=== PATIENT | male | born 1940 | race Caucasian/White ===

== ENCOUNTER → 2022-04-15 08:36 | Outpatient (BNVA) | payer MEDICARE, BC, SELFPAY | PROVIDERS: PCP Family Medicine; Visit Provider Nurse Practitioner Family | DX: G20 Parkinson's disease (principal); G47.52 REM sleep behavior disorder; I95.1 Orthostatic hypotension | CPT/HCPCS: 99202 ==

== ENCOUNTER → 2022-07-15 10:25 | Outpatient (BNVA) | payer MEDICARE, BC, SELFPAY | PROVIDERS: PCP Family Medicine; Visit Provider Nurse Practitioner Family | DX: G20 Parkinson's disease (principal); I95.1 Orthostatic hypotension; R48.8 Other symbolic dysfunctions; R41.3 Other amnesia | CPT/HCPCS: 99212 ==

== ENCOUNTER 2022-11-18 10:20 | Outpatient (AMB) | payer MEDICARE, BC, SELFPAY ==
[2022-11-18 10:24] VITALS: BP 94/60; PULSE 77; O2SAT 96; BMI 26.9
--- NOTE | 2022-11-18 10:24 | MHC.OFFVIS ---
Intake Vital Signs 11/18/22 10:24 Height 6 ft 2 in Weight 209 lb 6 oz BMI 26.9 BP 94/60 Blood Pressure Location Lt brachial Position Sitting Pulse 77 Pulse Source Pulse Oximeter Pulse Oximetry (%) 96 Oxygen Delivery Method Room Air Intake Visit Reasons: 4m follow up Parkinson's - Confirmed Intake Note: Pt presents as a 4 month f/u for Parkinsons. Pt states Things could be better. Pt's states dropping blood pressure, sudden weakness, basically passing out. last time was last Thursday. Pt stated he wasn't doing well so they got him in a chair and his eyes were wide open and blank stare. he also was stiff and after about 30 seconds came out of it and was very tired. sometimes just a bad day all around where he is weak and just clearly the blood pressure is dropping. The fainting passing out thing happened a few weeks ago, stopped the pramipexole and started the new med that helps but still feeling weak. standing up leads to feeling a period of weakness. Central Control Room Operator Required: No Accompanied by: Spouse Allergies No Known Allergies Allergy (Verified 11/18/22 10:33) Medication List - Last Reconciled 11/18/22 by KIKE Montano carbidopa-levodopa 25-100 mg 1 tab PO TID 90 days ciclopirox 8% mL topical BEDTIME clonazepam 0.5 mg PO BEDTIME droxidopa 100 mg PO TID fludrocortisone 0.1 mg PO DAILY 90 days midodrine 5 mg PO BID 90 days rasagiline 1 mg PO DAILY 90 days rivaroxaban (Xarelto) 20 mg PO QPM HPI HPI Comments History of Present Illness Details 82-yr-old male presents for f/u visit, accompanied by his . Pt has had an increase episodes of weakness, lightheadedness, and either near-syncope or brief syncope. Last week when in [place], it was rather hot, he was sitting on a pool edge, when he became weak, lightheaded, and blanked out a/w RLE spasms and his mouth seemed to pull in x's 30 sec (as he came out of this, he had one weird cough) and this was f/b fatigue. There was no urinary inc or tongue biting during the episode. Pt has reached out to the office, and Dr Davalos advised them to stop the pramipexole and start Droxydopa 100mg tid in addition to his mididrone and fludrocortisone. Since starting Droxydopa 100mg tid- BP is a bit higher (84/56-137/86, although still orthostatic) but does not notice any decrease in his OH s/s. He has not noticed any worsening of his PD s/s since stopping Pramipexole. Pt's current PD medication regimen: CD-LD 25-100mg 1 tab tid, Rasagiline 1mg qd. ADL's: Ind. Usually showers when is home. Swallowing: No issues Drooling: At night- at times Orthostatic lightheadedness: as above Constipation: None Freezing: None Stiffness: None Tremor: Not noticing much tremor Falls: He has had near falls- they think possibly r/t almost passing out. He had a fall in [place]- tripped over a few steps. Hallucinations: None Memory: Still some STM lapses and more difficulty w/ calculations. He does play bridge with friends- and often wins Sleep: Still waking up 3 times per night Exercise: Not much exercise. [facility], [facility] Medical History Anaplasmosis Atrial fibrillation COVID-19 Prostate cancer Surgical History Hx of appendectomy Status post Mohs surgery Family History Father Alzheimer disease Social History (Updated 11/18/22 @ 10:35 by Flor Aguilar CMA) Alcohol intake: current Alcohol intake frequency: holidays/special occasions only Patient Tobacco Use Status: Former Tobacco user Quit Date: 10/14/1971 Physical Exam Vital Signs: Last Vital Signs Pulse 77 11/18/22 10:24 BP 94/60 11/18/22 10:24 Pulse Ox 96 11/18/22 10:24 Oxygen Delivery Method Room Air 11/18/22 10:24 BMI result Body Mass Index 26.9 Const General: cooperative and no acute distress Resp Effort & Inspection: normal respiratory effort and able to speak in complete sentences Neuro Other: Expression: Decreased expression and blink Voice: Soft Tremor: None Tone: Mild RUE tone Dyskinesia: None today FFM: Bradykinesia- more so on right Foot taps: Mild bradykinesia Gait: Slow to stand, decreased arm swing- no choreatic hand movements, short steps, steady. Psych: pleasant affect Cognition: A&O x's 3. Less bradyphrenia Assessment & Plan Assessment & Plan (1) Parkinson's disease: Code(s): G20 - Parkinson's disease (2) Orthostatic hypotension: Code(s): I95.1 - Orthostatic hypotension (3) Memory difficulties: Code(s): R41.3 - Other amnesia (4) REM sleep behavior disorder: Code(s): G47.52 - REM sleep behavior disorder Plan Stopped Pramipexole- to reduce risk of OH. Continue Carbidopa-levodopa 25-100mg 1 tab tid (am, noon, pm) Continue Rasagiline 1mg qam. Continue Clonazepam 0.5mg qhs- we can manage this if needed. Continue Midodrine 5mg bid (am and noon) Continue Fludrocortisone 0.1mg qam. Increase Droxydopa from 100mg tid to 200mg tid- hold for BP 160/100/ Continue increased fluids- add electrolyte supplement such as liquid IV, gatorade/powerade. Monitor OH s/s and for worsening slowness. Neuro-psych eval as ordered. Future considerations: Holding Rasagiline, Adjusting CD-LD or trying Rytary. f/u in 4 months or sooner prn. Medications: Changed From droxidopa give consistently with OR without food, upon rising, at midday, late PM/at least 3hrs before bedtime 100 mg PO TID 90 caps 0RF To droxidopa give consistently with OR without food, upon rising, at midday, late PM/at least 3hrs before bedtime 200 mg (2 x 100 mg) PO TID 30 days 180 caps 0RF Coding Level of Care Code Est Pt Level 4 (73090) Diagnoses Parkinson's disease G20 Orthostatic hypotension I95.1 Memory difficulties R41.3 REM sleep behavior disorder G47.52
== END 2022-11-18 11:26 | disposition home or self-care (01) ==
PROVIDERS: Visit Provider Nurse Practitioner Family
DX: G20 Parkinson's disease (principal); I95.1 Orthostatic hypotension; R41.3 Other amnesia; G47.52 REM sleep behavior disorder
CPT/HCPCS: 99214

== ENCOUNTER → 2022-11-18 10:20 | Outpatient (BNVA) | payer MEDICARE, BC, SELFPAY | PROVIDERS: Visit Provider Nurse Practitioner Family | DX: G20 Parkinson's disease (principal); I95.1 Orthostatic hypotension; R41.3 Other amnesia; G47.52 REM sleep behavior disorder; Z79.899 Other long term (current) drug therapy | CPT/HCPCS: 99212 ==

== ENCOUNTER 2023-03-24 10:55 | Outpatient (AMB) | payer MEDICARE, BC, SELFPAY ==
[2023-03-24 10:57] VITALS: BP 114/72; PULSE 62; O2SAT 97; BMI 26.4
--- NOTE | 2023-03-24 10:57 | MHC.OFFVIS ---
Intake Vital Signs 03/24/23 10:57 Height 6 ft 2 in Weight 206 lb BMI 26.4 BP 114/72 Blood Pressure Location Rt brachial Position Sitting Pulse 62 Pulse Source Pulse Oximeter Pulse Oximetry (%) 97 Oxygen Delivery Method Room Air Intake Visit Reasons: 4m f/u Parkinson's - LVM Intake Note: Patient presents for 4 month follow up parkinson's. my balance is getting worst and blacking out and falling Allergies No Known Allergies Allergy (Verified 03/24/23 11:03) Medication List - Last Reconciled 03/29/23 by KIKE Montano carbidopa-levodopa 25-100 mg 1 tab PO TID 90 days ciclopirox 8% mL topical BEDTIME clonazepam 0.5 mg PO BEDTIME droxidopa 300 mg PO TID 30 days fludrocortisone 0.1 mg PO DAILY 90 days midodrine 5 mg PO TID 30 days rasagiline 1 mg PO DAILY 90 days rivaroxaban (Xarelto) 20 mg PO QPM HPI HPI Comments History of Present Illness Details 82-yr-old male presents for f/u visit. Pt's primary concerns are: Pt is having more frequent episodes of orthostatic lightheadedness, almost to the point of blacking out. Occurs more so in the evening. This can occur immediately upon standing, but more often occurs after taking several steps or even longer. In the home, he is able to mitigate by having access to chairs/seats. His BP has been running a bit higher than before, the SBP is now usually in the 110s. He is drinking more fluids- now drinking a full glass of water w/ his meds. His Droxidopa was increased to 300mg tid since the last visit. Pt's current PD medication regimen: CD-LD 25-100mg 1 tab tid, Rasagiline 1mg qd. Droxidopa 300mg tid (8am, 12pm, 4:30pm), fludrocortisone 0.1mg qam, midodrine 5mg bid (8am and 12pm) ADL's: Ind. Usually showers when is home. Swallowing: No issues Drooling: At night- at times Orthostatic lightheadedness: as above Constipation: None Freezing: None Stiffness: None Tremor: Not noticing much tremor Falls: One fall, thought there was a chair and tried to sit. Hallucinations: None Memory: Still some STM lapses and more difficulty w/ calculations. Still playing card games- and doing well. Sleep: Still waking up at night. Exercise: Not much exercise. Plans to try swimming in the small pool at the [facility]. [facility] Medical History (Reviewed 11/18/22 @ 10:35 by Flor Aguilar [facility]) Anaplasmosis Atrial fibrillation COVID-19 Prostate cancer Surgical History Status post Mohs surgery Hx of appendectomy Family History Father Alzheimer disease Social History Alcohol intake: current Alcohol intake frequency: holidays/special occasions only Patient Tobacco Use Status: Former Tobacco user Quit Date: 10/14/1971 Review of Systems Const All systems reviewed & are unremarkable except as noted in HPI and below Physical Exam Vital Signs: Last Vital Signs Pulse 62 03/24/23 10:57 BP 114/72 03/24/23 10:57 Pulse Ox 97 03/24/23 10:57 Oxygen Delivery Method Room Air 03/24/23 10:57 BMI result Body Mass Index 26.4 Const General: cooperative and no acute distress Resp Effort & Inspection: normal respiratory effort and able to speak in complete sentences Neuro Other: General: A&O x's 3 Expression: Decreased expression and blink Voice: Soft Tremor: None Tone: Mild RUE tone Dyskinesia: None today FFM: Bradykinesia- more so on right Foot taps: Mild bradykinesia Gait: Slow to stand, decreased arm swing- no chorea in hands, short steps, steady. 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 Continue Clonazepam 0.5mg qhs- we can manage this if needed. Increase Midodrine from 5mg bid (am and noon) to 5mg bid (am and noon) and 2.5-5mg (4:30pm) Continue Fludrocortisone 0.1mg qam. Continue Droxydopa 300mg tid- hold for BP 160/100 Continue increased fluids w/ electrolyte supplement such as liquid IV, gatorade/powerade. Neuro-psych eval as ordered. Previous PD trials- Pramipexole- stopped to reduce OH risk. Future considerations: Holding Rasagiline, Adjusting CD-LD or trying Rytary. ? f/u in 4 months or sooner prn. Medications: Changed From midodrine do not give last dose of day after 6PM or within 4 hrs of bedtime 5 mg PO BID 60 tabs 3RF 30 days To midodrine do not give last dose of day after 6PM or within 4 hrs of bedtime 5 mg PO TID 90 tabs 3RF 30 days Coding Level of Care Code Est Pt Level 4 (89194) Diagnoses Parkinson's disease without dyskinesia G20.A1 Orthostatic hypotension I95.1 REM sleep behavior disorder G47.52 Acalculia R48.8
== END 2023-03-24 12:07 | disposition home or self-care (01) ==
PROVIDERS: PCP Family Medicine; Visit Provider Nurse Practitioner Family
DX: G20.A1 Parkinson's disease without dyskinesia, without mention of fluctuations (principal); I95.1 Orthostatic hypotension; G47.52 REM sleep behavior disorder; R48.8 Other symbolic dysfunctions
CPT/HCPCS: 99214

== ENCOUNTER → 2023-03-24 10:55 | Outpatient (BNVA) | payer MEDICARE, BC, SELFPAY | PROVIDERS: PCP Family Medicine; Visit Provider Nurse Practitioner Family | DX: G20.A1 Parkinson's disease without dyskinesia, without mention of fluctuations (principal); I95.1 Orthostatic hypotension; G47.52 REM sleep behavior disorder; R48.8 Other symbolic dysfunctions | CPT/HCPCS: 99212 ==

== ENCOUNTER 2023-07-22 10:49 | Outpatient (AMB) | payer MEDICARE, BC, SELFPAY ==
--- NOTE | 2023-07-22 10:52 | A.OFFVIS_ITS ---
Intake Vital Signs 07/22/23 10:53 Height 6 ft 2 in Weight 199 lb 8 oz BMI 25.6 BP 88/58 L Blood Pressure Location Rt brachial Position Sitting Respiration 16 Pulse 81 Pulse Source Pulse Oximeter Pulse Oximetry (%) 97 Oxygen Delivery Method Room Air Intake Visit Reasons: follow up-conf Intake Note: Pt presents for a 4 month follow up for Parkinson's. Pt reports an increase in falls over the last few weeks, increased weakness, and walking has become a challenge. His appetite is decreasing and he is sleeping more during the day. Manager Pest Required: No Allergies No Known Allergies Allergy (Verified 07/22/23 10:52) Medication List - Last Reconciled 07/22/23 by Delmis Davalos MD carbidopa-levodopa 25-100 mg 1 tab PO TID 90 days clonazepam 0.5 mg PO BEDTIME droxidopa 300 mg PO TID 30 days fludrocortisone 0.1 mg PO DAILY 90 days midodrine 5 mg PO TID 30 days rasagiline 1 mg PO DAILY 90 days rivaroxaban (Xarelto) 20 mg PO QPM HPI HPI Comments History of Present Illness Details 83-yr-old male presents for f/u visit. Pt's primary concerns are: Pt is having more falls - had 3 major falls in the past few weeks .The last fall was in the kitchen - he stood up after sitting for a while .The fall prior to that was in the hallway outside the bathroom . The falls are usually preceded by feeling of not having control and it is usually standing up after prolonged period of time and usually in the later part of the day. e Frequent episodes of orthostatic lightheadedness, almost to the point of bl acking out. Occurs more so in the evening. This can occur immediately upon standing, but more often occurs after taking several steps or even longer. In the home, he is able to mitigate by having access to chairs/seats. His BP has been running a bit higher than before, the SBP is now usually in the 110s. He is drinking more fluids- now drinking a full glass of water w/ his meds. His Droxidopa was increased to 300mg tid since the last visit. Pt's current PD medication regimen: CD-LD 25-100mg 1 tab tid, Rasagiline 1mg qd. Droxidopa 300mg tid (8am, 12pm, 4:30pm), fludrocortisone 0.1mg qam, midodrine 5mg bid (8am and 12pm) ADL's: Ind. Usually showers when is home. Swallowing: No issues Drooling: At night- at times Orthostatic lightheadedness: as above Constipation: None Freezing: None Stiffness: None Tremor: Not noticing much tremor Falls: One fall, thought there was a chair and tried to sit. Hallucinations: None Memory: Still some Short term lapses and more difficulty w/ calculations. Still playing card games- and doing well. Sleep: Still waking up at night. Exercise: Not much exercise. Plans to try swimming in the small pool at the [employer]. [facility] Medical History 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 Atrial fibrillation Prostate cancer Surgical History Status post Mohs surgery Hx of appendectomy Family History Father Alzheimer disease Social History Alcohol intake: current Alcohol intake frequency: holidays/special occasions only Patient Tobacco Use Status: Former Tobacco user Quit Date: 10/14/1971 Physical Exam Vital Signs: Last Vital Signs Pulse 81 07/22/23 10:53 Resp 16 07/22/23 10:53 BP 88/58 L 07/22/23 10:53 Pulse Ox 97 07/22/23 10:53 Oxygen Delivery Method Room Air 07/22/23 10:53 BMI result Body Mass Index 25.6 Const General: cooperative and no acute distress Resp Effort & Inspection: normal respiratory effort and able to speak in complete sentences Neuro Other: General: A&O x's 3 Expression: Decreased expression and blink Voice: Soft Tremor: None Tone: Mild RUE tone Dyskinesia: None today FFM: Bradykinesia- more so on right Foot taps: Mild bradykinesia Gait: Slow to stand, decreased arm swing- no chorea in hands, short steps, steady. 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 Continue Clonazepam 0.5mg qhs- we can manage this if needed. Midodrine from 5mg bid (am and noon) to 5mg tid (am and noon) and 2.5-5mg (4:30pm) Increase Fludrocortisone 0.1mg am - noon evening Continue Droxydopa 300mg tid- hold for BP 160/100 Continue increased fluids w/ electrolyte supplement such as liquid IV, gatorade/powerade. Neuro-psych eval as ordered. Compression stockings, increase salt , take time when he changes position from sitting to standing position will refer to [facility] at [facility] ? f/u in 4 months or sooner prn. Orders: Referrals Neurology Referral G20.A1 - Parkinson's disease without dyskinesia, without mention of fluctuations, I95.1 - Orthostatic hypotension Medications: New [compression stockings] As directed 1 ea 0RF orthostatic hypotension Changed From fludrocortisone 0.1 mg PO DAILY 90 days 90 tabs 1RF To fludrocortisone 0.1 mg PO TID 270 tabs 1RF 90 days Coding Level of Care Code Est Pt Level 5 (69261) Diagnoses Parkinson's disease without dyskinesia G20.A1 Orthostatic hypotension I95.1 REM sleep behavior disorder G47.52 Acalculia R48.8 Time Spent (min) 45 Comment 25 min with patient, 10 min reviewing records 10 min documenting
[2023-07-22 10:53] VITALS: BP 88/58; PULSE 81; RESP 16; O2SAT 97; BMI 25.6
== END 2023-07-22 11:42 | disposition home or self-care (01) ==
PROVIDERS: PCP Family Medicine; Visit Provider Psychiatry & Neurology Neurology
DX: G20.A1 Parkinson's disease without dyskinesia, without mention of fluctuations (principal); I95.1 Orthostatic hypotension; G47.52 REM sleep behavior disorder; R48.8 Other symbolic dysfunctions
CPT/HCPCS: 99215

== ENCOUNTER → 2023-07-22 10:49 | Outpatient (BNVA) | payer MEDICARE, BC, SELFPAY | PROVIDERS: PCP Family Medicine; Visit Provider Psychiatry & Neurology Neurology | DX: G20.A1 Parkinson's disease without dyskinesia, without mention of fluctuations (principal); I95.1 Orthostatic hypotension; R29.6 Repeated falls; G47.52 REM sleep behavior disorder; R48.8 Other symbolic dysfunctions | CPT/HCPCS: 99212 ==

== ENCOUNTER 2023-10-28 17:25 | Inpatient (IN) | payer MEDICARE, SELFPAY ==
[2023-10-28] VITALS (7 sets, daily range): BP systolic 170–207; BP diastolic 98–147; PULSE 63–79; RESP 12–18; TEMP 36.8–37; O2SAT 96–98; BMI 23.5; BMI 25.2
--- NOTE | ~2023-10-28 | MR_ITS ---
MRI OF THE BRAIN WITHOUT IV CONTRAST INDICATION: Speech difficulty. Rule out stroke. COMPARISON: CTA head and neck October 28, 2023. TECHNIQUE: Multiplanar multisequence MR imaging of the brain was obtained without IV contrast. FINDINGS: There is no hydrocephalus, extra-axial surface collection, or herniation. There is global cerebral volume loss and there is moderate chronic microangiopathy. The major flow voids at the skull base are preserved. There is no acute infarct on diffusion-weighted imaging. There is no intracranial hemorrhage on the gradient recalled echo acquisition. The midline structures are normal. The cerebellar tonsils are normally positioned. The cerebellum and brainstem are normal. The craniocervical junction is normal. There is an indeterminate 2 cm marrow replacing lesion within hyperostosis frontalis interna in the right frontal calvarium on image 21 series 7 that can be further assessed with bone scan. The visualized soft tissues are unremarkable. There is hyperostosis frontalis interna. MR/MR head/brain wo con IMPRESSION: * No acute intracranial findings. No acute infarcts. * There is global volume loss and there is moderate chronic microangiopathy. * There is an indeterminate 2 cm marrow replacing lesion within hyperostosis frontalis interna in the right frontal calvarium on image 21 series 7 that can be further assessed with bone scan.
--- NOTE | ~2023-10-28 | CT_ITS ---
EXAMINATION: CT angio head neck stroke CLINICAL INFORMATION: Stroke protocol. COMPARISON: No relevant prior imaging. TECHNIQUE: Materials Management Clerk images were obtained. A CT angiogram of the head and neck was performed in the arterial phase after the intravenous administration of 70 mL Omnipaque 350. Pre and delayed postcontrast images of the head were also obtained. 3D images were processed on an independent workstation under concurrent supervision. Arterial stenoses are measured in accordance with NASCET criteria or similar method if applicable. This CT examination was performed using dose optimization techniques as appropriate, including one or more of the following: Automated exposure control, iterative reconstruction, and adjustment of technique factors (mA and/or kVp) according to patient size (this includes techniques or standardized protocols for targeted exams where dose is matched to indication/reason for exam). Fleischner Society criteria for the followup of incidental pulmonary nodules was implemented if appropriate. Total exam dose-length product 1598 mGy-cm FINDINGS: Head: Delayed postcontrast images reveal no abnormal intracranial mass or enhancement. There is no intracranial mass effect or midline shift. Lateral and third ventricles are normal. No hydrocephalus. Villar-white matter differentiation is preserved and there is no evidence of acute territorial infarct. The calvarium and skull base are intact. Mastoid air cells and middle ear cavities are well aerated. No active paranasal sinus disease. CT angiogram neck: The aortic arch apex is normal. Origins of the major aortic branches are widely patent. Common carotid arteries and carotid bifurcations are. No stenosis of the extracranial internal carotid arteries. The cervical segment of the dominant right vertebral artery is widely patent. Cervical segments of the vertebral arteries are widely patent. CT angiogram head: Intracranial internal carotid arteries are patent. The intradural vertebral artery segments and basilar artery are patent. Anterior, middle, and posterior cerebral artery complexes are normal. No intracranial large vessel occlusion. Other: Soft tissues of the neck including the thyroid gland are normal. Lung apices are clear. No acute osseous finding. There is multilevel degenerative spondylosis of the cervical spine with at least mild canal stenosis at the levels of C4-C5, C5-C6, and C6-C7. No worrisome lytic or blastic osseous lesion. CT/CT angio head neck stroke IMPRESSION: Unremarkable examination in that there is no evidence of acute territorial infarct. No abnormal intracranial mass or enhancement. There is no stenosis of the cervical carotid or vertebral arteries. No intracranial large vessel occlusion. There is multilevel degenerative spondylosis of the cervical spine with at least mild canal stenosis at levels of C4-C5, C5-C6, and C6-C7. If there are clinical symptoms of compressive myelopathy then a dedicated cervical spine MRI can be obtained for better anatomic characterization of the cord and canal. This critical result was discussed with Dr. Garcia at 6:07 PM on 10/28/2023 and it was ascertained that the content and urgency of the report was understood at the time of direct communication.
--- NOTE | ~2023-10-28 | CT_ITS ---
EXAMINATION: CT HEAD WITHOUT CONTRAST (STROKE PROTOCOL) CLINICAL INFORMATION: Stroke protocol. COMPARISON: None. TECHNIQUE: Contiguous axial imaging was performed from the skull base to vertex without intravenous administration of contrast. Coronal and sagittal reformatted images are performed at the CT scanner. [This CT examination was performed using dose optimization techniques as appropriate, variously including the following: *Automated exposure control *Adjustment of mA and/or kV according to patient size (this includes techniques or standardized protocols for targeted exams where dose is matched to indication/reason for exam; i.e. extremities or head) *Use of iterative reconstruction technique] DLP: 766 mGy-cm. FINDINGS: There is no evidence of acute intracranial hemorrhage or territorial infarction. No abnormal mass-effect or midline shift is seen. Villar to white matter differentiation is well preserved. No extra-axial fluid collections are identified. There is generalized global volume loss. There is moderate prominence of the ventricles and the sulci . There is mild hypodensity of the periventricular white matter due to chronic small vessel ischemic disease. There are vascular calcifications of the internal carotid arteries bilaterally. There is no osseous abnormality. The mastoid air cells and visualized portions of the paranasal sinuses are well-aerated. CT/CT head for stroke IMPRESSION: No acute intracranial pathology. This critical result was discussed with Miguelina Prater NP at 1749 hours on 10/28/2023. It was ascertained that the content and urgency of the report was understood at the time of direct communication.
--- NOTE | 2023-10-28 17:29 | ED_ITS ---
HPI - General Adult General Chief complaint: Stroke Stated complaint: garbled speech, weakness, sudden onset Time Seen by Provider: 10/28/23 17:33 Related Data Home Medications ?Medication ?Instructions ?Recorded ?Confirmed clonazepam 0.5 mg tablet 0.5 mg PO BEDTIME 04/11/22 10/28/23 rivaroxaban 20 mg tablet (Xarelto) 20 mg PO QPM 04/11/22 10/28/23 Previous Rx's ?Medication ?Instructions ?Recorded compression stockings #1 ea 07/22/23 fludrocortisone 0.1 mg tablet 0.1 mg PO TID 90 days #270 tabs 08/10/23 midodrine 10 mg tablet 10 mg PO TID 90 days #270 tabs 08/10/23 rasagiline 1 mg tablet 1 mg PO DAILY 90 days #90 tabs 08/17/23 droxidopa 300 mg capsule 300 mg PO TID 30 days #90 caps 09/14/23 carbidopa 25 mg-levodopa 100 mg 1 tab PO TID 90 days #270 tabs 10/20/23 tablet Allergies Allergy/AdvReac Type Severity Reaction Status Date / Time No Known Allergies Allergy Verified 10/28/23 17:32 [facility] Past Medical History Medical History 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 Atrial fibrillation Prostate cancer Surgical History Status post Mohs surgery Hx of appendectomy Family History Family History Father Alzheimer disease Social History Social History Household Members: Spouse Housing: House Do you presently have visiting nurse or other home services: No Alcohol intake: current Alcohol intake frequency: holidays/special occasions only Alcohol type: beer Patient Tobacco Use Status: Former Tobacco user Advance Directives Date on File: 10/29/23 Physical Exam ED Vital Signs: Vital Signs - 24 hr 10/28/23 17:28 Temperature 98.6 F Pulse Rate 69 Respiratory Rate 18 Blood Pressure 200/147 H Pulse Oximetry 98 Oxygen Delivery Method Room Air BMI result Body Mass Index 25.2 NIH Stroke Scale Internal: Initial- Upon Arrival Level of Consciousness: Alert Level of Consciousness Questions: Answers both questions correctly Level of Consciousness Commands: Performs both tasks correctly Best Gaze: Normal Visual: No visual loss Facial Palsy: Normal Motor Arm (Right): No drift Motor Arm (Left): No drift Motor Leg (Right): No drift Motor Leg (Left): No drift Limb Ataxia: Absent Sensory: Normal Best Language: No aphasia Dysarthia: Mild to moderate dysarthria Extinction and Inattention: No abnormality Score: 1 Course Course Course Narrative: This is a rapid medical exam performed by Vaibhav Prater NP: Additional HPI, ROS, PE not included below will be deferred to primary provider. Patient is an 83-year-old male with Parkinson's, orthostatic hypotension presenting to the ED with complaint of difficulty speaking for the past hour per . She also reports that he seems more tired than normal today. BP 200/147 in triage, LUE weakness noted in triage. Patient and both feel speech has improved since arrival to the ED. Plan: stroke alert Medications Administered Generic Name Dose Route Start Last Admin Trade Name Freq PRN Reason Stop Dose Admin Carbidopa/Levodopa 1 tab 10/29/23 09:00 10/29/23 20:44 Carbidopa/Levodopa 25/100 Tablet PO 1 tab TID DREW Administration Fludrocortisone Acetate 0.1 mg 10/29/23 09:00 10/29/23 20:44 Fludrocortisone Acetate 0.1 Mg Tablet PO 0.1 mg TID DREW Administration Dextrose 1,000 mls @ 100 mls/hr 10/29/23 15:30 10/29/23 16:22 D5w IVCONT 10/29/23 22:00 100 mls/hr .Q10H DREW Administration Midodrine 10 mg 10/29/23 09:00 10/29/23 20:44 Midodrine Hcl 10 Mg Tablet PO 10 mg TID DREW Administration Rivaroxaban 20 mg 10/29/23 17:00 10/29/23 16:17 Rivaroxaban 20 Mg Tablet PO 20 mg DAILY@1700 DREW Administration Sodium Chloride 3 ml 10/29/23 00:00 10/29/23 16:23 0.9 % Sodium Chloride Flush 3 Ml Syringe IVFLUSH Not Given QSHIFT DREW Discontinued Medications Generic Name Dose Route Start Last Admin Trade Name Freq PRN Reason Stop Dose Admin Amlodipine Besylate 10 mg 10/28/23 19:07 10/28/23 19:19 Amlodipine Besylate 10 Mg Tablet PO 10/28/23 19:08 10 mg ONCE ONE Administration Protocol Atorvastatin Calcium 80 mg 10/28/23 20:10 10/28/23 20:21 Atorvastatin Calcium 80 Mg Tablet PO 10/28/23 20:11 80 mg ONCE ONE Administration Dextrose/Sodium Chloride 1,000 mls @ 100 mls/hr 10/29/23 06:15 10/29/23 16:52 D51/2ns IVCONT 10/29/23 22:14 Infused .Q10H DRWE Infusion Labetalol HCl 100 mg 10/28/23 20:16 10/28/23 20:22 Labetalol Hcl 100 Mg Tablet PO 10/28/23 20:17 100 mg ONCE ONE Administration Protocol Potassium Chloride 60 meq 10/28/23 18:58 10/28/23 19:16 Potassium Chloride Packet 20 Meq Packet PO 10/28/23 18:59 60 meq ONCE ONE Administration Potassium Chloride 40 meq 10/29/23 15:29 10/29/23 16:17 Potassium Chloride Packet 20 Meq Packet PO 10/29/23 15:30 40 meq ONCE ONE Administration Rivaroxaban 20 mg 10/28/23 19:53 10/28/23 20:21 Rivaroxaban 20 Mg Tablet PO 10/28/23 19:54 20 mg ONCE ONE Administration Medical Decision Making Lab Data 10/29/23 04:54 10/29/23 14:12 Labs: Lab Results 10/28/23 10/28/23 10/28/23 Range/Units 17:48 17:49 18:10 WBC 4.9 (4.8-10.8) X10*3/uL RBC 3.63 L (4.60-5.80) X10*6/uL Hgb 12.6 L (14.0-18.0) g/dl Hct 36.1 L (42.0-52.0) % MCV 99.4 H (80.0-98.0) fL MCH 34.7 H (27.0-33.0) pg MCHC 34.9 (31.0-36.0) g/dl RDW 12.6 (11.0-16.0) % Plt Count 148 L (160-400) X10*3/uL MPV 11.2 (9.4-12.4) fL Immature Gran % (Auto) 0.2 (0.0-0.4) % Neut % (Auto) 68.6 (45-73) % Lymph % (Auto) 18.4 L (20-40) % [place] % (Auto) 10.8 (2-11) % Eos % (Auto) 1.6 (0-4) % Baso % (Auto) 0.4 (0-2) % Lymph # (Auto) 0.9 L (1.2-4.9) X10*3/uL [place] # (Auto) 0.5 (0.1-1.2) X10*3/uL Eos # (Auto) 0.1 (0.0-0.4) X10*3/uL Baso # (Auto) 0.0 (0.0-0.2) X10*3/uL Abs Immat Gran (auto) 0.01 (0.00-0.03) X10*3/uL Absolute Neuts (auto) 3.4 (2.0-8.3) x10*3/uL Absolute Nucleated RBC 0.000 (0.0-0.012) X10*3/uL Nucleated RBC % (auto) 0.0 (0.0-0.2) /100WBC PT 13.8 H (11.1-13.3) SEC Whole Blood PT 14.1 H (11.1-13.5) sec INR 1.1 (0.9-1.1) Whole Blood INR 1.2 H (0.9-1.1) APTT 33.5 (26.0-36.8) SEC Sodium 144 (135-145) mmol/L Potassium 2.7 L* (3.3-5.1) mmol/L Chloride 103 (96-108) mmol/L Carbon Dioxide 31 H (22-29) mmol/L Anion Gap 13 (12-20) BUN 18 H (9-16) mg/dL Creatinine 1.19 (0.5-1.4) mg/dL Estim Creat Clear Calc 56.6 Estimated GFR 59 POC Glucose 122 H (60-115) mg/dL Random Glucose 115 (60-115) mg/dL Calcium 9.2 (8.4-10.2) mg/dL Magnesium 2.1 (1.6-2.6) mg/dL Troponin I High Sens 5.9 (<3.5-35.0) ng/L Triglycerides 111 (<150) mg/dL Cholesterol 212 H (<200) mg/dL LDL Cholesterol, Calc 128 H (<100) mg/dL HDL Cholesterol 62 (>40) mg/dL Stool Occult Blood (NEGATIVE) 10/28/23 Range/Units 19:25 WBC (4.8-10.8) X10*3/uL RBC (4.60-5.80) X10*6/uL Hgb (14.0-18.0) g/dl Hct (42.0-52.0) % MCV (80.0-98.0) fL MCH (27.0-33.0) pg MCHC (31.0-36.0) g/dl RDW (11.0-16.0) % Plt Count (160-400) X10*3/uL MPV (9.4-12.4) fL Immature Gran % (Auto) (0.0-0.4) % Neut % (Auto) (45-73) % Lymph % (Auto) (20-40) % [place] % (Auto) (2-11) % Eos % (Auto) (0-4) % Baso % (Auto) (0-2) % Lymph # (Auto) (1.2-4.9) X10*3/uL [place] # (Auto) (0.1-1.2) X10*3/uL Eos # (Auto) (0.0-0.4) X10*3/uL Baso # (Auto) (0.0-0.2) X10*3/uL Abs Immat Gran (auto) (0.00-0.03) X10*3/uL Absolute Neuts (auto) (2.0-8.3) x10*3/uL Absolute Nucleated RBC (0.0-0.012) X10*3/uL Nucleated RBC % (auto) (0.0-0.2) /100WBC PT (11.1-13.3) SEC Whole Blood PT (11.1-13.5) sec INR (0.9-1.1) Whole Blood INR (0.9-1.1) APTT (26.0-36.8) SEC Sodium (135-145) mmol/L Potassium (3.3-5.1) mmol/L Chloride (96-108) mmol/L Carbon Dioxide (22-29) mmol/L Anion Gap (12-20) BUN (9-16) mg/dL Creatinine (0.5-1.4) mg/dL Estim Creat Clear Calc Estimated GFR POC Glucose (60-115) mg/dL Random Glucose (60-115) mg/dL Calcium (8.4-10.2) mg/dL Magnesium (1.6-2.6) mg/dL Troponin I High Sens (<3.5-35.0) ng/L Triglycerides (<150) mg/dL Cholesterol (<200) mg/dL LDL Cholesterol, Calc (<100) mg/dL HDL Cholesterol (>40) mg/dL Stool Occult Blood NEGATIVE (NEGATIVE) Discharge Plan Discharge Clinical Impression: Brain TIA, Hypertension, Acute hypokalemia Patient Disposition: Admitted As Inpatient Interventions: Admission Worksheet (ED) Last Done: 10/29/23 14:20 Discharge Date/Time: 10/29/23 15:42
--- NOTE | 2023-10-28 17:31 | ECG_ITS ---
Test Reason : stroke Blood Pressure : / mmHG Vent. Rate : 070 BPM Atrial Rate : 070 BPM P-R Int : 152 ms QRS Dur : 078 ms QT Int : 434 ms P-R-T Axes : 066 032 061 degrees QTc Int : 468 ms Normal sinus rhythm Nonspecific ST and T wave abnormality Abnormal ECG No previous ECGs available Referred By: Miguelina Prater Electronically Signed By:J LUIS GOMES
--- NOTE | 2023-10-28 17:39 | ED.NEUROSD ---
HPI - Neuro Symptoms/Deficit General Chief Complaint: Stroke Stated Complaint: garbled speech, weakness, sudden onset Time Seen by Provider: 10/28/23 17:33 Source: patient and family Mode of arrival: ambulatory Limitations: no limitations History of Present Illness ED Provider: Dr. Bridget Garcia HPI Narrative: Patient comes to the emergency room accompanied by his . The states that approximately 13:30 or 14:00, patient was left at home alone, his went to do some errands. At this time, patient was at his baseline. When patient's returned home at 04:30, it was noticed that the patient had significantly wobbly gait, patient had difficulty finding words and his speech was garbled. By the time that they reached the emergency room, the and the state that this speech is improving but at times the patient has difficulty finding words. According to the , the patient has history of Parkinson's, sometimes he has good days and bad days with his Parkinson's symptoms. The patient's states that he does fall quite a bit due to Parkinson's. No recent falls, patient takes Xarelto for atrial fibrillation Related Data Home Medications ?Medication ?Instructions ?Recorded ?Confirmed clonazepam 0.5 mg tablet 0.5 mg PO BEDTIME 04/11/22 07/22/23 rivaroxaban 20 mg tablet (Xarelto) 20 mg PO QPM 04/11/22 07/22/23 Previous Rx's ?Medication ?Instructions ?Recorded compression stockings #1 ea 07/22/23 fludrocortisone 0.1 mg tablet 0.1 mg PO TID 90 days #270 tabs 08/10/23 midodrine 10 mg tablet 10 mg PO TID 90 days #270 tabs 08/10/23 rasagiline 1 mg tablet 1 mg PO DAILY 90 days #90 tabs 08/17/23 droxidopa 300 mg capsule 300 mg PO TID 30 days #90 caps 09/14/23 carbidopa 25 mg-levodopa 100 mg 1 tab PO TID 90 days #270 tabs 10/20/23 tablet Allergies Allergy/AdvReac Type Severity Reaction Status Date / Time No Known Allergies Allergy Verified 10/28/23 17:32 Review of Systems Review of Systems: Constitutional : No Weight loss, No Fever, No Chills, No Night Sweats, No Fatigue, No Malaise ENT/Mouth : No Hearing loss, No Ear Pain, No Nasal Congestion, No Sinus Pain, No Hoarseness, No sore throat, No Rhinorrhea, No Swallowing Difficulty Eyes: No Eye Pain, No Swelling, No Redness, No Foreign Body, No Discharge, No Vision Changes Cardiovascular : No Chest Pain, No SOB, No Dyspnea on Exertion, No Orthopnea, No Edema, No Palpitations Respiratory : No Cough, No Sputum, No Wheezing, No Smoke Exposure, No Dyspnea Gastrointestinal : No Nausea, No Vomiting, No Diarrhea, No Constipation, No abdominal Pain, No Hematochezia, No Melena Genitourinary : no irregular bleeding, No Dysuria, No Urinary Frequency, No Hematuria, No Urinary Incontinence, No Urgency, No Flank Pain, No Urinary Flow Changes, No Hesitancy Musculoskeletal : No joint pain, No Myalgias, No Joint Swelling Skin : No Skin Lesions, No rash Neuro : No Weakness, No Numbness, No Paresthesias, No Loss of Consciousness, complaining of aphasia and dysarthria intermittently Psych : No Anxiety/Panic, No Depression, No SI/HI/AH/VH, No Social Issues, Heme/Lymph: No Bruising, No Bleeding,No Lymphadenopathy Endocrine : No Polyuria, No Polydipsia, No Temperature Intolerance PMFSH Past Medical History Medical History 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 Atrial fibrillation Prostate cancer Surgical History Status post Mohs surgery Hx of appendectomy Family History Family History Father Alzheimer disease Social History Social History Alcohol intake: current Alcohol intake frequency: holidays/special occasions only Alcohol type: beer Patient Tobacco Use Status: Former Tobacco user Smoked in Last 30 Days: No Use of substances other than those prescribed or required for medical reasons: No Advance Directives: Yes Advance Directives Information Provided: No Advance Directives on File: No Do you have a plan to hurt others: No Plan Physical Exam Vital Signs: Vital Signs: Last Vital Signs Temp 98.3 F 10/28/23 18:10 Pulse 77 10/28/23 19:07 Resp 16 07/24/24 19:07 BP 186/103 H 10/28/23 19:19 Pulse Ox 98 10/28/23 19:07 O2 Del Method Room Air 10/28/23 19:07 BMI result Body Mass Index 25.2 Const: Other: Appearance: Alert. Oriented X3. No acute distress. Eyes: Pupils equal, round and reactive to light. ENT: Pharynx normal. Neck: Normal inspection. Neck supple. No lymph nodes noted. No crepitus CVS: Normal heart rate and rhythm. Pulses normal. Normal S1 and S2 Respiratory: No respiratory distress. Breath sounds normal. No Wheezing. No rales Abdomen: Soft and nontender. No rigidity. No distention. Skin: Skin warm and dry. Normal skin color. Normal skin turgor. Extremities: No lower extremity edema. No Lacerations. No Rash Neuro: Oriented X 3. No motor deficit. No sensory deficit. Moving all extremities. No slurred speech. CN 2 through 12 grossly intact, intermittently mild aphasia and dysarthria. Otherwise, fairly normal speech. Psych: calm, cooperative, normal affect Course Course Course Narrative: -when patient was in CT scan waiting between the dry and CT with contrast, patient was re-evaluated. Patient states that he feels much better, patient's speech is back to normal. -when patient returned to his room, patient continued being at his baseline with no dysarthria or aphasia. -patient is not a candidate for TNK, patient takes Xarelto. Medications Administered Discontinued Medications Generic Name Dose Route Start Last Admin Trade Name Freq PRN Reason Stop Dose Admin Amlodipine Besylate 10 mg 10/28/23 19:07 10/28/23 19:19 Amlodipine Besylate 10 Mg Tablet PO 10/28/23 19:08 10 mg ONCE ONE Administration Protocol Potassium Chloride 60 meq 10/28/23 18:58 10/28/23 19:16 Potassium Chloride Packet 20 Meq Packet PO 10/28/23 18:59 60 meq ONCE ONE Administration Medical Decision Making Medical Decision Making [facility] Narrative: -CT scan of the head was discussed with Dr. Fischer from [facility], no acute findings. CTA pending -I discussed the CTA with radiology on-call, no blood clot. -my interpretation of labs, patient is a bit anemic, hemoglobin 12.6, hematocrit 36.1., potassium 2.7, being repleted p.o.. -according to the patient's , the patient has never been told that he is anemic. We will proceed with a guaiac stool card study, patient and agreeable. Patient does take Xarelto for AFib. The reports that the patient has been losing weight over the last few months. However, patient is eating less than usual. -guaiac test was heme negative -patient's blood pressure has been a bit elevated, between 200 to 180s systolic. Patient does not take blood pressure medications, patient does take midodrine for orthostatic hypotension. -patient was given a dose of amlodipine, blood pressure in the 180s systolic. Next, patient was given a dose of p.o. labetalol 100 mg -I discussed the patient with Dr. Reno and with Dr. Raya from the Medicine team, patient being admitted Differential Diagnosis Differential Diagnoses: The differential diagnosis associated with the presentation includes (TIA, CVA, hypertensive urgency, Parkinson's) Admission/Observation Consideration of admission/observation: Escalation of care including admission/observation considered Consult Healthcare Provider Management of the patient was discussed with: Hospitalist Lab Data MDM Lab Attestation statement: I reviewed the patient's lab results. 10/28/23 18:10 10/28/23 18:10 Labs: Lab Results 10/28/23 10/28/23 10/28/23 Range/Units 17:48 17:49 18:10 WBC 4.9 (4.8-10.8) X10*3/uL RBC 3.63 L (4.60-5.80) X10*6/uL Hgb 12.6 L (14.0-18.0) g/dl Hct 36.1 L (42.0-52.0) % MCV 99.4 H (80.0-98.0) fL MCH 34.7 H (27.0-33.0) pg MCHC 34.9 (31.0-36.0) g/dl RDW 12.6 (11.0-16.0) % Plt Count 148 L (160-400) X10*3/uL MPV 11.2 (9.4-12.4) fL Immature Gran % (Auto) 0.2 (0.0-0.4) % Neut % (Auto) 68.6 (45-73) % Lymph % (Auto) 18.4 L (20-40) % [place] % (Auto) 10.8 (2-11) % Eos % (Auto) 1.6 (0-4) % Baso % (Auto) 0.4 (0-2) % Lymph # (Auto) 0.9 L (1.2-4.9) X10*3/uL [place] # (Auto) 0.5 (0.1-1.2) X10*3/uL Eos # (Auto) 0.1 (0.0-0.4) X10*3/uL Baso # (Auto) 0.0 (0.0-0.2) X10*3/uL Abs Immat Gran (auto) 0.01 (0.00-0.03) X10*3/uL Absolute Neuts (auto) 3.4 (2.0-8.3) x10*3/uL Absolute Nucleated RBC 0.000 (0.0-0.012) X10*3/uL Nucleated RBC % (auto) 0.0 (0.0-0.2) /100WBC PT 13.8 H (11.1-13.3) SEC Whole Blood PT 14.1 H (11.1-13.5) sec INR 1.1 (0.9-1.1) Whole Blood INR 1.2 H (0.9-1.1) APTT 33.5 (26.0-36.8) SEC Sodium 144 (135-145) mmol/L Potassium 2.7 L* (3.3-5.1) mmol/L Chloride 103 (96-108) mmol/L Carbon Dioxide 31 H (22-29) mmol/L Anion Gap 13 (12-20) BUN 18 H (9-16) mg/dL Creatinine 1.19 (0.5-1.4) mg/dL Estim Creat Clear Calc 56.6 Estimated GFR 59 POC Glucose 122 H (60-115) mg/dL Random Glucose 115 (60-115) mg/dL Calcium 9.2 (8.4-10.2) mg/dL Troponin I High Sens 5.9 (<3.5-35.0) ng/L Triglycerides 111 (<150) mg/dL Cholesterol 212 H (<200) mg/dL LDL Cholesterol, Calc 128 H (<100) mg/dL HDL Cholesterol 62 (>40) mg/dL Stool Occult Blood (NEGATIVE) 10/28/23 Range/Units 19:25 WBC (4.8-10.8) X10*3/uL RBC (4.60-5.80) X10*6/uL Hgb (14.0-18.0) g/dl Hct (42.0-52.0) % MCV (80.0-98.0) fL MCH (27.0-33.0) pg MCHC (31.0-36.0) g/dl RDW (11.0-16.0) % Plt Count (160-400) X10*3/uL MPV (9.4-12.4) fL Immature Gran % (Auto) (0.0-0.4) % Neut % (Auto) (45-73) % Lymph % (Auto) (20-40) % [place] % (Auto) (2-11) % Eos % (Auto) (0-4) % Baso % (Auto) (0-2) % Lymph # (Auto) (1.2-4.9) X10*3/uL [place] # (Auto) (0.1-1.2) X10*3/uL Eos # (Auto) (0.0-0.4) X10*3/uL Baso # (Auto) (0.0-0.2) X10*3/uL Abs Immat Gran (auto) (0.00-0.03) X10*3/uL Absolute Neuts (auto) (2.0-8.3) x10*3/uL Absolute Nucleated RBC (0.0-0.012) X10*3/uL Nucleated RBC % (auto) (0.0-0.2) /100WBC PT (11.1-13.3) SEC Whole Blood PT (11.1-13.5) sec INR (0.9-1.1) Whole Blood INR (0.9-1.1) APTT (26.0-36.8) SEC Sodium (135-145) mmol/L Potassium (3.3-5.1) mmol/L Chloride (96-108) mmol/L Carbon Dioxide (22-29) mmol/L Anion Gap (12-20) BUN (9-16) mg/dL Creatinine (0.5-1.4) mg/dL Estim Creat Clear Calc Estimated GFR POC Glucose (60-115) mg/dL Random Glucose (60-115) mg/dL Calcium (8.4-10.2) mg/dL Troponin I High Sens (<3.5-35.0) ng/L Triglycerides (<150) mg/dL Cholesterol (<200) mg/dL LDL Cholesterol, Calc (<100) mg/dL HDL Cholesterol (>40) mg/dL Stool Occult Blood NEGATIVE (NEGATIVE) Independent Interpretation I performed an independent interpretation of an: CT Scan Radiology Impression Discussion of test interpretation with radiology: I have reviewed the radiologist's reading. Radiologist Impression: FINDINGS: Head: Delayed postcontrast images reveal no abnormal intracranial mass or enhancement. There is no intracranial mass effect or midline shift. Lateral and third ventricles are normal. No hydrocephalus. Villar-white matter differentiation is preserved and there is no evidence of acute territorial infarct. The calvarium and skull base are intact. Mastoid air cells and middle ear cavities are well aerated. No active paranasal sinus disease. CT angiogram neck: The aortic arch apex is normal. Origins of the major aortic branches are widely patent. Common carotid arteries and carotid bifurcations are. No stenosis of the extracranial internal carotid arteries. The cervical segment of the dominant right vertebral artery is widely patent. Cervical segments of the vertebral arteries are widely patent. CT angiogram head: Intracranial internal carotid arteries are patent. The intradural vertebral artery segments and basilar artery are patent. Anterior, middle, and posterior cerebral artery complexes are normal. No intracranial large vessel occlusion. Other: Soft tissues of the neck including the thyroid gland are normal. Lung apices are clear. No acute osseous finding. There is multilevel degenerative spondylosis of the cervical spine with at least mild canal stenosis at the levels of C4-C5, C5-C6, and C6-C7. No worrisome lytic or blastic osseous lesion. CT/CT angio head neck stroke IMPRESSION: Unremarkable examination in that there is no evidence of acute territorial infarct. No abnormal intracranial mass or enhancement. There is no stenosis of the cervical carotid or vertebral arteries. No intracranial large vessel occlusion. There is multilevel degenerative spondylosis of the cervical spine with at least mild canal stenosis at levels of C4-C5, C5-C6, and C6-C7. If there are clinical symptoms of compressive myelopathy then a dedicated cervical spine MRI can be obtained for better anatomic characterization of the cord and canal. Independent Historian Clinical information obtained from an independent historian. History obtained from or confirmed by: Spouse Critical Care Time Critical Care Time Critical Care Time: Yes Total Critical Care Time: 75 Attestation: I have personally provided critical care time. Time includes review of lab data, radiology results, discussion with consultants, and monitoring for potential decompensation. Intervention performed as documented. Discharge Plan Discharge Clinical Impression: Brain TIA, Hypertension, Acute hypokalemia Patient Disposition: Admitted As Inpatient Prescriptions: No Action fludrocortisone 0.1 mg tablet 0.1 mg PO TID 90 Days Qty: 270 1RF midodrine 10 mg tablet 10 mg PO TID 90 Days Qty: 270 1RF Rx Instructions: do not give last dose of day after 6PM or within 4 hrs of bedtime rasagiline 1 mg tablet 1 mg PO DAILY 90 Days Qty: 90 1RF droxidopa 300 mg capsule 300 mg PO TID 30 Days Qty: 90 3RF Rx Instructions: give consistently with OR without food, upon rising, at midday, late PM/at least 3hrs before bedtime carbidopa-levodopa 25-100 mg tablet 1 tab PO TID 90 Days Qty: 270 1RF clonazepam 0.5 mg tablet 0.5 mg PO BEDTIME Rx Instructions: administer 30 minutes before bedtime. 1-2 tabs Xarelto 20 mg tablet 20 mg PO QPM Rx Instructions: must administer with evening meal (DME) compression stockings See Rx Instructions .Route .MEDSUPPLY Qty: 1 0RF Rx Instructions: As directed Print Language: Luxembourgish
[2023-10-28 17:55] LABS: Prothrombin Time Whole Bld POC 14.1 sec (11.1-13.5); ~PT, ~INR - Anti Coag Clinic 1.2 (0.9-1.1)
[2023-10-28 17:56] LABS: Glucose, Whole Blood 122 mg/dL (60-115)
[2023-10-28 18:15] LABS: MANUAL DIFF FLAG NO
[2023-10-28 18:16] LABS: Basophils Percent Auto 0.4 % (0-2); Eosinophils Absolute Auto 0.1 X10*3/uL (0.0-0.4); Eosinophils Percent Auto 1.6 % (0-4); Hematocrit 36.1 % (42.0-52.0); Hemoglobin 12.6 g/dl (14.0-18.0); Imm Gran Abs Auto 0.01 X10*3/uL (0.00-0.03); Imm Gran Pct Auto 0.2 % (0.0-0.4); Lymphocytes Absolute Auto 0.9 X10*3/uL (1.2-4.9); Lymphocytes Percent Auto 18.4 % (20-40); Mean Corpuscular HGB Conc 34.9 g/dl (31.0-36.0); Mean Corpuscular Hemoglobin 34.7 pg (27.0-33.0); Mean Corpuscular Volume 99.4 fL (80.0-98.0); Mean Platelet Volume 11.2 fL (9.4-12.4); Monocytes Absolute Auto 0.5 X10*3/uL (0.1-1.2); Monocytes Percent Auto 10.8 % (2-11); Neutrophils Absolute Auto 3.4 x10*3/uL (2.0-8.3); Neutrophils Percent Auto 68.6 % (45-73); Platelet Count 148 X10*3/uL (160-400); Red Blood Count 3.63 X10*6/uL (4.60-5.80); Red Cell Distribution Width 12.6 % (11.0-16.0); White Blood Count 4.9 X10*3/uL (4.8-10.8)
--- NOTE | 2023-10-28 18:18 | MHC.EDTECH ---
at this time assisted the pt to the bathroom across the kuhn from room 3. Pt had x2 assist to the bathroom with minimal assistance from techs, the pt stated he felt weak however had a steady gate when walking
[2023-10-28 18:23] LABS: INTERNATIONAL NORM RATIO 1.1 (0.9-1.1); Prothrombin Time 13.8 SEC (11.1-13.3)
--- NOTE | 2023-10-28 18:25 | MHC.EDTECH ---
at this time when assisting the pt out of the bathroom he stated his right hand was tingling and started to tremor, assisted the to tot the room with x2 assist, originally had steady gate but then started to lose footing and was unable to bear weight, was able to get chair behind pt and safely sat him down. Got the nurse and assisted the pt to bed w/ x3 assist. Shuffle gate noted from bed to chair. Pt safe in bed at this time with red fall risk socks put on pt. Urinal placed at bedside
--- NOTE | 2023-10-28 18:25 | PC.NURSE ---
patient ambulated one asisst to the bathroom with tech, gait steady. on way back from bathroom patient became weak, sat down in chair. this RN came over to assist, patient sitting in chair, appeared to have vagal event, eyes were open patient not responding. patient now awake and alert VSS, answering questions appropriately.
[2023-10-28 18:26] LABS: Partial Thromboplastin Time 33.5 SEC (26.0-36.8)
[2023-10-28 18:28] LABS: Stroke Lab Use COMPLETE
[2023-10-28 18:42] LABS: Troponin-I High Sensitivity 5.9 ng/L (<3.5-35.0)
[2023-10-28 18:55] LABS: Anion Gap 13 (12-20); Blood Urea Nitrogen 18 mg/dL (9-16); Calcium 9.2 mg/dL (8.4-10.2); Carbon Dioxide 31 mmol/L (22-29); Chloride 103 mmol/L (96-108); Cholesterol 212 mg/dL (<200); Creatinine Clr Calc Pharmacy 56.6; Estimated Glomerular Filt Rate 59; Glucose Random 115 mg/dL (60-115); HDL Cholesterol 62 mg/dL (>40); LDL Cholesterol Calculated 128 mg/dL (<100); Potassium 2.7 mmol/L (3.3-5.1); Sodium 144 mmol/L (135-145); Triglycerides 111 mg/dL (<150)
[2023-10-28] MEDS: Potassium Chloride Packet 20 MEQ PACKET 60 MEQ PO (19:16)
[2023-10-28] MEDS: amLODIPine Besylate 10 MG TABLET PO (19:19)
[2023-10-28 19:44] LABS: OBS Int Ctl Valid YES; OBS1 NEGATIVE (NEGATIVE)
--- NOTE | 2023-10-28 19:53 | P.HPHOSP_ITS ---
History of Present Illness Date of Service: 10/28/23 Attending physician on admission: Cinthia Uriarte Chief Complaint: Speech difficulty Ozzie Langford is a very pleasant 83 years old man with past medical history significant for atrial fibrillation on Xarelto, Parkinson's disease, orthostatic hypotension on midodrine and fludrocortisone presents to the emergency department complaining of speech difficulty that started around 4:30 pm associated with generalized weakness. He denied any headache. He does have occasional visual disturbances. has not bedside and contributed with HPI. She mentioned that around 2:00 pm he was in his usual state SF for generalized weakness. Patient denied any chest pain, shortness on breath, abdominal pain, nausea, vomiting or diarrhea. There is no fever or chills reported. Last bowel movement was yesterday and was normal. Denied bloody or black stools. He drinks alcohol very occasionally. There is no history of tobacco smoking or illicit drug use. The last time he used Xarelto was yesterday. He does not use diuretics. There is no history of strokes or diabetes mellitus. In the ED, he was found to have elevated blood pressure. Highest BP was 207/109. Last BP is 186/103. Blood workup is remarkable for hypokalemia of 2.7. CO2 is 31. Creatinine is 1.19 and BUN 18. Cholesterol is two hundred is 12 and LDH is 128. Stool for occult blood was negative. INR is 1.1. Head CT scan showed no acute intracranial bleeding. Head and neck CTA showed no intracranial large vessel occlusion. ECG showed normal sinus rhythm, heart rate 70 beats per minutes without acute ischemic changes. ED tx: Potassium 60 mEq p.o. x1, Norvasc 10 mg p.o. Review of Systems 2 Review of Systems: All 12 systems were reviewed and normal except as noted in HPI. [facility] Medical History 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 Atrial fibrillation Prostate cancer Family History Father Alzheimer disease Surgical History Status post Mohs surgery Hx of appendectomy Social History Alcohol intake: current Alcohol intake frequency: holidays/special occasions only Alcohol type: beer Patient Tobacco Use Status: Former Tobacco user Smoked in Last 30 Days: No Use of substances other than those prescribed or required for medical reasons: No Advance Directives: Yes Advance Directives Information Provided: No Advance Directives on File: No Do you have a plan to hurt others: No Plan Meds Allergies Allergy/AdvReac Type Severity Reaction Status Date / Time No Known Allergies Allergy Verified 10/28/23 17:32 Active Medications: Current Medications Acetaminophen (Acetaminophen 325 Mg Tablet) 975 mg PO Q6H PRN PRN Reason: Pain, Mild (Pain Scale 1-3), fever or headache Sodium Chloride (0.9 % Sodium Chloride Flush 3 Ml Syringe) [facility] Medications ?Medication ?Instructions ?Recorded ?Confirmed ?Last Taken ?Type clonazepam 0.5 mg tablet 0.5 mg PO BEDTIME 04/11/22 07/22/23 Unknown History rivaroxaban 20 mg tablet (Xarelto) 20 mg PO QPM 04/11/22 07/22/23 Unknown History Physical Exam 2 Vital Signs and Narrative: Vital Signs: Last Vital Signs Temp 98.3 F 10/28/23 18:10 Pulse 77 10/28/23 19:07 Resp 16 10/28/23 19:07 BP 186/103 H 10/28/23 19:19 Pulse Ox 98 10/28/23 19:07 O2 Del Method Room Air 10/28/23 19:07 BMI result Body Mass Index 25.2 Constitutional - Awake and Alert, No apparent distress. Looks weak. HEENT - PERRLA, EOMI Heart - S1S2, RRR, No murmur. Lungs - Normal lung expansion, Normal respiratory effort, No respiratory distress, CTA bilaterally Abdomen - NT / ND; +BS; No rebound or guarding Extremities - no calf tenderness bilaterally, no swelling Musculoskeletal - Normal inspection, normal ROM Skin - Warm/Dry Neurological - Alert & oriented x3, CN III-XII in tact, 5/5 strength BUE and BLE. Dysarthria. Psychological - Appropriate affect Results Labs 10/28/23 18:10 10/28/23 18:10 Labs: Laboratory Results - last 24 hr 10/28/23 10/28/23 10/28/23 17:48 17:49 18:10 MCV 99.4 H MCH 34.7 H MCHC 34.9 RDW 12.6 Plt Count 148 L MPV 11.2 Immature Gran % (Auto) 0.2 Neut % (Auto) 68.6 Lymph % (Auto) 18.4 L [place] % (Auto) 10.8 Eos % (Auto) 1.6 Baso % (Auto) 0.4 Lymph # (Auto) 0.9 L [place] # (Auto) 0.5 Eos # (Auto) 0.1 Baso # (Auto) 0.0 Abs Immat Gran (auto) 0.01 Absolute Neuts (auto) 3.4 Absolute Nucleated RBC 0.000 Nucleated RBC % (auto) 0.0 PT 13.8 H Whole Blood PT 14.1 H INR 1.1 Whole Blood INR 1.2 H APTT 33.5 Anion Gap 13 Estim Creat Clear Calc 56.6 Estimated GFR 59 POC Glucose 122 H Random Glucose 115 Calcium 9.2 Troponin I High Sens 5.9 Triglycerides 111 Cholesterol 212 H LDL Cholesterol, Calc 128 H HDL Cholesterol 62 Stool Occult Blood 10/28/23 19:25 MCV MCH MCHC RDW Plt Count MPV Immature Gran % (Auto) Neut % (Auto) Lymph % (Auto) [place] % (Auto) Eos % (Auto) Baso % (Auto) Lymph # (Auto) [place] # (Auto) Eos # (Auto) Baso # (Auto) Abs Immat Gran (auto) Absolute Neuts (auto) Absolute Nucleated RBC Nucleated RBC % (auto) PT Whole Blood PT INR Whole Blood INR APTT Anion Gap Estim Creat Clear Calc Estimated GFR POC Glucose Random Glucose Calcium Troponin I High Sens Triglycerides Cholesterol LDL Cholesterol, Calc HDL Cholesterol Stool Occult Blood NEGATIVE Imaging Radiologist's Impressions: Impressions Head CT 10/28/23 17:42 IMPRESSION: No acute intracranial pathology. This critical result was discussed with Miguelina Prater NP at 1749 hours on 10/28/2023. It was ascertained that the content and urgency of the report was understood at the time of direct communication. Head/Neck CTA 10/28/23 17:54 IMPRESSION: Unremarkable examination in that there is no evidence of acute territorial infarct. No abnormal intracranial mass or enhancement. There is no stenosis of the cervical carotid or vertebral arteries. No intracranial large vessel occlusion. There is multilevel degenerative spondylosis of the cervical spine with at least mild canal stenosis at levels of C4-C5, C5-C6, and C6-C7. If there are clinical symptoms of compressive myelopathy then a dedicated cervical spine MRI can be obtained for better anatomic characterization of the cord and canal. This critical result was discussed with Dr. Garcia at 6:07 PM on 10/28/2023 and it was ascertained that the content and urgency of the report was understood at the time of direct communication. Assessment and Plan (1) Dysarthria: Status: Acute (2) Hypokalemia: Status: Acute Plan Ozzie Langford is a 83 y/o man admitted with: * Dysarthria, rule out stroke. Admit to hospitalist service. Telemetry. Continue Xarelto. Atorvastatin 80 mg p.o. nightly 1st dose now. Neuro checks every 2 hours. Check brain MRI and echocardiogram with bubble study. Permissive hypertension. OT/PT/speech eval. Aspiration and fall precautions. Neurology consult. * Hypokalemia. Possible secondary to poor p.o. intake. Received KCl in ED. Replete as needed. Recheck potassium level at 11 pm. * Generalized weakness likely secondary to hypokalemia. PT evaluation. * Hypercholesterolemia. Start therapy with statin. * Uncontrolled hypertension. Hold midrodine and fludrocortisone. Received amlodipine in ED. Permissive hypertension. * Parkinson's disease. Continue home medications. * History of orthostatic hypotension. Currently hypertensive. Hold midodrine and fludrocortisone. * Atrial fibrillation, currently rate and rhythm controlled. Continue Xarelto. Not taking rate control agents. DVT prophylaxis: Xarelto Code status: Full Patient will need hospitalization for at least 2 midnights for stroke evaluation and treatment we will continue neurological examinations and monitoring of blood pressure. Patient also will need evaluation by neurology service and further evaluation with brain MRI and echocardiogram. Quality Stroke Does the patient have a stroke diagnosis?: Yes Reason for No Anti-thrombotic by Day Two: N/A - Med Ordered VTE Prior VTE?: No VTE Risk Level:: Medical - moderate - high VTE Device Contraindication: Treatment Not Indicated VTE Drug Contraindication: N/A - Med Ordered
[2023-10-28] MEDS: Atorvastatin Calcium 80 MG TABLET PO (20:21)
[2023-10-28] MEDS: Rivaroxaban 20 MG TABLET PO (20:21)
[2023-10-28] MEDS: Labetalol HCL 100 MG TABLET PO (20:22)
[2023-10-28 20:23] LABS: Magnesium 2.1 mg/dL (1.6-2.6)
--- NOTE | 2023-10-28 21:59 | PHA.MEDREC ---
Pharmacy Consult ? Medication Reconciliation Pharmacy has completed the medication reconciliation, spoke with pt's who handles all medications, confirmed all doses and frequencies.
[2023-10-28 23:43] LABS: Anion Gap 16 (12-20); Blood Urea Nitrogen 17 mg/dL (9-16); Calcium 8.6 mg/dL (8.4-10.2); Carbon Dioxide 28 mmol/L (22-29); Chloride 106 mmol/L (96-108); Creatinine Clr Calc Pharmacy 56.6; Estimated Glomerular Filt Rate 59; Glucose Random 138 mg/dL (60-115); Potassium 3.1 mmol/L (3.3-5.1); Sodium 147 mmol/L (135-145)
[2023-10-29] VITALS (8 sets, daily range): BP systolic 101–170; BP diastolic 61–90; PULSE 62–88; RESP 11–23; TEMP 36.3–36.8; O2SAT 92–98; BMI 25.6
[2023-10-29 05:02] LABS: MANUAL DIFF FLAG NO
[2023-10-29 05:06] LABS: Basophils Percent Auto 0.5 % (0-2); Eosinophils Absolute Auto 0.1 X10*3/uL (0.0-0.4); Eosinophils Percent Auto 2.3 % (0-4); Hematocrit 34.3 % (42.0-52.0); Hemoglobin 11.9 g/dl (14.0-18.0); Imm Gran Abs Auto 0.01 X10*3/uL (0.00-0.03); Imm Gran Pct Auto 0.3 % (0.0-0.4); Lymphocytes Percent Auto 25.9 % (20-40); Mean Corpuscular HGB Conc 34.7 g/dl (31.0-36.0); Mean Corpuscular Volume 100.9 fL (80.0-98.0); Mean Platelet Volume 10.9 fL (9.4-12.4); Monocytes Absolute Auto 0.4 X10*3/uL (0.1-1.2); Monocytes Percent Auto 10.7 % (2-11); Neutrophils Absolute Auto 2.4 x10*3/uL (2.0-8.3); Neutrophils Percent Auto 60.3 % (45-73); Platelet Count 136 X10*3/uL (160-400); White Blood Count 3.9 X10*3/uL (4.8-10.8)
[2023-10-29 05:19] LABS: Anion Gap 16 (12-20); Blood Urea Nitrogen 17 mg/dL (9-16); Calcium 9.1 mg/dL (8.4-10.2); Carbon Dioxide 28 mmol/L (22-29); Chloride 106 mmol/L (96-108); Creatinine Clr Calc Pharmacy 55.2; Estimated Glomerular Filt Rate 57; Glucose Random 139 mg/dL (60-115); Magnesium 2.1 mg/dL (1.6-2.6); Potassium 3.5 mmol/L (3.3-5.1); Sodium 146 mmol/L (135-145)
[2023-10-29 05:27] LABS: Troponin-I High Sensitivity 6.6 ng/L (<3.5-35.0)
[2023-10-29] MEDS: Dextrose 5 % and 0.45 % NaCl 1,000 ML 80 ML IVCONT (06:38)
--- NOTE | 2023-10-29 07:00 | CA_ITS ---
Transthoracic Echocardiogram Patient (Last, First, Middle): Ozzie Langford, Gender: Male Date of : 1940 Age: 83 Procedure Date: 10/29/2023 Procedure Type: Transthoracic Echocardiogram Location: ER Height: 187.96 cm Weight: 88.91 kg BSA: 2.15 m2 Heart Rate: 63 bpm BP: 123 / 69 mmHg Gas Or Petroleum Operator: YURIDIA Referring MD: Cinthia Uriarte MD Symptoms: Hx of a-fib. Speech difficulty, suspecting stroke Study Quality: Poor parasternal window ECG Rhythm: Sinus Conclusions: - The left ventricular systolic function is normal. The visually estimated ejection fraction is between 65-70%. - Possible basal inferior hypokinesis. - No obvious valvular pathology seen on this study. Findings Procedure Information Contrast agent, definity, is being given per protocol without apparent complications. Left Ventricle Normal left ventricular cavity size. The left ventricular systolic function is normal. The visually estimated ejection fraction is between 65-70%. Evidence suggests grade I (mild) diastolic dysfunction. There is mild septal asymmetric hypertrophy. Possible basal inferior hypokinesis. Right Ventricle Normal right ventricular cavity size and systolic function. Atria Both atria are normal in size. Aortic Valve The aortic valve was not well visualized. There is no aortic valve stenosis. There is no aortic valve regurgitation. Mitral Valve The mitral valve appears normal. There is no mitral valve regurgitation. There is no mitral valve stenosis. Pulmonic Valve The pulmonic valve is likely normal. Tricuspid Valve Normal tricuspid valve structure. There is no tricuspid valve regurgitation. Tricuspid regurgitation envelope is inadequate for calculation of right ventricular systolic pressure. Great Vessels The aorta was not well visualized. The aortic annulus and sinuses of valsalva are normal in size. Venous The inferior vena cava is normal in size and collapses greater than 50% with inspiration. Pericardium/Pleural There is no evidence of pericardial effusion. Prior Study Comparison No prior study available for comparison. Recommendations, Care & Conclusions No obvious valvular pathology seen on this study. Measurements 2D Linear Measurements LVOT Diam: 2.10 3.0+(-)1.3 cm 2D Systolic Function EF 4C: 71.10 >55% EF 2C: 48.10 >55% EF BiP: 62.60 >55% Mitral Valve MV Pk E: 0.50 MV PK A: 0.73 MV Decel Time: 254.00 E/A: 0.70 E'Lateral: 4.90 E'Medial: 3.92 E/E' Med: 12.70 E/E' Lat: 10.10 PHT: 75.00 MVA PHT: 2.93 Decel [place]: 1.95 Aortic Valve AoV Pk Magnus: 1.19 AoV Pk Grad: 6.00 MARIN: 2.74 LVOT LVOT Pk Magnus: 0.93 LVOT Mn Magnus: 0.60 LVOT VTI: 0.21 LVOT Pk Grad: 3.00 LVOT Mn Grad: 2.00 LVOT Diam: 2.10 LVOT Area: 3.46 Diastolic Function MV Pk E: 0.50 MV Pk A: 0.73 E/A: 0.70 E'Medial: 3.92 E/E' Med: 12.70 E' Laterial: 4.90 E/E' Lat: 10.10 Right Ventricle TAPSE (mm): 27.20 Tricuspid Valve RA Press: 3.00 Great Vessels Aorta Sinus of Valsalva: 3.90 2.0-3.5 cm Updated in Other Vendor System with Status of Final Jonathan Lopez MD electronically signed on 10/29/2023 12:05:20 PM with status of Final
[2023-10-29] MEDS: Midodrine HCl 10 MG TABLET PO ×3 (09:01→20:44)
[2023-10-29] MEDS: Carbidopa/Levodopa 25/100 TABLET 1 TAB PO ×3 (09:02→20:44)
[2023-10-29] MEDS: 0.9 % Sodium Chloride Flush 3 ML SYRINGE IVFLUSH (09:02)
--- NOTE | 2023-10-29 10:14 | PC.NURSE ---
Bladder scanned for 220ccs, per Conner Mckeon MD. Provider notified of result.
--- NOTE | 2023-10-29 11:08 | PC.NURSE ---
Completed MRI screening form with pt. and handed form to MRI Angela at bedside.
[2023-10-29 11:12] LABS: Folate 6.8 ng/mL (> or = 4.0); Vitamin B12 170 pg/mL (200-900)
--- NOTE | 2023-10-29 11:22 | HO.PM.IMPN ---
Subjective Subjective Date of Service: 10/29/23 Interval History: seen and evaluated this morning Orthostatic upon standing Speech back to baseline No overnight events reported Review of Systems Review of Systems: Yes all other systems are reviewed and are negative Physical Exam Vital Signs: Vital Signs: Last Vital Signs Temp 97.8 F 10/29/23 06:29 Pulse 62 10/29/23 06:29 Resp 11 L 10/29/23 06:29 BP 123/69 10/29/23 06:29 Pulse Ox 96 10/29/23 06:29 O2 Del Method Room Air 10/29/23 06:29 BMI result Body Mass Index 25.2 Const: Other: Constitutional : Awake, interactive, not in distress Neck : Normal inspection, Supple Cardiovascular : RRR, no JVP, no lower extremity edema Respiratory : good bilateral air entry, no crackles, wheezes or rhonchi Gastrointestinal: soft, lax, Normal bowel sounds, Non tender Skin : Warm, Dry Neurological : Alert & oriented x3, No focal deficit , speech fluent, CN 2-12 within normal Objective Data Active Medications Acetaminophen (Acetaminophen 325 Mg Tablet) 975 mg PO Q6H PRN PRN Reason: Pain, Mild (Pain Scale 1-3), fever or headache Carbidopa/Levodopa (Carbidopa/Levodopa 25/100 Tablet) 1 tab PO TID [facility] Last Admin: 10/29/23 09:02 Dose: 1 tab Documented By: NAVEEN Fludrocortisone Acetate (Fludrocortisone Acetate 0.1 Mg Tablet) 0.1 mg PO TID [facility] Last Admin: 10/29/23 10:20 Dose: Not Given Documented By: NAVEEN Non-Admin Reason: Med Not Available Dextrose/Sodium Chloride (D51/2ns) 1,000 mls @ 80 mls/hr IVCONT .[id number] [facility] Stop: 10/29/23 16:14 Last Admin: 10/29/23 06:38 Dose: 80 mls/hr Documented By: MINGO Midodrine (Midodrine Hcl 10 Mg Tablet) 10 mg PO TID [facility] Last Admin: 10/29/23 09:01 Dose: 10 mg Documented By: NAVEEN Non-Formulary Medication (Droxidopa) 300 mg PO TID [facility] Non-Formulary Medication (Rasagiline) 1 mg PO DAILY [facility] Rivaroxaban (Rivaroxaban 20 Mg Tablet) 20 mg PO DAILY@1700 [facility] Sodium Chloride (0.9 % Sodium Chloride Flush 3 Ml Syringe) 3 ml IVFLUSH QSHIFT [facility] Last Admin: 10/29/23 09:02 Dose: 3 ml Documented By: NAVEEN Labs 10/29/23 04:54 10/29/23 04:54 Labs: Laboratory Results - last 24 hr 10/28/23 10/28/23 10/28/23 17:48 17:49 18:10 MCV 99.4 H MCH 34.7 H MCHC 34.9 RDW 12.6 Plt Count 148 L MPV 11.2 Immature Gran % (Auto) 0.2 Neut % (Auto) 68.6 Lymph % (Auto) 18.4 L [place] % (Auto) 10.8 Eos % (Auto) 1.6 Baso % (Auto) 0.4 Lymph # (Auto) 0.9 L [place] # (Auto) 0.5 Eos # (Auto) 0.1 Baso # (Auto) 0.0 Abs Immat Gran (auto) 0.01 Absolute Neuts (auto) 3.4 Absolute Nucleated RBC 0.000 Nucleated RBC % (auto) 0.0 PT 13.8 H Whole Blood PT 14.1 H INR 1.1 Whole Blood INR 1.2 H APTT 33.5 Anion Gap 13 Estim Creat Clear Calc 56.6 Estimated GFR 59 POC Glucose 122 H Random Glucose 115 Calcium 9.2 Magnesium 2.1 Troponin I High Sens 5.9 Triglycerides 111 Cholesterol 212 H LDL Cholesterol, Calc 128 H HDL Cholesterol 62 Vitamin B12 Folate Stool Occult Blood 10/28/23 10/28/23 10/29/23 19:25 23:25 04:54 MCV 100.9 H MCH 35.0 H MCHC 34.7 RDW 13.0 Plt Count 136 L MPV 10.9 Immature Gran % (Auto) 0.3 Neut % (Auto) 60.3 Lymph % (Auto) 25.9 [place] % (Auto) 10.7 Eos % (Auto) 2.3 Baso % (Auto) 0.5 Lymph # (Auto) 1.0 L [place] # (Auto) 0.4 Eos # (Auto) 0.1 Baso # (Auto) 0.0 Abs Immat Gran (auto) 0.01 Absolute Neuts (auto) 2.4 Absolute Nucleated RBC 0.000 Nucleated RBC % (auto) 0.0 PT Whole Blood PT INR Whole Blood INR APTT Anion Gap 16 16 Estim Creat Clear Calc 56.6 55.2 Estimated GFR 59 57 POC Glucose Random Glucose 138 H 139 H Calcium 8.6 D 9.1 Magnesium 2.1 Troponin I High Sens 6.6 Triglycerides Cholesterol LDL Cholesterol, Calc HDL Cholesterol Vitamin B12 Folate Stool Occult Blood NEGATIVE 10/29/23 08:29 MCV MCH MCHC RDW Plt Count MPV Immature Gran % (Auto) Neut % (Auto) Lymph % (Auto) [place] % (Auto) Eos % (Auto) Baso % (Auto) Lymph # (Auto) [place] # (Auto) Eos # (Auto) Baso # (Auto) Abs Immat Gran (auto) Absolute Neuts (auto) Absolute Nucleated RBC Nucleated RBC % (auto) PT Whole Blood PT INR Whole Blood INR APTT Anion Gap Estim Creat Clear Calc Estimated GFR POC Glucose Random Glucose Calcium Magnesium Troponin I High Sens Triglycerides Cholesterol LDL Cholesterol, Calc HDL Cholesterol Vitamin B12 170 L Folate 6.8 Stool Occult Blood Assessment and Plan (1) Acute hypokalemia: Status: Acute (2) Hypertension: Status: Acute (3) Dysarthria: Status: Acute (4) Orthostatic hypotension: Status: Acute (5) Acute hypernatremia: Status: Acute Plan Ozzie Langford is a 83 y/o man admitted with: Dysarthria, acute resolved ruled out stroke with negative CT and CTA Continue Xarelto Atorvastatin 40 mg p.o. nightly Neuro checks Hold on brain MRI pending Neurology consult echocardiogram with bubble study OT/PT/speech eval. Aspiration and fall precautions Acute hypernatremia start diet, on IVF follow BMP Hypokalemia. acute secondary to poor p.o. intake Received KCl. follow BMP Orthostatic hypotension SBP drops to 60s upon standing give IVF restart midrodine and fludrocortisone - Generalized weakness likely secondary to hypokalemia. PT evaluation. - Hypercholesterolemia. Start therapy with statin. - Parkinson's disease. Continue home medications. - Atrial fibrillation, currently rate and rhythm controlled. Continue Xarelto. Not taking rate control agents. DVT prophylaxis: Xarelto Code status: Full Patient will need hospitalization for overnight for monitoring orthostatic hypotension, electrolytes correction pending Neurology evaluation to R\O stroke. Quality Stroke Does the patient have a stroke diagnosis?: Yes Reason for No Anti-thrombotic by Day Two: N/A - Med Ordered VTE Prior VTE?: No VTE Risk Level:: Medical - moderate - high VTE Device Contraindication: Treatment Not Indicated VTE Drug Contraindication: N/A - Med Ordered
--- NOTE | 2023-10-29 11:54 | PM.NEUROCN ---
History of Present Illness Data of Consult Service Date: 10/29/23 Primary Care Provider: Soo Rodney MD [facility] Reason for consult: Dysarthria and confusion 83 years old man who came to hospital with difficulty speaking. He said that he was speaking gibberish and also was confused. There was no headache and no focal weakness. According okay. Review of Systems Review of Systems: No recent cold or flu-like illness chest pain shortness of breath palpitation PMFSH Past Medical History Medical History 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 Atrial fibrillation Prostate cancer Family History Family History Father Alzheimer disease Surgical History Surgical History Status post Mohs surgery Hx of appendectomy Social History Social History Alcohol intake: current Alcohol intake frequency: holidays/special occasions only Alcohol type: beer Patient Tobacco Use Status: Former Tobacco user Smoked in Last 30 Days: No Use of substances other than those prescribed or required for medical reasons: No Advance Directives: Yes Advance Directives Information Provided: No Advance Directives on File: No Do you have a plan to hurt others: No Plan Nutrition Risks: No Nutritional Risk Meds Allergies Allergy/AdvReac Type Severity Reaction Status Date / Time No Known Allergies Allergy Verified 10/28/23 17:32 Active Medications: Current Medications Acetaminophen (Acetaminophen 325 Mg Tablet) 975 mg PO Q6H PRN PRN Reason: Pain, Mild (Pain Scale 1-3), fever or headache Carbidopa/Levodopa (Carbidopa/Levodopa 25/100 Tablet) 1 tab PO TID [facility] Last Admin: 10/29/23 09:02 Dose: 1 tab Fludrocortisone Acetate (Fludrocortisone Acetate 0.1 Mg Tablet) 0.1 mg PO TID [facility] Last Admin: 10/29/23 10:20 Dose: Not Given Dextrose/Sodium Chloride (D51/2ns) 1,000 mls @ 100 mls/hr IVCONT .Q10H [facility] Stop: 10/29/23 22:14 Last Admin: 10/29/23 06:38 Dose: 80 mls/hr Midodrine (Midodrine Hcl 10 Mg Tablet) 10 mg PO TID [facility] Last Admin: 10/29/23 09:01 Dose: 10 mg Non-Formulary Medication (Droxidopa) 300 mg PO TID [facility] Non-Formulary Medication (Rasagiline) 1 mg PO DAILY [facility] Rivaroxaban (Rivaroxaban 20 Mg Tablet) 20 mg PO DAILY@1700 [facility] Sodium Chloride (0.9 % Sodium Chloride Flush 3 Ml Syringe) 3 ml IVFLUSH QSHIFT [facility] Last Admin: 10/29/23 09:02 Dose: 3 ml Home Medications ?Medication ?Instructions ?Recorded ?Confirmed ?Last Taken ?Type clonazepam 0.5 mg tablet 0.5 mg PO BEDTIME 04/11/22 10/28/23 10/27/23 History rivaroxaban 20 mg tablet (Xarelto) 20 mg PO QPM 04/11/22 10/28/23 10/27/23 History Physical Exam Vital Signs: Vital Signs: Last Vital Signs Temp 97.8 F 10/29/23 06:29 Pulse 62 10/29/23 06:29 Resp 11 L 10/29/23 06:29 BP 123/69 10/29/23 06:29 Pulse Ox 96 10/29/23 06:29 O2 Del Method Room Air 10/29/23 06:29 BMI result Body Mass Index 25.2 Neuro: Other: He is alert and awake with normal spontaneity of speech fluency comprehension and affect. Speech is normal. Face is symmetrical. Visual bates are normal. There is no focal arm or leg weakness. Plantars are flexor. Results Labs 10/29/23 04:54 10/29/23 04:54 Labs: Short CBC 10/28/23 10/29/23 Range/Units 18:10 04:54 WBC 4.9 3.9 L (4.8-10.8) X10*3/uL Hgb 12.6 L 11.9 L (14.0-18.0) g/dl Hct 36.1 L 34.3 L (42.0-52.0) % Plt Count 148 L 136 L (160-400) X10*3/uL BMP 10/28/23 10/28/23 10/29/23 18:10 23:25 04:54 Sodium 144 147 H 146 H Potassium 2.7 L* 3.1 L 3.5 Chloride 103 106 106 Carbon Dioxide 31 H 28 28 BUN 18 H 17 H 17 H Creatinine 1.19 1.19 1.22 Calcium 9.2 8.6 D 9.1 CTA an MRI of brain were reviewed. Moderate cerebral atrophy and mild chronic microvascular ischemic disease with no obvious vascular stenosis was noted. Assessment and Plan (1) Encephalopathy: Qualifiers: Encephalopathy type: metabolic Qualified Code(s): G93.41 - Metabolic encephalopathy Status: Acute 83 years old man with features of encephalopathy that were suggestive more of either metabolic cause or epileptic cause. His serum sodium was relatively high but his symptoms were already better suggesting that the cause was probably more than that. I recommend obtaining an EEG to rule out seizure disorder. Procedures Date of Service Date of Service: 10/29/23
--- NOTE | 2023-10-29 13:09 | MHC.SL.SWA ---
Speech Pathologist Impression: Risk of Aspiration Due to: Neurological Condition Dysphasia Diet Status: Patient with sudden onset of dysarthria 10/28/23, mostly resolved/back to baseline as of 10/29/23. Liquid Consistency and Strategies for Safe Swallow: Liquid Intake Recommendation: Thin Liquid Intake Strategies: Unrestricted Solid Food Consistency: Dietary Recommendations: Regular Additional Modifications to Solid Foods: Alternate liquids/solids, take small bites and sips. Oral Medication Intake: Whole with Liquid Please contact the pharmacy regarding appropriate crushable or liquid drug formulations that are available whenever modified delivery is recommended. Compensatory Strategies and Precautions to be Taken for Safe Swallow: Sitting Upright (90 deg) Liquids from Cup Liquids from Straw Small Bites and Sips Alternate Liquids/Solids Supervision While Eating and Drinking for Safe Swallow: None Needed Foods to Avoid: Swallowing Recommended Treatments: Recommendation for Speech: Inpatient Speech Therapy Comment: Patient presents with mild generalized tremor that includes involuntary head movement. Per patient, Speech is back to his baseline, noted to be mildly imprecise in articulation likely secondary to Parkinson's. On clinical swallow evaluation, patient presents with all aspects of swallow WFL. Despite generalized tremor secondary to Parkinson's, patient is able to feed self independently. Recommend START diet of REGULAR with THIN Liquids, Pills whole with liquid. Recommend [employer] f/u - monitor x1 secondary to ?CVA, and for toleration of recommended diet. , RD notified of recommendations by keyla hamilton, RN in person. Frequency/Duration: Date Range for Service Req: Timeline to reassess: Edger Runner Clinican/Clinical Fellow: No Supervisory Statement: I have reviewed and agree with the student/clinical fellow's documentation: N/A Speech Language Pathologist: Flor Currie M.A., CCC-[employer]
[2023-10-29 15:03] LABS: Anion Gap 15 (12-20); Blood Urea Nitrogen 16 mg/dL (9-16); Calcium 8.8 mg/dL (8.4-10.2); Carbon Dioxide 30 mmol/L (22-29); Chloride 104 mmol/L (96-108); Creatinine Clr Calc Pharmacy 62.9; Estimated Glomerular Filt Rate > 60; Glucose Random 188 mg/dL (60-115); Potassium 3.2 mmol/L (3.3-5.1); Sodium 146 mmol/L (135-145)
[2023-10-29] MEDS: Fludrocortisone Acetate 0.1 MG TABLET PO ×2 (16:17→20:44)
[2023-10-29] MEDS: Potassium Chloride Packet 20 MEQ PACKET 40 MEQ PO (16:17)
[2023-10-29] MEDS: Rivaroxaban 20 MG TABLET PO (16:17)
[2023-10-29] MEDS: Dextrose 5 % 1,000 ML 100 ML IVCONT (16:22)
[2023-10-30] VITALS (10 sets, daily range): BP systolic 54–178; BP diastolic 36–90; PULSE 67–83; RESP 17–20; TEMP 35.7–36.4; O2SAT 95–98
--- NOTE | 2023-10-30 | EEG_ITS ---
FINDINGS: Waking background activity consists of a moderate voltage posterior 7 hertz theta intermixed with 6 to 7 hertz frequencies anteriorly. Photic stimulation is without activation. Hyperventilation was omitted. No focal, lateralizing, or paroxysmal discharges are seen. IMPRESSION: This is a mildly abnormal EEG due to diffuse background slowing consistent with a diffuse encephalopathic process. No focal abnormalities or paroxysmal epileptiform discharges are seen. MD JACKIE Baugh/MODL / [id number]
[2023-10-30 07:23] LABS: Hematocrit 35.8 % (42.0-52.0); Hemoglobin 12.7 g/dl (14.0-18.0); Mean Corpuscular HGB Conc 35.5 g/dl (31.0-36.0); Mean Corpuscular Hemoglobin 35.7 pg (27.0-33.0); Mean Corpuscular Volume 100.6 fL (80.0-98.0); Mean Platelet Volume 11.5 fL (9.4-12.4); Platelet Count 137 X10*3/uL (160-400); Red Blood Count 3.56 X10*6/uL (4.60-5.80); Red Cell Distribution Width 12.8 % (11.0-16.0); White Blood Count 4.3 X10*3/uL (4.8-10.8)
[2023-10-30 07:34] LABS: Anion Gap 16 (12-20); Blood Urea Nitrogen 12 mg/dL (9-16); Calcium 9.1 mg/dL (8.4-10.2); Carbon Dioxide 25 mmol/L (22-29); Chloride 106 mmol/L (96-108); Creatinine Clr Calc Pharmacy 70.9; Estimated Glomerular Filt Rate > 60; Glucose Random 130 mg/dL (60-115); Sodium 144 mmol/L (135-145)
[2023-10-30] MEDS: 0.9 % Sodium Chloride Flush 3 ML SYRINGE IVFLUSH ×2 (07:51→14:55)
--- NOTE | 2023-10-30 09:45 | HO.PM.IMPN ---
Subjective Subjective Date of Service: 10/30/23 Interval History: seen and evaluated this morning Orthostatic still positive and symptomatic upon standing Speech back to baseline No overnight events reported Review of Systems Review of Systems: Yes all other systems are reviewed and are negative Physical Exam Vital Signs: Vital Signs: Last Vital Signs Temp 97.2 F 10/30/23 07:16 Pulse 78 10/30/23 09:36 Resp 18 10/30/23 07:16 BP 72/45 L 10/30/23 09:36 Pulse Ox 96 10/30/23 07:16 O2 Del Method Room Air 10/30/23 07:16 BMI result Body Mass Index 25.6 Const: Other: Constitutional : Awake, interactive, not in distress Neck : Normal inspection, Supple Cardiovascular : RRR, no JVP, no lower extremity edema Respiratory : good bilateral air entry, no crackles, wheezes or rhonchi Gastrointestinal: soft, lax, Normal bowel sounds, Non tender Skin : Warm, Dry Neurological : Alert & oriented x3, No focal deficit , speech fluent, CN 2-12 within normal Objective Data Active Medications Acetaminophen (Acetaminophen 325 Mg Tablet) 975 mg PO Q6H PRN PRN Reason: Pain, Mild (Pain Scale 1-3), fever or headache Carbidopa/Levodopa (Carbidopa/Levodopa 25/100 Tablet) 1 tab PO TID [facility] Last Admin: 10/29/23 20:44 Dose: 1 tab Documented By: DORINDA Cyanocobalamin (Cyanocobalamin (Vitamin B-12) 1,000 Mcg Tablet) 1,000 mcg PO DAILY [facility] Fludrocortisone Acetate (Fludrocortisone Acetate 0.1 Mg Tablet) 0.1 mg PO TID [facility] Last Admin: 10/29/23 20:44 Dose: 0.1 mg Documented By: DORINDA Midodrine (Midodrine Hcl 10 Mg Tablet) 10 mg PO TID [facility] Last Admin: 10/29/23 20:44 Dose: 10 mg Documented By: DORINDA Non-Formulary Medication (Droxidopa) 300 mg PO TID [facility] Non-Formulary Medication (Rasagiline) 1 mg PO DAILY [facility] Rivaroxaban (Rivaroxaban 20 Mg Tablet) 20 mg PO DAILY@1700 [facility] Last Admin: 10/29/23 16:17 Dose: 20 mg Documented By: HO.PHANLYM Sodium Chloride (0.9 % Sodium Chloride Flush 3 Ml Syringe) 3 ml IVFLUSH QSHIFT [facility] Last Admin: 10/30/23 07:51 Dose: 3 ml Documented By: LEESA Labs 10/30/23 07:14 10/30/23 07:14 Labs: Laboratory Results - last 24 hr 10/29/23 10/29/23 10/30/23 08:29 14:12 07:14 MCV 100.6 H MCH 35.7 H MCHC 35.5 RDW 12.8 Plt Count 137 L MPV 11.5 Absolute Nucleated RBC 0.000 Nucleated RBC % (auto) 0.0 Anion Gap 15 16 Estim Creat Clear Calc 62.9 70.9 Estimated GFR > 60 > 60 Random Glucose 188 H 130 H Calcium 8.8 9.1 Vitamin B12 170 L Folate 6.8 Assessment and Plan (1) Encephalopathy: Status: Acute (2) Acute hypernatremia: Status: Acute (3) Acute hypokalemia: Status: Acute (4) Brain TIA: Status: Acute (5) Dysarthria: Status: Acute Plan Ozzie Langford is a 83 y/o man admitted with: Dysarthria, acute resolved ruled out stroke with negative CT and CTA and MRI brain Continue Xarelto Atorvastatin 40 mg p.o. nightly Neurology consult, check EEG echocardiogram showing normal EF w possible inf WMA. OT/PT/speech eval. Aspiration and fall precautions Orthostatic hypotension SBP drops upon standing with reported dizziness encourage PO protein intake Continue midrodine and fludrocortisone monitor BP Acute hypernatremia resolved w IVF follow BMP Hypokalemia. acute Received KCl. follow BMP - Generalized weakness likely secondary to hypokalemia. PT evaluation. - Hypercholesterolemia. Start therapy with statin. - Parkinson's disease. Continue home medications. - Atrial fibrillation, currently rate and rhythm controlled. Continue Xarelto. Not taking rate control agents. DVT prophylaxis: Xarelto Code status: Full Patient will need hospitalization for overnight for monitoring orthostatic hypotension, electrolytes correction pending EEG and resolution of orthostatic symptoms Quality Stroke Does the patient have a stroke diagnosis?: Yes Reason for No Anti-thrombotic by Day Two: N/A - Med Ordered VTE Prior VTE?: No VTE Risk Level:: Medical - moderate - high VTE Device Contraindication: Treatment Not Indicated VTE Drug Contraindication: N/A - Med Ordered
[2023-10-30] MEDS: Carbidopa/Levodopa 25/100 TABLET 1 TAB PO ×2 (09:50→14:54)
[2023-10-30] MEDS: Fludrocortisone Acetate 0.1 MG TABLET PO ×2 (09:50→14:54)
[2023-10-30] MEDS: Midodrine HCl 10 MG TABLET PO ×2 (09:50→14:54)
[2023-10-30] MEDS: Potassium Chloride Packet 20 MEQ PACKET 40 MEQ PO (10:25)
[2023-10-30] MEDS: Cyanocobalamin (Vitamin B-12) 1,000 MCG/ML VIAL 1000 MCG IM (10:25)
--- NOTE | 2023-10-30 10:43 | MHC.CM.PN ---
IMM 10/30/23, Pt lives with his , no home health services, for DME, he has a walker. to transport home at DC. PCP confirmed: Soo Rodney. HCP form completed and added to chart, naming Dimitrios. DCP: home with services. CM to follow and assist with DC plan.
[2023-10-30] MEDS: Potassium Chloride/H20 10 MEQ/100 ML PIGGYBACK 100 MEQ IV (11:51)
--- NOTE | 2023-10-30 12:41 | P.DS_ITS ---
DS: Providers Provider Date of Service: 10/30/23 Date of admission: 10/28/23 19:46 Primary care physician: Soo Rodney MD Consults: 10/28/23 19:49 Consult to Neurology Routine Consulting Provider: Leonard Nolasco Reason for consultation: hx of a-fib, speech difficulty Has provider been notified: No DS: Diagnosis Discharge Diagnosis (1) Encephalopathy: Status: Acute (2) Acute hypernatremia: Status: Acute (3) Acute hypokalemia: Status: Acute (4) Brain TIA: Status: Acute (5) Dysarthria: Status: Acute DS: Summary Hospital Course Hospital Course: Admission note HPI Ozzie Langford is a very pleasant 83 years old man with past medical history significant for atrial fibrillation on Xarelto, Parkinson's disease, orthostatic hypotension on midodrine and fludrocortisone [facility] of speech difficulty that started around 4:30 pm associated with generalized weakness. He denied any headache. He does have occasional visual disturbances. has not bedside and contributed with HPI. She mentioned that around 2:00 pm he was in his usual state SF for generalized weakness. Patient denied any chest pain, shortness on breath, abdominal pain, nausea, vomiting or diarrhea. There is no fever or chills reported. Last bowel movement was yesterday and was normal. Denied bloody or black stools. He drinks alcohol very occasionally. There is no history of tobacco smoking or illicit drug use. The last time he used Xarelto was yesterday. He does not use diuretics. There is no history of strokes or diabetes mellitus. In the ED, he was found to have elevated blood pressure. Highest BP was 207/109. Last BP is 186/103. Blood workup is remarkable for hypokalemia of 2.7. CO2 is 31. Creatinine is 1.19 and BUN 18. Cholesterol is two hundred is 12 and LDH is 128. Stool for occult blood was negative. INR is 1.1. Head CT scan showed no acute intracranial bleeding. Head and neck CTA showed no intracranial large vessel occlusion. ECG showed normal sinus rhythm, heart rate 70 beats per minutes without acute ischemic changes. ED tx: Potassium 60 mEq p.o. x1, Norvasc 10 mg p.o. Hospital course - Dysarthria, acute on presentation, resolved shortly after admission back to baseline. ruled out acute stroke with negative CT and CTA and MRI brain. He is on Xarelto and was started on Atorvastatin as he was evaluated by NEurology who recommended EEG. Echocardiogram showing normal EF. OT/PT evaluated the patient and recommended SNF placement but he and his prefer going back home with home PT. evaluated by speech therapy team who recommended upgrading his diet to regular as no problem noted in swallowing. EEG was done and came back negative for any seizure activity. - Orthostatic hypotension. SBP drops upon standing with reported dizziness that improved with IV fluids and home medications of midrodine and fludrocortisone. His BP continues to drop upon standing but less than before with no reported dizziness as he was able to participate with PT session. To continue same medicaitons as outpatient and follow with Neurology for Parkinson disease medications follow up. - Acute hypernatremia likely from dehydration. resolved w IVF - Acute Hypokalemia. Resolved as he received KCl supplement, - Generalized weakness likely secondary to hypokalemia. PT evaluation recommended Short term rehab but he prefers going back home with PT. - Hypercholesterolemia. Started therapy with statin as LDL was elevated. Discharge plan Start Atorvastatin Wear compressing stockings Take Midodrine and Fludricortisone as prescribed Use walker for safe transportation Physical therapy at home Follow with neurology as outpatient Time Attestation Discharge Coordination Time (in mins): 36 Quality: Safe Use of Opioids Does Pt have an Active Cancer Diagnosis on the Problem List?: No Quality: Stroke Does the patient have a stroke diagnosis?: No Physical Exam Vital Signs: Vital Signs: Last Vital Signs Temp 97.6 F 10/30/23 11:52 Pulse 75 10/30/23 11:52 Resp 17 10/30/23 11:52 BP 128/79 10/30/23 11:52 Pulse Ox 95 10/30/23 11:52 O2 Del Method Room Air 10/30/23 11:52 BMI result Body Mass Index 25.6 Const: Other: Constitutional : Awake, interactive, not in distress Neck : Normal inspection, Supple Cardiovascular : RRR, no JVP, no lower extremity edema Respiratory : good bilateral air entry, no crackles, wheezes or rhonchi Gastrointestinal: soft, lax, Normal bowel sounds, Non tender Skin : Warm, Dry Neurological : Alert & oriented x3, No focal deficit , speech fluent, CN 2-12 within normal DS: Data Data Completed and Pending Labs on day of discharge: Laboratory Results - last 24 hr 10/29/23 10/30/23 14:12 07:14 WBC 4.3 L RBC 3.56 L Hgb 12.7 L Hct 35.8 L MCV 100.6 H MCH 35.7 H MCHC 35.5 RDW 12.8 Plt Count 137 L MPV 11.5 Absolute Nucleated RBC 0.000 Nucleated RBC % (auto) 0.0 Sodium 146 H 144 Potassium 3.2 L 3.0 L Chloride 104 106 Carbon Dioxide 30 H 25 Anion Gap 15 16 BUN 16 12 Creatinine 1.07 0.95 Estim Creat Clear Calc 62.9 70.9 Estimated GFR > 60 > 60 Random Glucose 188 H 130 H Calcium 8.8 9.1 Imaging MRI - head: Radiologist's impression: ITS Impressions Head CT 10/28/23 17:42 IMPRESSION: No acute intracranial pathology. This critical result was discussed with Miguelina Prater FX ARTIST at 1749 hours on 10/28/2023. It was ascertained that the content and urgency of the report was understood at the time of direct communication. Head/Neck CTA 10/28/23 17:54 IMPRESSION: Unremarkable examination in that there is no evidence of acute territorial infarct. No abnormal intracranial mass or enhancement. There is no stenosis of the cervical carotid or vertebral arteries. No intracranial large vessel occlusion. There is multilevel degenerative spondylosis of the cervical spine with at least mild canal stenosis at levels of C4-C5, C5-C6, and C6-C7. If there are clinical symptoms of compressive myelopathy then a dedicated cervical spine MRI can be obtained for better anatomic characterization of the cord and canal. This critical result was discussed with Dr. Garcia at 6:07 PM on 10/28/2023 and it was ascertained that the content and urgency of the report was understood at the time of direct communication. Brain MRI 10/29/23 11:50 IMPRESSION: * No acute intracranial findings. No acute infarcts. * There is global volume loss and there is moderate chronic microangiopathy. * There is an indeterminate 2 cm marrow replacing lesion within hyperostosis frontalis interna in the right frontal calvarium on image 21 series 7 that can be further assessed with bone scan. Discharge Plan Discharge Anticipated Discharge Date/Time: 10/30/23 12:35 Patient Disposition: Home Health Service Discharge Diagnosis: Orthostatic hypotension Dysarthria Referrals: [facility] [Outside] - 1 Week Soo Rodney MD [Primary Care Provider] - 1 Week Discharge Medications: New cyanocobalamin (vitamin B-12) [Vitamin B-12] 1,000 mcg Tablet 1,000 mcg PO DAILY Qty: 90 0RF atorvastatin 20 mg tablet 20 mg PO BEDTIME Qty: 90 0RF Continued fludrocortisone 0.1 mg tablet 0.1 mg PO TID 90 Days Qty: 270 1RF midodrine 10 mg tablet 10 mg PO TID 90 Days Qty: 270 1RF Rx Instructions: do not give last dose of day after 6PM or within 4 hrs of bedtime rasagiline 1 mg tablet 1 mg PO DAILY 90 Days Qty: 90 1RF droxidopa 300 mg capsule 300 mg PO TID 30 Days Qty: 90 3RF Rx Instructions: give consistently with OR without food, upon rising, at midday, late PM/at least 3hrs before bedtime carbidopa-levodopa 25-100 mg tablet 1 tab PO TID 90 Days Qty: 270 1RF (DME) compression stockings See Rx Instructions .Route .MEDSUPPLY Qty: 1 2RF Rx Instructions: As directed clonazepam 0.5 mg tablet 0.5 mg PO BEDTIME Rx Instructions: administer 30 minutes before bedtime. 1-2 tabs Xarelto 20 mg tablet 20 mg PO QPM Rx Instructions: must administer with evening meal Discharge Orders: Discharge Order (Routine); Ordered 10/30/23 Ordered By: Manfred Mckeon Diet: Advance to usual diet Activity on Discharge: As tolerated Stand Alone Forms: Patient Portal Discharge page Print Language: Icelandic Care Plan Goals: Start Atorvastatin for elevated Cholestrol Wear compressing stockings Take Midodrine and Fludricortisone as prescribed Drink plenty of fluids and stay well hydrated Use walker for safe transportation Physical therapy at home Follow with neurology as outpatient Health Concerns: Read below Plan of Treatment: Read below Assessment: Read below Patient Instructions: Atorvastatin (By mouth), Vitamin B-12 (By mouth)
--- NOTE | 2023-10-30 13:42 | PC.NURSE ---
Orthostatic BP done as per DR Mckeon instructions, positibe ortho BP , pt became very dizzy and stated that he feels he will collapse . Pt back to bed to supine position , alert and oriented ,converses, DR Mckeon notified
--- NOTE | 2023-10-30 13:45 | W.MHC.F2F ---
Service Date Service Date: 10/30/23 Encounter Date of encounter: 10/30/23 Reasons for Services Signs and symptoms assessed: Postural hypotension physical deconditioning Reason for correction: teach disease management and other (postural hypotension; chronic. prevent falls) Reason for physical therapy: home safety and mobility and therapeutic exercises Homebound: Leaving the home is medically contraindicated at this time without the asist of a device and/or another person due th the listed conditions above and below. Reason homebound: unsteady gait / fall risk Certification: Based on the above findings, I certify that this patient is confined to the home and needs intermittent correction care, physical therapy and/or speech therapy, or continues to need occupational therapy. The patient is under my care, and I have initiated the establishment of the plan of care. The patient will be followed by a physician who will periodically review the plan of care. Time Spent With Patient Time: Total time managing care of this patient today ____ minutes.
[2023-10-30] MEDS: 0.9 % Sodium Chloride 1,000 ML 999 ML IV (13:51)
--- NOTE | 2023-10-30 13:53 | MHC.CM.PN ---
Pt has been medically cleared for DC, he will go home via family transport and [facility]
[2023-10-30 13:55] LABS: Anion Gap 14 (12-20); Blood Urea Nitrogen 13 mg/dL (9-16); Calcium 8.6 mg/dL (8.4-10.2); Carbon Dioxide 29 mmol/L (22-29); Chloride 106 mmol/L (96-108); Estimated Glomerular Filt Rate > 60; Glucose Random 134 mg/dL (60-115); Potassium 3.8 mmol/L (3.3-5.1); Sodium 145 mmol/L (135-145)
[2023-10-30] MEDS: Cyanocobalamin (Vitamin B-12) 1,000 MCG TABLET 1000 MCG PO (14:54)
--- NOTE | 2023-10-30 16:44 | PC.NURSE ---
pt received IV fluids bolus for positive orthostatic BP wit good effect, Pt ambulated to the bathroom few time this afternoon and he reported only slight dizziess , all safety mesures were explained to the pt and his
== END 2023-10-30 17:14 | disposition home health service (06) | DRG 69 ==
LOC: HO.ED 20:22 → HO.EDOVER 21:29 → HO.IMC 10-29 13:39
PROVIDERS: Registered Nurse Emergency; Admitting Provider Internal Medicine; Emergency Provider Emergency Medicine; PCP Family Medicine; Visit Provider Student in an Organized Health Care Education/Training Program
DX: G45.9 Transient cerebral ischemic attack, unspecified (principal); G93.41 Metabolic encephalopathy; E87.0 Hyperosmolality and hypernatremia; I10 Essential (primary) hypertension; E86.0 Dehydration; E87.6 Hypokalemia; R47.1 Dysarthria and anarthria; G20.A1 Parkinson's disease without dyskinesia, without mention of fluctuations; I48.91 Unspecified atrial fibrillation; I95.1 Orthostatic hypotension; E78.00 Pure hypercholesterolemia, unspecified; Z87.891 Personal history of nicotine dependence; Z79.01 Long term (current) use of anticoagulants; Z79.899 Other long term (current) drug therapy
CPT/HCPCS: 36415; 70450; 70496; 70498; 70551; 80048; 80061; 82272; 82607; 82746; 82947; 83735; 84484; 85025; 85027; 85610; 85730; 92610; 93005; 93306; 95816; 97162; 97167; 97530; 99285; J3420; J3480; Q9957

== ENCOUNTER → 2023-10-28 17:31 | Outpatient (BNV) | payer MEDICARE, SELFPAY | PROVIDERS: Admitting Provider Internal Medicine; Emergency Provider Emergency Medicine; PCP Family Medicine; Visit Provider Internal Medicine | DX: R94.31 Abnormal electrocardiogram [ECG] [EKG] (principal) | CPT/HCPCS: 93010 ==

== ENCOUNTER → 2023-10-28 18:26 | Outpatient (BNV) | payer MEDICARE, SELFPAY | PROVIDERS: Emergency Provider Emergency Medicine; PCP Family Medicine; Visit Provider Internal Medicine | DX: G93.41 Metabolic encephalopathy (principal); G45.9 Transient cerebral ischemic attack, unspecified; R47.1 Dysarthria and anarthria; E87.6 Hypokalemia; E87.0 Hyperosmolality and hypernatremia | CPT/HCPCS: 99223; 99233; 99239; G0180 ==

== ENCOUNTER 2023-10-28 19:46 | Outpatient (BNV) | payer MEDICARE, SELFPAY | END 2023-10-29 07:00 | PROVIDERS: Admitting Provider Internal Medicine; Emergency Provider Emergency Medicine; PCP Family Medicine; Visit Provider Internal Medicine | DX: I42.2 Other hypertrophic cardiomyopathy (principal) | CPT/HCPCS: 93306 ==

== ENCOUNTER → 2023-10-28 19:46 | Outpatient (BNV) | payer MEDICARE, SELFPAY | PROVIDERS: Admitting Provider Internal Medicine; Emergency Provider Emergency Medicine; PCP Family Medicine; Visit Provider Psychiatry & Neurology Neurology | DX: G93.41 Metabolic encephalopathy (principal) | CPT/HCPCS: 99222 ==

== ENCOUNTER 2023-12-02 11:22 | Outpatient (AMB) | payer MEDICARE, BC, SELFPAY ==
--- NOTE | 2023-12-02 11:26 | A.OFFVIS_ITS ---
Vital Signs 12/02/23 11:27 Height 6 ft 2 in Weight 194 lb BMI 24.9 BP 100/66 Blood Pressure Location Rt brachial Position Sitting Respiration 16 Pulse 71 Pulse Source Pulse Oximeter Pulse Oximetry (%) 95 Oxygen Delivery Method Room Air Intake Visit Reasons: 4 Month F/U Intake Note: Pt presents to the office for a 4 month follow up for acalculia. Community Relations Liaison Required: No Allergies No Known Allergies Allergy (Verified 12/02/23 11:27) Medication List - Last Reconciled 12/02/23 by Delmis Davalos MD atorvastatin 20 mg PO BEDTIME carbidopa-levodopa 25-100 mg 1 tab PO TID 90 days clonazepam 0.5 mg PO BEDTIME [compression stockings As directed] cyanocobalamin (vitamin B-12) (Vitamin B-12) 1,000 mcg PO DAILY droxidopa 300 mg PO TID 30 days fludrocortisone 0.1 mg PO TID 90 days midodrine 10 mg PO TID 90 days [potassium supplement PO] rasagiline 1 mg PO DAILY 90 days rivaroxaban (Xarelto) 20 mg PO QPM HPI Comments Details: 83-yr-old male presents for f/u visit.He still has frequent falls . It is usually related to sudden weakness and he collapses. He has 1 fall per week. He feels lightheaded before the falls. it is worse in later afternoon. He also has some episodes of passing out. Frequent episodes of orthostatic lightheadedness, almost to the point of blacking out. Occurs more so in the evening. This can occur immediately upon standing, but more often occurs after taking several steps or even longer. In the home, he is able to mitigate by having access to chairs/seats. His BP has been running a bit higher than before, the SBP is now usually in the 110s. He is drinking more fluids- now drinking a full glass of water w/ his meds. His Droxidopa was increased to 300mg tid since the last visit. Pt's current PD medication regimen: CD-LD 25-100mg 1 tab tid, Rasagiline 1mg qd. Droxidopa 300mg tid (8am, 12pm, 4:30pm), fludrocortisone 0.1mg qam, midodrine 10mg tid (8am and 12pm) ADL's: Ind. Usually showers when is home. Swallowing: No issues Drooling: At night- at times Orthostatic lightheadedness: as above Constipation: None Freezing: None Stiffness: None Tremor: Not noticing much tremor Hallucinations: None Memory: Still some Short term lapses and more difficulty w/ calculations. Still playing card games- and doing well. Sleep: Still waking up at night. Exercise: Not much exercise. Plans to try swimming in the small pool at the 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 Atrial fibrillation Prostate cancer Surgical History Status post Mohs surgery Hx of appendectomy Family History Father Alzheimer disease Social History Household Members: Spouse Housing: House Do you presently have visiting nurse or other home services: No Alcohol intake: current Alcohol intake frequency: holidays/special occasions on ly Alcohol type: beer Patient Tobacco Use Status: Former Tobacco user Advance Directives Date on File: 10/29/23 service: No Physical Exam Vital Signs: Last Vital Signs Pulse 71 12/02/23 11:27 Resp 16 12/02/23 11:27 BP 100/66 12/02/23 11:27 Pulse Ox 95 12/02/23 11:27 Oxygen Delivery Method Room Air 12/02/23 11:27 BMI result Body Mass Index 24.9 Const General: cooperative and no acute distress Resp Effort & Inspection: normal respiratory effort and able to speak in complete sentences Neuro Other: General: A&O x's 3 Expression: Decreased expression and blink Voice: Soft Tremor: None Tone: Mild RUE tone Dyskinesia: None today FFM: Bradykinesia- more so on right Foot taps: Mild bradykinesia Gait: Slow to stand, decreased arm swing- no chorea in hands, short steps, steady. 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 Continue Clonazepam 0.5mg qhs- we can manage this if needed. Midodrine from 10mg tid Fludrocortisone 0.1mg am - tid Increase Droxidopa 400mg tid- hold for BP 160/100 Continue increased fluids w/ electrolyte supplement such as liquid IV, gatorade/powerade. Compression stockings, increase salt , take time when he changes position from sitting to standing position will refer to Autonomic clinic at [facility] [place]- he has Tilt Table testing ? Orders: Referrals Neurology Referral G20.A1 - Parkinson's disease without dyskinesia, without mention of fluctuations, I95.1 - Orthostatic hypotension Medications: New droxidopa for total dose of 400mg tid -give consistently with OR without food, upon rising, at midday, late PM/at least 3hrs before bedtime 100 mg PO TID 90 caps 6RF Refilled droxidopa give consistently with OR without food, upon rising, at midday, late PM/at least 3hrs before bedtime 300 mg PO TID 30 days 90 caps 6RF Coding Level of Care Code Est Pt Level 4 (42642) Complex EM visit Add On G2211 Diagnoses Parkinson's disease without dyskinesia G20.A1 Orthostatic hypotension I95.1 REM sleep behavior disorder G47.52 Acalculia R48.8
[2023-12-02 11:27] VITALS: BP 100/66; PULSE 71; RESP 16; O2SAT 95; BMI 24.9
== END 2023-12-02 12:15 | disposition home or self-care (01) ==
PROVIDERS: PCP Family Medicine; Visit Provider Psychiatry & Neurology Neurology
DX: G20.A1 Parkinson's disease without dyskinesia, without mention of fluctuations (principal); I95.1 Orthostatic hypotension; G47.52 REM sleep behavior disorder; R48.8 Other symbolic dysfunctions
CPT/HCPCS: 99214; G2211

== ENCOUNTER → 2023-12-02 11:22 | Outpatient (BNVA) | payer MEDICARE, BC, SELFPAY | PROVIDERS: PCP Family Medicine; Visit Provider Psychiatry & Neurology Neurology | DX: G20.A1 Parkinson's disease without dyskinesia, without mention of fluctuations (principal); G47.52 REM sleep behavior disorder; I95.1 Orthostatic hypotension; R48.8 Other symbolic dysfunctions | CPT/HCPCS: 99212 ==

== ENCOUNTER 2024-01-15 16:22 | Emergency (ER) | payer MEDICARE, BC, SELFPAY ==
--- NOTE | ~2024-01-15 | CT_ITS ---
EXAMINATION: CT CHEST, ABDOMEN, AND PELVIS WITH IV CONTRAST CLINICAL INFORMATION: Fall, blunt trauma COMPARISON: None TECHNIQUE: Helical computed tomography was performed from the inferior neck through the pubic symphysis after administration of 85 mL of Omnipaque 350 intravenous contrast. Multiplanar reconstructions are available for interpretation. All CT exams at this location are performed using dose optimization techniques as appropriate to a performed exam including at least one of the following: * Automated exposure control * Adjustment of the mA and/or kV according to patient size (this includes techniques or standardized protocols for targeted exams where dose is matched to indication / reason for exam; i/e/ extremities or head) * Use of iterative reconstructive technique Total DLP is 872 mGy*cm. FINDINGS: Lungs: The lung parenchyma is normal bilaterally. Bibasilar atelectasis Airways: The central airways are patent. The peripheral airways are normal. Pleura: The pleural surfaces are normal bilaterally. There is no pleural effusion. There is no pneumothorax. Mediastinum/Jennifer: There are no pathologically enlarged mediastinal or hilar lymph nodes. Cardiovascular: The heart is globally normal in size. The thoracic aorta is normal in course and caliber. The main pulmonary artery is normal in caliber. There is no pericardial effusion or pericardial thickening. Liver: Normal in size and attenuation. Multiple subcentimeter hypodensities throughout the liver which are too small to reliably characterize but likely represent simple cysts Gallbladder and bile ducts: The gallbladder is normal. No intrahepatic or extrahepatic biliary ductal dilatation. Spleen: Normal in size and attenuation. Pancreas: Unremarkable. Adrenal glands: Unremarkable. Right kidney: The right kidney is normal. There is no hydronephrosis or hydroureter. Left kidney: The left kidney is normal. There is no hydronephrosis or hydroureter. Lymph nodes: There is no lymphadenopathy in the abdomen or pelvis. Gastrointestinal tract: Large hiatal hernia extending into the chest. Small bowel loops are unremarkable. Moderate amount of stool seen throughout the colon. No bowel wall thickening Urinary bladder: The bladder is unremarkable. Pelvic organs: The prostate is unremarkable. Vasculature: Congenital left-sided IVC. Left-sided IVC empties into the left renal vein. The suprarenal IVC appears congenitally atretic. There is nonspecific inflammatory stranding surrounding the aorta and IVC. Aorta is normal in caliber with scattered atherosclerotic plaque. Contour of the aorta is irregular. Cannot exclude ulcerative plaque. IVC is unopacified. Cannot exclude underlying thrombosis. There are multiple tiny retroperitoneal lymph nodes. Additional findings: There is no intraperitoneal free air or fluid. Soft tissues: Unremarkable. Osseous structures: Old healed left posterior rib fractures. No acute fracture seen. Degenerative disc disease is seen in the lumbar spine. Normal vertebral body height and alignment. No acute fractures CT/CT abdomen pelvis w IV con IMPRESSION: 1. No acute traumatic injury seen in the chest, abdomen or pelvis. 2. Congenital left-sided IVC. There is nonspecific inflammatory stranding surrounding the aorta and IVC. Aorta is normal in caliber with scattered atherosclerotic plaque. Contour of the aorta is irregular. Cannot exclude ulcerative plaque. IVC is unopacified. Cannot exclude underlying thrombosis. Cannot exclude a subtle vascular injury versus inflammatory process. 3. Recommend further evaluation with dedicated CTA/CTV. 4. Large hiatal hernia. 5. Multiple subcentimeter hypodensities throughout the liver which are too small to reliably characterize but likely represent simple cysts. Electronically signed by: Hayes Rico MD 01/15/2024 07:44 PM EDT
--- NOTE | ~2024-01-15 | CT_ITS ---
EXAMINATION: CT HEAD WITHOUT CONTRAST CT FACIAL BONES WITHOUT CONTRAST CT CERVICAL SPINE WITHOUT CONTRAST CLINICAL INFORMATION: Fall, pain, trauma COMPARISON: None available. TECHNIQUE: Imaging was performed from the skull base to vertex without intravenous administration of contrast. In addition, helical noncontrast CT imaging was acquired through the cervical spine and facial bones and source images were reviewed along with axial reconstructions and sagittal and coronal MPRs. This CT examination was performed using dose optimization techniques as appropriate, variously including the following: *Automated exposure control *Adjustment of mA and/or kV according to patient size (this includes techniques or standardized protocols for targeted exams where dose is matched to indication/reason for exam; i.e. extremities or head) *Use of iterative reconstruction technique Total exam dose-length product 2724 mGy-cm FINDINGS: HEAD: No intracranial mass, hemorrhage, or midline shift is visualized. The ventricles and sulci are age-appropriate. No extra-axial collections are identified. The paranasal sinuses are well aerated. CERVICAL SPINE: There is no evidence of acute cervical spine fracture. There is degenerative anterolisthesis at the T2-C3 and retrolisthesis at C3-C4, C4 4-C5, and C5-C6. There is multilevel loss of intervertebral disc space with endplate degenerative changes. There is multilevel mild spinal canal stenosis and foraminal stenosis. No pre- or paravertebral soft tissue abnormality is identified. Limited assessment of the lung apices is unremarkable. FACE: There are acute minimally displaced fractures of the bilateral nasal bones with overlying soft tissue swelling. The intraconal and extraconal fat of both orbits is preserved. The globes, optic nerve sheaths, extraocular muscles, and lacrimal glands demonstrate a symmetric and unremarkable appearance. Mild mucosal thickening of the right ethmoid and maxillary sinuses. There is hemorrhage and fluid within the left ethmoid air cells. There is a small right maxillary sinus mucocele. The zygomatic arches appear intact without evidence of fracture or sutural diastasis. The middle ear cavities and imaged mastoid air cells are clear. There is no evidence of acute fracture of the midface or mandible. The temporomandibular joints maintain normal articulation. CT/CT cervical spine wo IV con IMPRESSION: 1. No acute intracranial pathology. 2. No CT evidence of acute cervical spine fracture or traumatic subluxation. 3. Acute minimally displaced fractures of the bilateral nasal bones with overlying soft tissue swelling. Electronically signed by: Joanna Anders MD 01/15/2024 07:26 PM EDT RP
--- NOTE | 2024-01-15 16:28 | ED_ITS ---
<Statement entered by Xavier Medrano MD - 01/16/24 01:56> I saw this patient with the physician assistant health educator. The patient is on rivaroxaban. The the patient had fallen on his face. A CT of the face showed acute minimally displaced fractures of the bilateral nasal bones. He had some nasal bleeding in the emergency department that was addressed with oxymetazoline nasal spray and a nasal clamp. This seemed to control his bleeding. At the time of discharge he seemed to be somewhat orthostatically hypotensive. According to his this is very chronic. She feels that the patient is at his baseline and is comfortable taking him home. HPI - General Adult General Chief complaint: Fall Stated complaint: FALL WITH HEADSTRIKE +BLOOD THINNERS Time Seen by Provider: 01/15/24 16:27 Source: patient, family (patient's ) and EMS Mode of arrival: EMS Limitations: no limitations History of Present Illness ED Provider: Desirae Montes PA-C HPI narrative: Patient is an 83 year old assigned male at with a history of Parkinson's disease and atrial fib for which he is on Xarelto presenting to the emergency department today after a trip and fall landing on his nose / chest. Patient denies any dizziness, lightheadedness, abdominal pain, nausea, vomiting, fever, chills, blurry vision, double vision, loss of vision, chest pain, difficulty breathing, shortness of breath, back pain, night sweats, pain with urination, increased urinary frequency, increased urinary urgency, blood in his urine or stool, syncope or a near syncopal episode, bowel incontinence, bladder incontinence, or any other complaints at this time. Onset (ago): hour(s) Location: face Radiation: non-radiation Quality: aching Pain Consistency: constant Relieving factors: none Exacerbating factors: none Associated symptoms: chest pain Treatments prior to arrival: other (C-collar) Related Data Home Medications ?Medication ?Instructions ?Recorded ?Confirmed clonazepam 0.5 mg tablet 0.5 mg PO BEDTIME 04/11/22 12/02/23 rivaroxaban 20 mg tablet (Xarelto) 20 mg PO QPM 04/11/22 12/02/23 potassium supplement PO 12/02/23 12/02/23 Previous Rx's ?Medication ?Instructions ?Recorded fludrocortisone 0.1 mg tablet 0.1 mg PO TID 90 days #270 tabs 08/10/23 midodrine 10 mg tablet 10 mg PO TID 90 days #270 tabs 08/10/23 carbidopa 25 mg-levodopa 100 mg 1 tab PO TID 90 days #270 tabs 10/20/23 tablet atorvastatin 20 mg tablet 20 mg PO BEDTIME #90 tabs 10/30/23 compression stockings #1 ea 10/30/23 cyanocobalamin (vitamin B-12) 1,000 mcg PO DAILY #90 tabs 10/30/23 1,000 mcg tablet (Vitamin B-12) rasagiline 1 mg tablet 1 mg PO DAILY 90 days #90 tabs 11/20/23 droxidopa 100 mg capsule 100 mg PO TID #90 caps 12/02/23 droxidopa 300 mg capsule 300 mg PO TID 30 days #90 caps 12/02/23 amoxicillin 875 mg-potassium 1 tab PO BID 10 days #20 tabs 01/15/24 clavulanate 125 mg tablet Allergies Allergy/AdvReac Type Severity Reaction Status Date / Time No Known Allergies Allergy Verified 01/15/24 16:33 Review of Systems 2 Constitutional: Constitutional: Reports no additional constitutional complaints, Denies chills, Denies fever(s) and Denies night sweats Eyes: Eyes: Reports no additional eye complaints, Denies blurry vision, Denies change in vision, Denies diplopia, Denies eye discharge, Denies loss of vision and Denies eye pain ENT: Denies dizziness Cardiovascular: Cardiovascular: Reports chest pain, Denies syncope, Denies leg edema, Denies lightheadedness, Denies Loss of Consciousness and Denies dyspnea Respiratory: Respiratory: Reports no additional respiratory complaints and Denies dyspnea Gastrointestinal: Gastrointestinal: Reports no additional gastrointestinal complaints, Denies abdominal pain, Denies melena, Denies hematochezia, Denies change in bowel habits and Denies change in stool character Genitourinary: Genitourinary: Reports no additional male genitourinary complaints, Denies hematuria, Denies oliguria, Denies difficulty urinating, Denies dysuria, Denies urinary frequency, Denies urinary hesitancy, Denies urinary incontinence and Denies urinary urgency Musculoskeletal: Musculoskeletal: Reports as per HPI, Denies numbness and Denies tingling Integumentary/Breasts: Skin/Breast: Reports as per HPI Neurologic: Denies dizziness, Denies syncope, Denies loss of vision, Denies numbness and Denies tingling Psychiatric: Psychiatric: Reports no additional psychiatric complaints Endocrine: Endocrine: Reports no additional endocrine complaints Hematologic/Lymphatic: Hematologic/Lymphatic: Reports no additional hematologic/lymphatic complaints Allergic/Immunologic: Allergic/Immunologic: Reports no additional allergic/immunologic complaints PMFSH Past Medical History Medical History (Updated 01/16/24 @ 00:01 by Fercho Mcconnell) Orthostatic hypotension Hypertension Orthostatic hypotension 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 Atrial fibrillation Prostate cancer Surgical History Status post Mohs surgery Hx of appendectomy Family History Family History Father Alzheimer disease Social History Social History Household Members: Spouse Housing: House Do you presently have visiting nurse or other home services: No Alcohol intake: former Patient Tobacco Use Status: Former Tobacco user Smoked in Last 30 Days: No Use of substances other than those prescribed or required for medical reasons: No Advance Directives: No Advance Directives Information Provided: No Advance Directives Date on File: 10/29/23 Do you have a plan to hurt others: No Plan service: No Physical Exam ED Vital Signs: Vital Signs - 24 hr 01/15/24 19:12 01/15/24 21:39 01/15/24 21:39 Temperature 98.6 F Pulse Rate 74 81 78 Respiratory Rate 17 Blood Pressure 180/82 H 131/67 102/60 Pulse Oximetry 96 Oxygen Delivery Method Room Air 01/15/24 22:05 Temperature 97.9 F Pulse Rate 78 Respiratory Rate 16 Blood Pressure 102/60 Pulse Oximetry 98 Oxygen Delivery Method Room Air BMI result Body Mass Index 23.5 Const General: cooperative, no acute distress, alert and awake Nutritional Appearance: well nourished Orientation/consciousness: patient oriented x3 Limitations: no limitations HENMT Other: Dried blood in bilateral nares Abrasion to bridge of nose Head: Yes abrasion and Yes contusion Ears: hearing grossly normal bilaterally and external ears normal General nose exam: no nasal discharge noted, Epistaxis present and Other nasal findings present (Superficial abrasion on bridge of nose ) Mouth: Normal oral and palatal mucosa present, no drooling and no muffled voice Eyes General: appearance normal, both eyes and all related structures Periorbital: periorbital findings normal Eyelids: Yes eyelids normal Conjunctivae: conjunctivae normal Pupils: Equal, round and reactive pupils present EOM: EOMs intact bilaterally Neck Neck: Yes normal visual inspection, Yes full ROM and Yes no lymphadenopathy Chest Chest palpation & inspection: normal inspection of the chest Resp Effort & Inspection: normal respiratory effort and able to speak in complete sentences GI Inspection: Yes normal to inspection Neuro General: patient oriented x3 and moves all extremities Cranial nerves: Yes Equal, round and reactive pupils present Cognition (Neuro): normal cognition Extrem General: Yes normal to inspection, Yes full ROM and Yes capillary refill normal Psych Appearance: grossly normal Mental Status: mental status grossly normal Affect: normal affect Attitude: cooperative Thought process: Normal thought process present Thought content: Normal thought content present Insight: Good insight present (Psych) Medications Administered Discontinued Medications Generic Name Dose Route Start Last Admin Trade Name Fritzq PRN Reason Stop Dose Admin Iohexol 100 ml 01/15/24 18:09 01/15/24 18:09 Iohexol 350 Mg/Ml 100 Ml Infus..Btl IV 01/15/24 18:10 85 ml ONCE ONE Administration Oxymetazoline HCl 2 spray 01/15/24 19:55 01/15/24 19:58 Oxymetazoline Hcl 0.05 % Nasal 15 Ml [place] NOSTRIL-B 01/15/24 19:56 2 spray ONCE ONE Administration Medical Decision Making Medical Decision Making [facility] Narrative: Patient is an 83 year old assigned male at with a history of Parkinson's disease and atrial fib for which he is on Xarelto presenting to the emergency department today after a trip and fall landing on his nose / chest. Patient's physical exam was as noted in the physical exam portion of this note. Patient's blood work was unremarkable. Patient's urine showed no acute process. Patient's EKG was unremarkable. Patient's chest, abdomen/pelvis, and head CT showed no acute process. Patient's CT face showed a nasal fracture. I explained my physical exam findings as well as all test results to the patient and the patient's . I answered all questions asked by the patient and the patient's . Patient began to have an episode of epistaxis before leaving the department which my attending physician, Dr. Medrano, helped me manage per his addendum. I stressed the importance of the patient taking his medication as directed (either prescribed or as the over the counter packaging recommends). I stressed the importance of the patient following up with his primary care provider. I stressed the importance of the patient returning to the emergency department immediately if he were to develop any a bloody nose lasting longer than 30 minutes, dizziness, shortness of breath, difficulty breathing, chest pain, blurry vision, loss of vision, nausea, vomiting, abdominal pain, fever, chills, back pain, or any other complaints. Patient and the patient's verbalized agreement and understanding with this treatment plan and discharge. Differential Diagnosis Differential Diagnoses: The differential diagnosis associated with the presentation includes Mechanical fall Nasal fracture Epistaxis Admission/Observation Consideration of admission/observation: Escalation of care including admission/observation considered Patient would have been admitted to the hospital had his work up had any findings where hospital admission was appropriate and his clinical presentation warranted hospital admission. Lab Data [facility] Lab Attestation statement: I reviewed the patient's lab results. My interpretation of these results are in the [facility] Rationale portion of this note. 01/15/24 17:17 01/15/24 17:17 Labs: Lab Results 01/15/24 01/15/24 Range/Units 17:17 20:24 WBC 6.5 (4.8-10.8) X10*3/uL RBC 3.64 L (4.60-5.80) X10*6/uL Hgb 13.0 L (14.0-18.0) g/dl Hct 37.2 L (42.0-52.0) % MCV 102.2 H (80.0-98.0) fL MCH 35.7 H (27.0-33.0) pg MCHC 34.9 (31.0-36.0) g/dl RDW 12.6 (11.0-16.0) % Plt Count 152 L (160-400) X10*3/uL MPV 11.2 (9.4-12.4) fL Immature Gran % (Auto) 0.5 H (0.0-0.4) % Neut % (Auto) 75.0 H (45-73) % Lymph % (Auto) 12.0 L (20-40) % Mccreary % (Auto) 10.6 (2-11) % Eos % (Auto) 1.7 (0-4) % Baso % (Auto) 0.2 (0-2) % Lymph # (Auto) 0.8 L (1.2-4.9) X10*3/uL Mccreary # (Auto) 0.7 (0.1-1.2) X10*3/uL Eos # (Auto) 0.1 (0.0-0.4) X10*3/uL Baso # (Auto) 0.0 (0.0-0.2) X10*3/uL Abs Immat Gran (auto) 0.03 (0.00-0.03) X10*3/uL Absolute Neuts (auto) 4.9 (2.0-8.3) x10*3/uL Absolute Nucleated RBC 0.000 (0.0-0.012) X10*3/uL Nucleated RBC % (auto) 0.0 (0.0-0.2) /100WBC PT 12.9 H (10.9-12.4) SEC INR 1.1 (0.9-1.1) APTT 31.7 (26.0-36.8) SEC Sodium 144 (135-145) mmol/L Potassium 4.0 (3.3-5.1) mmol/L Chloride 108 (96-108) mmol/L Carbon Dioxide 25 (22-29) mmol/L Anion Gap 15 (12-20) BUN 25 H (9-16) mg/dL Creatinine 1.13 (0.5-1.4) mg/dL Estim Creat Clear Calc 59.6 Estimated GFR > 60 Random Glucose 97 (60-115) mg/dL Calcium 9.8 D (8.4-10.2) mg/dL Magnesium 2.4 (1.6-2.6) mg/dL Total Bilirubin 0.5 (0.0-1.0) mg/dL AST 25 (5-37) U/L ALT 7 (0-40) U/L Alkaline Phosphatase 89 (39-117) U/L Troponin I High Sens 7.4 (<3.5-35.0) ng/L Total Protein 7.2 (6.5-8.0) g/dL Albumin 4.2 (3.5-5.0) g/dL Urine Color Yellow Urine Appearance Clear Urine pH 5.0 (5.0-9.0) Ur Specific [place] >= 1.030 H (1.005-1.025) Urine Protein Trace (Neg-Trace) mg/dL Urine Glucose (UA) Negative (Negative) mg/dL Urine Ketones 15 (Negative) mg/dL Urine Blood Negative (Negative) Urine Nitrite Negative (Negative) Ur Leukocyte Esterase Negative (Negative) Independent Interpretation I performed an independent interpretation of an: EKG and CT Scan Interpretation: My interpretation is in agreement with the radiologist's impression of these imaging studies. L EXAMINATION: CT HEAD WITHOUT CONTRAST CT FACIAL BONES WITHOUT CONTRAST CT CERVICAL SPINE WITHOUT CONTRAST CLINICAL INFORMATION: Fall, pain, trauma COMPARISON: None available. TECHNIQUE: Imaging was performed from the skull base to vertex without intravenous administration of contrast. In addition, helical noncontrast CT imaging was acquired through the cervical spine and facial bones and source images were reviewed along with axial reconstructions and sagittal and coronal MPRs. This CT examination was performed using dose optimization techniques as appropriate, variously including the following: *Automated exposure control *Adjustment of mA and/or kV according to patient size (this includes techniques or standardized protocols for targeted exams where dose is matched to indication/reason for exam; i.e. extremities or head) *Use of iterative reconstruction technique Total exam dose-length product 2724 mGy-cm FINDINGS: HEAD: No intracranial mass, hemorrhage, or midline shift is visualized. The ventricles and sulci are age-appropriate. No extra-axial collections are identified. The paranasal sinuses are well aerated. CERVICAL SPINE: There is no evidence of acute cervical spine fracture. There is degenerative anterolisthesis at the T2-C3 and retrolisthesis at C3-C4, C4 4-C5, and C5-C6. There is multilevel loss of intervertebral disc space with endplate degenerative changes. There is multilevel mild spinal canal stenosis and foraminal stenosis. No pre- or paravertebral soft tissue abnormality is identified. Limited assessment of the lung apices is unremarkable. FACE: There are acute minimally displaced fractures of the bilateral nasal bones with overlying soft tissue swelling. The intraconal and extraconal fat of both orbits is preserved. The globes, optic nerve sheaths, extraocular muscles, and lacrimal glands demonstrate a symmetric and unremarkable appearance. Mild mucosal thickening of the right ethmoid and maxillary sinuses. There is hemorrhage and fluid within the left ethmoid air cells. There is a small right maxillary sinus mucocele. The zygomatic arches appear intact without evidence of fracture or sutural diastasis. The middle ear cavities and imaged mastoid air cells are clear. There is no evidence of acute fracture of the midface or mandible. The temporomandibular joints maintain normal articulation. CT/CT head/brain wo IV con IMPRESSION: 1. No acute intracranial pathology. 2. No CT evidence of acute cervical spine fracture or traumatic subluxation. 3. Acute minimally displaced fractures of the bilateral nasal bones with overlying soft tissue swelling. Electronically signed by: Joanna Anders MD 01/15/2024 07:26 PM EDT RP Dictated By: Joanna Anders MD Signed By: Electronically signed by Joanna Anders MD 01/15/24 1926 EXAMINATION: CT CHEST, ABDOMEN, AND PELVIS WITH IV CONTRAST CLINICAL INFORMATION: Fall, blunt trauma COMPARISON: None TECHNIQUE: Helical computed tomography was performed from the inferior neck through the pubic symphysis after administration of 85 mL of Omnipaque 350 intravenous contrast. Multiplanar reconstructions are available for interpretation. All CT exams at this location are performed using dose optimization techniques as appropriate to a performed exam including at least one of the following: * Automated exposure control * Adjustment of the mA and/or kV according to patient size (this includes techniques or standardized protocols for targeted exams where dose is matched to indication / reason for exam; i/e/ extremities or head) * Use of iterative reconstructive technique Total DLP is 872 mGy*cm. FINDINGS: Lungs: The lung parenchyma is normal bilaterally. Bibasilar atelectasis Airways: The central airways are patent. The peripheral airways are normal. Pleura: The pleural surfaces are normal bilaterally. There is no pleural effusion. There is no pneumothorax. Mediastinum/Jennifer: There are no pathologically enlarged mediastinal or hilar lymph nodes. Cardiovascular: The heart is globally normal in size. The thoracic aorta is normal in course and caliber. The main pulmonary artery is normal in caliber. There is no pericardial effusion or pericardial thickening. Liver: Normal in size and attenuation. Multiple subcentimeter hypodensities throughout the liver which are too small to reliably characterize but likely represent simple cysts Gallbladder and bile ducts: The gallbladder is normal. No intrahepatic or extrahepatic biliary ductal dilatation. Spleen: Normal in size and attenuation. Pancreas: Unremarkable. Adrenal glands: Unremarkable. Right kidney: The right kidney is normal. There is no hydronephrosis or hydroureter. Left kidney: The left kidney is normal. There is no hydronephrosis or hydroureter. Lymph nodes: There is no lymphadenopathy in the abdomen or pelvis. Gastrointestinal tract: Large hiatal hernia extending into the chest. Small bowel loops are unremarkable. Moderate amount of stool seen throughout the colon. No bowel wall thickening Urinary bladder: The bladder is unremarkable. Pelvic organs: The prostate is unremarkable. Vasculature: Congenital left-sided IVC. Left-sided IVC empties into the left renal vein. The suprarenal IVC appears congenitally atretic. There is nonspecific inflammatory stranding surrounding the aorta and IVC. Aorta is normal in caliber with scattered atherosclerotic plaque. Contour of the aorta is irregular. Cannot exclude ulcerative plaque. IVC is unopacified. Cannot exclude underlying thrombosis. There are multiple tiny retroperitoneal lymph nodes. Additional findings: There is no intraperitoneal free air or fluid. Soft tissues: Unremarkable. Osseous structures: Old healed left posterior rib fractures. No acute fracture seen. Degenerative disc disease is seen in the lumbar spine. Normal vertebral body height and alignment. No acute fractures CT/CT chest w IV con IMPRESSION: 1. No acute traumatic injury seen in the chest, abdomen or pelvis. 2. Congenital left-sided IVC. There is nonspecific inflammatory stranding surrounding the aorta and IVC. Aorta is normal in caliber with scattered atherosclerotic plaque. Contour of the aorta is irregular. Cannot exclude ulcerative plaque. IVC is unopacified. Cannot exclude underlying thrombosis. Cannot exclude a subtle vascular injury versus inflammatory process. 3. Recommend further evaluation with dedicated CTA/CTV. 4. Large hiatal hernia. 5. Multiple subcentimeter hypodensities throughout the liver which are too small to reliably characterize but likely represent simple cysts. Electronically signed by: Hayes Rico MD 01/15/2024 07:44 PM EDT RP Dictated By: Hayes Rico MD Signed By: Electronically signed by Hayes Rico MD 01/15/24 194 Vent. Rate: 072 BPM Atrial Rate: 072 BPM P-R Int: 148 ms QRS Dur: 070 ms QT Int: 442 ms P-R-T Axes: 046 023 047 degrees QTc Int: 483 ms Normal sinus rhythm Nonspecific ST and T wave abnormality When compared with ECG of 28-OCT-2023 17:59, No significant change was found Referred By: Desirae Montes Electronically Signed By:GADIEL LINK MD Dictated By: Gadiel Link MD Signed By: Electronically signed by Gadiel Link MD 01/16/24 1110 Radiology Impression Discussion of test interpretation with radiology: I have reviewed the radiologist's reading. Independent Historian Clinical information obtained from an independent historian. History obtained from or confirmed by: Spouse (Patient's provided additional history and confirmed the history provided by the patient.) and EMS (EMS provided additional history and confirmed the history provided by the patient.) Prescription Management I considered prescription management with: Antibiotic (patient treated with an antibiotic for possible open nasal fx.) Critical Care Time Critical Care Time Critical Care Time: Yes Total Critical Care Time: 37 Attestation: I spent 37 minutes of Critical Care Time with this patient. This does not include time spent on separately reported billable procedures. Discharge Plan Discharge Clinical Impression: Fall, Fracture of nasal bone, Epistaxis Patient Disposition: Home, Self-Care Instructions: Nasal Fracture (ED), Nosebleed (ED), Fall Prevention for Older Adults (ED) Additional Instructions: HOLD your Xarelto and restart it on 01/18/2024. Do NOT blow your nose. Follow up with your primary care provider and an ENT. Return to the emergency department immediately if your symptoms worsen or if you develop any dizziness, shortness of breath, difficulty breathing, chest pain, blurry vision, loss of vision, nausea, vomiting, abdominal pain, fever, chills, back pain, or any other complaints. Prescriptions: New amoxicillin-pot clavulanate 875-125 mg tablet 1 tab PO BID 10 Days Qty: 20 0RF No Action fludrocortisone 0.1 mg tablet 0.1 mg PO TID 90 Days Qty: 270 1RF midodrine 10 mg tablet 10 mg PO TID 90 Days Qty: 270 1RF Rx Instructions: do not give last dose of day after 6PM or within 4 hrs of bedtime carbidopa-levodopa 25-100 mg tablet 1 tab PO TID 90 Days Qty: 270 1RF rasagiline 1 mg tablet 1 mg PO DAILY 90 Days Qty: 90 1RF cyanocobalamin (vitamin B-12) [Vitamin B-12] 1,000 mcg Tablet 1,000 mcg PO DAILY Qty: 90 0RF (DME) compression stockings See Rx Instructions .Route .MEDSUPPLY Qty: 1 2RF Rx Instructions: As directed atorvastatin 20 mg tablet 20 mg PO BEDTIME Qty: 90 0RF clonazepam 0.5 mg tablet 0.5 mg PO BEDTIME Rx Instructions: administer 30 minutes before bedtime. 1-2 tabs Xarelto 20 mg tablet 20 mg PO QPM Rx Instructions: must administer with evening meal potassium supplement PO droxidopa 300 mg capsule 300 mg PO TID 30 Days Qty: 90 6RF Rx Instructions: give consistently with OR without food, upon rising, at midday, late PM/at least 3hrs before bedtime droxidopa 100 mg capsule 100 mg PO TID Qty: 90 6RF Rx Instructions: for total dose of 400mg tid -give consistently with OR without food, upon rising, at midday, late PM/at least 3hrs before bedtime Referrals: [facility] [Provider Group] (Call to establish and follow up with an ENT.) Soo Rodney MD [Primary Care Provider] - Alexx Landaverde [Physician] - (Call to establish and follow up with an ENT.) Interventions: ED Discharge Assessment Last Done: 01/15/24 22:05 Discharge Date/Time: 01/15/24 22:06 Print Language: Mongolian
--- NOTE | 2024-01-15 16:28 | ECG_ITS ---
Test Reason : fall w headstrike Blood Pressure : / mmHG Vent. Rate : 072 BPM Atrial Rate : 072 BPM P-R Int : 148 ms QRS Dur : 070 ms QT Int : 442 ms P-R-T Axes : 046 023 047 degrees QTc Int : 483 ms Normal sinus rhythm Nonspecific ST and T wave abnormality Abnormal ECG When compared with ECG of 28-OCT-2023 17:59, No significant change was found Referred By: Desirae Montes Electronically Signed By:EMORY LINK MD
[2024-01-15 16:32] VITALS: BP 150/70; PULSE 70; O2SAT 98; BMI 23.5
[2024-01-15 17:23] LABS: MANUAL DIFF FLAG NO
[2024-01-15 17:24] LABS: Basophils Percent Auto 0.2 % (0-2); Eosinophils Absolute Auto 0.1 X10*3/uL (0.0-0.4); Eosinophils Percent Auto 1.7 % (0-4); Hematocrit 37.2 % (42.0-52.0); Imm Gran Abs Auto 0.03 X10*3/uL (0.00-0.03); Imm Gran Pct Auto 0.5 % (0.0-0.4); Lymphocytes Absolute Auto 0.8 X10*3/uL (1.2-4.9); Mean Corpuscular HGB Conc 34.9 g/dl (31.0-36.0); Mean Corpuscular Hemoglobin 35.7 pg (27.0-33.0); Mean Corpuscular Volume 102.2 fL (80.0-98.0); Mean Platelet Volume 11.2 fL (9.4-12.4); Monocytes Absolute Auto 0.7 X10*3/uL (0.1-1.2); Monocytes Percent Auto 10.6 % (2-11); Neutrophils Absolute Auto 4.9 x10*3/uL (2.0-8.3); Platelet Count 152 X10*3/uL (160-400); Red Blood Count 3.64 X10*6/uL (4.60-5.80); Red Cell Distribution Width 12.6 % (11.0-16.0); White Blood Count 6.5 X10*3/uL (4.8-10.8)
[2024-01-15 17:43] LABS: Alanine Aminotransferase 7 U/L (0-40); Albumin Level 4.2 g/dL (3.5-5.0); Alkaline Phosphatase 89 U/L (39-117); Anion Gap 15 (12-20); Aspartate Amino Transferase 25 U/L (5-37); Bilirubin Total 0.5 mg/dL (0.0-1.0); Blood Urea Nitrogen 25 mg/dL (9-16); Calcium 9.8 mg/dL (8.4-10.2); Carbon Dioxide 25 mmol/L (22-29); Chloride 108 mmol/L (96-108); Creatinine Clr Calc Pharmacy 59.6; Estimated Glomerular Filt Rate > 60; Glucose Random 97 mg/dL (60-115); Magnesium 2.4 mg/dL (1.6-2.6); Sodium 144 mmol/L (135-145); Total Protein 7.2 g/dL (6.5-8.0)
[2024-01-15 17:46] LABS: Troponin-I High Sensitivity 7.4 ng/L (<3.5-35.0)
[2024-01-15] MEDS: iohexoL 350 MG/ML 100 ML INFUS..BTL IV (18:09)
[2024-01-15 18:12] LABS: INTERNATIONAL NORM RATIO 1.1 (0.9-1.1); Prothrombin Time 12.9 SEC (10.9-12.4)
[2024-01-15 18:15] LABS: Partial Thromboplastin Time 31.7 SEC (26.0-36.8)
[2024-01-15 19:12] VITALS: BP 180/82; PULSE 74; RESP 17; TEMP 37; O2SAT 96
--- NOTE | 2024-01-15 19:13 | PC.NURSE ---
this rn assumed care of pt, pt a&ox4, respirations even and unlabored. pt has c collar in place. pt reporting pain to nose due to fall, blood noted in nostrils but controlled. vss.
--- NOTE | 2024-01-15 19:35 | PC.NURSE ---
provider at bedside cleaning nose lac and blood in nostrils.
[2024-01-15] MEDS: Oxymetazoline HCl 0.05 % Nasal 15 ML SPRAY 2 SPRAY NOSTRIL-B (19:58)
--- NOTE | 2024-01-15 20:07 | PC.NURSE ---
pt left nostril noted to be bleeding at this time, afarin administered, alligator clamps placed. pt nose continuing to bleed. at bedside placing dose of afarin into nostril, alligator clamps replaced. pt bleeding noted to slow.
[2024-01-15 20:32] LABS: Appearance Urine Clear; Color Urine Yellow; Glucose Urine UA Negative (Negative); Leukocyte Esterase Urine Negative (Negative); Nitrite Urine Negative (Negative); Specific Gravity - Urine >= 1.030 (1.005-1.025); Urine Blood Negative (Negative); Urine Ketones 15 mg/dL (Negative); Urine Protein Trace mg/dL (Neg-Trace)
--- NOTE | 2024-01-15 20:40 | PC.NURSE ---
alligator clamps removed at this time, pt bleeding controlled.
--- NOTE | 2024-01-15 21:38 | PC.NURSE ---
this RN took pt for ambulation trial, pt reported lightheadedness and almost had a fall, pt assisted into wheelchair. blood pressure obtained, significant blood pressure decrease noted. pt denies lightheadedness when sitting down. aware. Nose bleed controlled.
[2024-01-15 21:39] VITALS: BP 102/60; BP 131/67; PULSE 78; PULSE 81
--- NOTE | 2024-01-15 21:52 | PC.NURSE ---
at bedside, pt at bedside states pt has multiple follow up appointments, wheelchair, and walker at home and help from daughter. pt states she feels comfortable with discharge of pt home.
[2024-01-15 22:05] VITALS: BP 102/60; PULSE 78; RESP 16; TEMP 36.6; O2SAT 98
== END 2024-01-15 22:06 | disposition home or self-care (01) ==
PROVIDERS: Physician Assistant Medical; Emergency Provider Emergency Medicine; PCP Family Medicine
DX: S02.2XXA Fracture of nasal bones, initial encounter for closed fracture (principal); W01.0XXA Fall on same level from slipping, tripping and stumbling without subsequent striking against object, initial encounter; R04.0 Epistaxis; I10 Essential (primary) hypertension; G20.A1 Parkinson's disease without dyskinesia, without mention of fluctuations; I48.91 Unspecified atrial fibrillation; Y93.89 Activity, other specified; Y92.019 Unspecified place in single-family (private) house as the place of occurrence of the external cause; Y99.9 Unspecified external cause status
CPT/HCPCS: 36415; 70450; 70486; 71260; 72125; 74177; 80053; 81003; 83735; 84484; 85025; 85610; 85730; 93005; 99285; Q9967

== ENCOUNTER → 2024-01-15 16:28 | Outpatient (BNV) | payer MEDICARE, BC, SELFPAY | PROVIDERS: Emergency Provider Emergency Medicine; PCP Family Medicine; Visit Provider Internal Medicine Cardiovascular Disease | DX: R94.31 Abnormal electrocardiogram [ECG] [EKG] (principal) | CPT/HCPCS: 93010 ==

== ENCOUNTER 2024-02-01 17:31 | Emergency (ER) | payer MEDICARE, BC, SELFPAY ==
--- NOTE | ~2024-02-01 | CT_ITS ---
EXAMINATION: CT CHEST WITHOUT CONTRAST CLINICAL INFORMATION: Status post fall with question of manubrial fracture COMPARISON: CT chest abdomen and pelvis 01/15/2024 TECHNIQUE: Multidetector volumetric CT imaging of the chest was obtained after without intravenous contrast. Axial MIP volume rendering provided. Sagittal and coronal reformatted images were obtained. This CT examination was performed using dose optimization techniques as appropriate, variously including the following: *Automated exposure control *Adjustment of mA and/or kV according to patient size (this includes techniques or standardized protocols for targeted exams where dose is matched to indication/reason for exam; i.e. extremities or head) *Use of iterative reconstruction technique DLP: 425 mGy-cm FINDINGS: LUNGS: The lungs are clear with no evidence of inflammation or nodules. Bibasilar atelectasis is present. MEDIASTINUM: The mediastinum is normal. CORONARY ARTERY CALCIUM: Not appreciated VASCULAR: Unremarkable PLEURA: There is no pleural effusion. No pleural mass or thickening. AXILLA: No lymphadenopathy. UPPER ABDOMEN: Moderate sized hiatal hernia is present OSSEOUS STRUCTURES: There is a fracture through the mid sternum with about 3.5 mm on off set of the fragments. There is a fracture of the right 3rd and 4th anterior rib and the left anterior 4th rib. Old healed bilateral posterior rib fractures are seen. Degenerative changes are present in the spine. There is an acute compression fracture of the inferior endplate of T12 ( L1 appears to have a vestigial rib) with an avulsion involving the anterolateral inferior endplate (see saved mensah images). CT/CT chest wo IV con IMPRESSION: 1. Acute fracture of the mid sternum. 2. Fractures of the right 3rd and 4th anterior rib and left anterior 4th rib. 3. Acute fracture of the T12 vertebral body as described above 4. Incidental note made of old healed bilateral posterior rib fractures and a moderate-sized hiatal hernia. Fleischner guidelines were followed. Electronically signed by: Sean Hsieh MD 02/01/2024 08:57 PM EDT
[2024-02-01 17:37] VITALS: BP 137/78; BP 88/53; PULSE 70; PULSE 85; RESP 16; TEMP 36.6; O2SAT 96; O2SAT 98; BMI 24.2
--- NOTE | 2024-02-01 18:29 | ED.FALL ---
HPI - Fall General Chief Complaint: Syncope Stated Complaint: syncope Time Seen by Provider: 02/01/24 18:02 Source: patient and family Mode of arrival: EMS Limitations: no limitations History of Present Illness ED Provider: hansel FRANCO Narrative: Patient's history of Parkinson atrial fibrillation on Xarelto does have orthostatic hypotension changes was trying to sit on toilet fell lightheaded almost passed out as happened in the past swayed and hit left side of the chest to the wall history of similar falls in the past was seen here [address] spine and at was negative patient did not hit his head this time was there last ED visit was 01/14 patient is at baseline today seen his primary care physician earlier today had x-rays results are not available 2 weeks ago patient apparently fell and hit his chest to the couch since then been having pain in the mid chest Related Data Home Medications ?Medication ?Instructions ?Recorded ?Confirmed clonazepam 0.5 mg tablet 0.5 mg PO BEDTIME 04/11/22 12/02/23 rivaroxaban 20 mg tablet (Xarelto) 20 mg PO QPM 04/11/22 12/02/23 potassium supplement PO 12/02/23 12/02/23 Previous Rx's ?Medication ?Instructions ?Recorded fludrocortisone 0.1 mg tablet 0.1 mg PO TID 90 days #270 tabs 08/10/23 midodrine 10 mg tablet 10 mg PO TID 90 days #270 tabs 08/10/23 carbidopa 25 mg-levodopa 100 mg 1 tab PO TID 90 days #270 tabs 10/20/23 tablet atorvastatin 20 mg tablet 20 mg PO BEDTIME #90 tabs 10/30/23 compression stockings #1 ea 10/30/23 cyanocobalamin (vitamin B-12) 1,000 mcg PO DAILY #90 tabs 10/30/23 1,000 mcg tablet (Vitamin B-12) rasagiline 1 mg tablet 1 mg PO DAILY 90 days #90 tabs 11/20/23 droxidopa 100 mg capsule 100 mg PO TID #90 caps 12/02/23 droxidopa 300 mg capsule 300 mg PO TID 30 days #90 caps 12/02/23 amoxicillin 875 mg-potassium 1 tab PO BID 10 days #20 tabs 01/15/24 clavulanate 125 mg tablet lidocaine 4 % topical patch 1 patch topical DAILY PRN pain #30 02/01/24 (Salonpas (lidocaine)) ea oxycodone 5 mg tablet 5 mg PO Q6H PRN pain #20 tabs 02/01/24 Allergies Allergy/AdvReac Type Severity Reaction Status Date / Time No Known Allergies Allergy Verified 02/01/24 17:45 Review of Systems Review of Systems: Yes all other systems are reviewed and are negative COUNT INCLUDES THE [facility] Past Medical History Medical History Orthostatic hypotension Hypertension Orthostatic hypotension 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 Atrial fibrillation Prostate cancer Surgical History Status post Mohs surgery Hx of appendectomy Family History Family History Father Alzheimer disease Social History Social History Household Members: Spouse Housing: House Do you presently have visiting nurse or other home services: No Alcohol intake: former Patient Tobacco Use Status: Former Tobacco user Smoked in Last 30 Days: No Use of substances other than those prescribed or required for medical reasons: No Advance Directives: No Advance Directives Information Provided: No Advance Directives Date on File: 10/29/23 Do you have a plan to hurt others: No Plan service: No Physical Exam Vital Signs: Vital Signs: Last Vital Signs Temp 98 F 02/01/24 22:22 Pulse 79 02/01/24 22:22 Resp 16 02/01/24 22:22 BP 103/67 02/01/24 22:22 Pulse Ox 98 02/01/24 22:22 O2 Del Method Room Air 02/01/24 22:22 BMI result Body Mass Index 24.2 Appearance: Alert. Oriented X3. No acute distress. Eyes: No pallor or icterus HEENT: Pharynx normal. Oral Mucosa moist AT NC Neck: Normal inspection. Neck supple. CVS: Normal heart rate and rhythm. Pulses normal. Respiratory: No respiratory distress. Equal air entry bilateral, no wheezing/rales/rhonchi tender to touch midsternal Abdomen: Soft and nontender. Bowel sounds are present, no mass palpable, no CVA tenderness Skin: Skin warm and dry. Normal skin color. Normal skin turgor. Extremities: No lower extremity edema. No calf tenderness Neuro: Oriented X 3. No motor deficit. No sensory deficit.No cerebellar signs , cranial nerves II-XII intact Medications Administered Discontinued Medications Generic Name Dose Route Start Last Admin Trade Name Fritzq PRN Reason Stop Dose Admin Lidocaine 1 patch 02/01/24 21:53 02/01/24 22:05 Lidocaine 4 % Patch Adh..Patch TRANSDERMA 02/01/24 21:54 1 patch ONCE ONE Administration Protocol Morphine Sulfate 4 mg 02/01/24 21:19 02/01/24 21:25 Morphine Sulfate 4 Mg/Ml Cartridge IVPUSH 02/01/24 21:20 4 mg ONCE ONE Administration Protocol Ondansetron HCl 4 mg 02/01/24 21:19 02/01/24 21:24 Ondansetron Hcl 4 Mg/2 Ml Vial IVPUSH 02/01/24 21:20 4 mg ONCE ONE Administration Medical Decision Making Medical Decision Making [facility] Narrative: Patient with minor fall with previous injury to the chest [address] scan was done which showed fracture of the midsternum without significant displacement fracture of 3rd and 4th anterior ribs and T12 compression fracture patient is not much in pain if he does not move already has tramadol at home advised to follow with PCP Differential Diagnosis Differential Diagnoses: The differential diagnosis associated with the presentation includes Independent Interpretation I performed an independent interpretation of an: CT Scan Interpretation: Sternal fracture, rib fracture, vertebral fracture Radiology Impression Discussion of test interpretation with radiology: I have reviewed the radiologist's reading. Radiologist Impression: [place] [id number] CT Scan Report Signed Patient: Ozzie Langford MR#: [id number] : 1940 Acct:[id number] Age/Sex: 83 / M ADM Date: 02/01/24 Loc: HO.ED Attending Dr: Ordering Physician: Dale Townsend MD Date of Service: 02/01/24 Procedure(s): CT chest wo IV con Accession Number(s): [id number] cc: Physician,Unknown ; Dale Townsend MD~ EXAMINATION: CT CHEST WITHOUT CONTRAST CLINICAL INFORMATION: Status post fall with question of manubrial fracture COMPARISON: CT chest abdomen and pelvis 01/15/2024 TECHNIQUE: Multidetector volumetric CT imaging of the chest was obtained after without intravenous contrast. Axial MIP volume rendering provided. Sagittal and coronal reformatted images were obtained. This CT examination was performed using dose optimization techniques as appropriate, variously including the following: *Automated exposure control *Adjustment of mA and/or kV according to patient size (this includes techniques or standardized protocols for targeted exams where dose is matched to indication/reason for exam; i.e. extremities or head) *Use of iterative reconstruction technique DLP: 425 mGy-cm FINDINGS: LUNGS: The lungs are clear with no evidence of inflammation or nodules. Bibasilar atelectasis is present. MEDIASTINUM: The mediastinum is normal. CORONARY ARTERY CALCIUM: Not appreciated VASCULAR: Unremarkable PLEURA: There is no pleural effusion. No pleural mass or thickening. AXILLA: No lymphadenopathy. UPPER ABDOMEN: Moderate sized hiatal hernia is present OSSEOUS STRUCTURES: There is a fracture through the mid sternum with about 3.5 mm on off set of the fragments. There is a fracture of the right 3rd and 4th anterior rib and the left anterior 4th rib. Old healed bilateral posterior rib fractures are seen. Degenerative changes are present in the spine. There is an acute compression fracture of the inferior endplate of T12 ( L1 appears to have a vestigial rib) with an avulsion involving the anterolateral inferior endplate (see saved mensah images). CT/CT chest wo IV con IMPRESSION: 1. Acute fracture of the mid sternum. 2. Fractures of the right 3rd and 4th anterior rib and left anterior 4th rib. 3. Acute fracture of the T12 vertebral body as described above 4. Incidental note made of old healed bilateral posterior rib fractures and a moderate-sized hiatal hernia. Fleischner guidelines were followed. Electronically signed by: Sean Hsieh MD 02/01/2024 08:57 PM EDT RP Discharge Plan Discharge Clinical Impression: Sternal fracture, Fracture of rib, T12 compression fracture Patient Disposition: Home, Self-Care Instructions: Rib Fracture (ED), Vertebral Compression Fracture (ED) Additional Instructions: Your sternum and ribs are fractured Pain medication as prescribed Follow up with your PCP Prescriptions: New oxycodone 5 mg tablet 5 mg PO Q6H PRN (Reason: pain) Qty: 20 0RF Rx Instructions: Partial Fill upon patient request. lidocaine [Salonpas (lidocaine)] 4 % adhesive patch,medicated 1 patch topical DAILY PRN (Reason: pain) Qty: 30 0RF No Action fludrocortisone 0.1 mg tablet 0.1 mg PO TID 90 Days Qty: 270 1RF midodrine 10 mg tablet 10 mg PO TID 90 Days Qty: 270 1RF Rx Instructions: do not give last dose of day after 6PM or within 4 hrs of bedtime carbidopa-levodopa 25-100 mg tablet 1 tab PO TID 90 Days Qty: 270 1RF rasagiline 1 mg tablet 1 mg PO DAILY 90 Days Qty: 90 1RF amoxicillin-pot clavulanate 875-125 mg tablet 1 tab PO BID 10 Days Qty: 20 0RF cyanocobalamin (vitamin B-12) [Vitamin B-12] 1,000 mcg Tablet 1,000 mcg PO DAILY Qty: 90 0RF (DME) compression stockings See Rx Instructions .Route .MEDSUPPLY Qty: 1 2RF Rx Instructions: As directed atorvastatin 20 mg tablet 20 mg PO BEDTIME Qty: 90 0RF clonazepam 0.5 mg tablet 0.5 mg PO BEDTIME Rx Instructions: administer 30 minutes before bedtime. 1-2 tabs Xarelto 20 mg tablet 20 mg PO QPM Rx Instructions: must administer with evening meal potassium supplement PO droxidopa 300 mg capsule 300 mg PO TID 30 Days Qty: 90 6RF Rx Instructions: give consistently with OR without food, upon rising, at midday, late PM/at least 3hrs before bedtime droxidopa 100 mg capsule 100 mg PO TID Qty: 90 6RF Rx Instructions: for total dose of 400mg tid -give consistently with OR without food, upon rising, at midday, late PM/at least 3hrs before bedtime Interventions: ED Discharge Assessment Last Done: 02/01/24 22:22 Discharge Date/Time: 02/01/24 22:24 Print Language: Welsh
[2024-02-01 18:42] VITALS: O2SAT 96
[2024-02-01] MEDS: ondansetron HCL 4 MG/2 ML VIAL IVPUSH (21:24)
[2024-02-01] MEDS: Morphine Sulfate 4 MG/ML CARTRIDGE IVPUSH (21:25)
[2024-02-01 21:27] VITALS: BP 143/72; PULSE 79; RESP 16; O2SAT 98
[2024-02-01] MEDS: Lidocaine 4 % Patch ADH..PATCH 1 PATCH TRANSDERMA (22:05)
[2024-02-01 22:22] VITALS: BP 103/67; PULSE 79; RESP 16; TEMP 36.6; O2SAT 98
== END 2024-02-01 22:24 | disposition home or self-care (01) ==
PROVIDERS: Emergency Provider Internal Medicine
DX: S22.20XA Unspecified fracture of sternum, initial encounter for closed fracture (principal); S22.43XA Multiple fractures of ribs, bilateral, initial encounter for closed fracture; S22.080A Wedge compression fracture of T11-T12 vertebra, initial encounter for closed fracture; W18.12XA Fall from or off toilet with subsequent striking against object, initial encounter; I48.91 Unspecified atrial fibrillation; I95.1 Orthostatic hypotension; I10 Essential (primary) hypertension; G20.A1 Parkinson's disease without dyskinesia, without mention of fluctuations; Z85.46 Personal history of malignant neoplasm of prostate; Z87.891 Personal history of nicotine dependence; Y93.89 Activity, other specified; Y92.012 Bathroom of single-family (private) house as the place of occurrence of the external cause; Y99.9 Unspecified external cause status; Z79.01 Long term (current) use of anticoagulants; Z79.899 Other long term (current) drug therapy
CPT/HCPCS: 71250; 96374; 96375; 99284; 99285; J2270; J2405

== ENCOUNTER 2024-03-29 09:27 | Emergency (ER) | payer MEDICARE, BC, SELFPAY ==
--- NOTE | ~2024-03-29 | CT_ITS ---
EXAMINATION: CT HEAD WITHOUT CONTRAST CLINICAL INFORMATION: Fall on blood thinners COMPARISON: 01/15/2024 TECHNIQUE: Contiguous axial imaging was performed from the skull base to vertex without intravenous administration of contrast. This CT examination was performed using dose optimization techniques as appropriate, variously including the following: *Automated exposure control *Adjustment of mA and/or kV according to patient size (this includes techniques or standardized protocols for targeted exams where dose is matched to indication/reason for exam; i.e. extremities or head) *Use of iterative reconstruction technique DLP: 743 mGy-cm FINDINGS: Mild prominence to the sulci and ventricles. No intra or extra-axial fluid collection or hemorrhage, mass, or mass effect. Mild involutional change noted. Calvarium intact. CT/CT head/brain wo IV con IMPRESSION: No acute intracranial pathology. Electronically signed by: Jose Breaux MD 03/29/2024 11:53 AM [facility]
--- NOTE | ~2024-03-29 | XR_ITS ---
EXAMINATION: XR HIP, RIGHT CLINICAL INFORMATION: Fall, pain COMPARISON: None available. TECHNIQUE: Two views of the right hip. FINDINGS: No fracture, dislocation, or suspicious bone lesion. Normal alignment of both hip joints. Femoral heads maintain normal contour. Mild degenerative changes of both hip joints. Sacrum and SI joints appear normal. Mild degenerative changes lower lumbar spine. Soft tissues demonstrate no focal abnormality. XR/XR hip RT w PEL1V IMPRESSION: No acute findings right hip. Electronically signed by: Rich Tapia MD 03/29/2024 10:25 AM [facility]
--- NOTE | ~2024-03-29 | CT_ITS ---
EXAMINATION: CT CERVICAL SPINE WITHOUT CONTRAST CLINICAL INFORMATION: Fall on blood thinner COMPARISON: 01/15/2024 TECHNIQUE: Thin section axial imaging with sagittal and coronal reformats. This CT examination was performed using dose optimization techniques as appropriate, variously including the following: *Automated exposure control *Adjustment of mA and/or kV according to patient size (this includes techniques or standardized protocols for targeted exams where dose is matched to indication/reason for exam; i.e. extremities or head) *Use of iterative reconstruction technique DLP: 414 mGy-cm FINDINGS: Advanced degenerative change and spondylosis noted C4-C7 with reversal of the normal cervical lordosis. Posterior spurring create slight mass effect on the ventral aspect of the spinal canal at the C4-5 and C5-6 and C6-7 levels. No fracture or destructive process. Prevertebral soft tissues are normal. No change. Lung apices clear. CT/CT cervical spine wo IV con IMPRESSION: Stable multilevel degenerative change. No acute findings or fracture. Fleischner guidelines were followed. Electronically signed by: Jose Breaux MD 03/29/2024 11:40 AM [facility]
[2024-03-29 09:36] VITALS: BP 117/67; PULSE 77; PULSE 80; RESP 16; TEMP 36.6; O2SAT 98; O2SAT 99; BMI 24.0
--- NOTE | 2024-03-29 10:04 | ED_ITS ---
HPI - Fall General Chief Complaint: Fall Stated Complaint: FALL T-1,NECK/R HIP PAIN PER EMS Time Seen by Provider: 03/29/24 09:40 Source: patient Mode of arrival: ambulatory History of Present Illness ED Provider: Jose FRANCO Narrative: 83-year-old male, history of Parkinson's, on chronic anticoagulation for atrial fibrillation, ambulates with a walker and fell yesterday but did not strike his head, denies any loss of consciousness and reports pain at the right hip and difficulty standing. Related Data Home Medications ?Medication ?Instructions ?Recorded ?Confirmed clonazepam 0.5 mg tablet 0.5 mg PO BEDTIME 04/11/22 12/02/23 rivaroxaban 20 mg tablet (Xarelto) 20 mg PO QPM 04/11/22 12/02/23 potassium supplement PO 12/02/23 12/02/23 Previous Rx's ?Medication ?Instructions ?Recorded fludrocortisone 0.1 mg tablet 0.1 mg PO TID 90 days #270 tabs 08/10/23 carbidopa 25 mg-levodopa 100 mg 1 tab PO TID 90 days #270 tabs 10/20/23 tablet atorvastatin 20 mg tablet 20 mg PO BEDTIME #90 tabs 10/30/23 compression stockings #1 ea 10/30/23 cyanocobalamin (vitamin B-12) 1,000 mcg PO DAILY #90 tabs 10/30/23 1,000 mcg tablet (Vitamin B-12) rasagiline 1 mg tablet 1 mg PO DAILY 90 days #90 tabs 11/20/23 droxidopa 100 mg capsule 100 mg PO TID #90 caps 12/02/23 droxidopa 300 mg capsule 300 mg PO TID 30 days #90 caps 12/02/23 amoxicillin 875 mg-potassium 1 tab PO BID 10 days #20 tabs 01/15/24 clavulanate 125 mg tablet lidocaine 4 % topical patch 1 patch topical DAILY PRN pain #30 02/01/24 (Salonpas (lidocaine)) ea oxycodone 5 mg tablet 5 mg PO Q6H PRN pain #20 tabs 02/01/24 midodrine 10 mg tablet 10 mg PO TID 90 days #270 tabs 02/23/24 Allergies Allergy/AdvReac Type Severity Reaction Status Date / Time No Known Allergies Allergy Verified 03/29/24 09:37 Review of Systems 2 Review of Systems: Pertinent positives and negatives as stated in HPI [facility] Past Medical History Source: nursing notes reviewed Medical History Orthostatic hypotension Hypertension Orthostatic hypotension 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 Atrial fibrillation Prostate cancer Surgical History Status post Mohs surgery Hx of appendectomy Family History Family History Father Alzheimer disease Social History Social History Household Members: Spouse Housing: House Do you presently have visiting nurse or other home services: No Alcohol intake: former Patient Tobacco Use Status: Former Tobacco user Advance Directives: Yes Advance Directives Information Provided: Yes Advance Directives on File: No Advance Directives Date on File: 10/29/23 Do you have a plan to hurt others: No Plan service: No Physical Exam 2 Vital Signs: Vital Signs: Last Vital Signs Temp 97.8 F 03/29/24 11:20 Pulse 82 03/29/24 13:17 Resp 18 03/29/24 13:17 BP 76/40 L 03/29/24 13:17 Pulse Ox 97 03/29/24 11:20 O2 Del Method Room Air 03/29/24 11:20 BMI result Body Mass Index 24.0 VITAL SIGNS: Reviewed. GENERAL: Well developed, well nourished, in no acute distress. HEAD: Normocephalic/atraumatic EYES: PERRLA, EOMI LUNGS: Normal breath sounds. No adventitious sounds or accessory muscle use. SpO2<98> CARDIOVASCULAR: Regular rate and rhythm without noted murmurs ABDOMEN: Soft, non-tender, non-distended with bowel sounds. MUSCULOSKELETAL: No tenderness, deformities, or effusions noted on gross inspection. EXTREMITIES: No cyanosis, clubbing or edema. SKIN: Inspection of the skin reveals no rashes NEUROLOGIC: Alert and oriented x 4. Strength and sensation to light touch were grossly intact x 4. Medications Administered Discontinued Medications Generic Name Dose Route Start Last Admin Trade Name Freq PRN Reason Stop Dose Admin Sodium Chloride 1,000 mls @ 999 mls/hr 03/29/24 13:15 03/29/24 13:54 Ns IV 03/29/24 14:15 999 mls/hr .Q1H1M DREW Administration Medical Decision Making Medical Decision Making [facility] Narrative: 83-year-old male with history and clinical presentation, DD DX: Will rule out intracranial hemorrhage or mass effect, will rule out cervical spine pathology, will rule out right hip fracture. I have reviewed and interpreted all investigations and there is no evidence of infectious leukocytosis, patient has a chronically stable anemia no thrombocytopenia. There is no demonstrate JEAN CLAUDE/electrolyte or liver enzyme derangements. My interpretation of the hip and pelvis x-ray is that there is no evidence of dislocation or fracture, CT of the head negative for intracranial hemorrhage or mass effect and cervical spine does not demonstrate any fracture or subluxation. Official read of CT of the head/neck as well as x-ray of the hip pelvis: There are no acute findings. 1310: Informed by nursing that attempts to ambulate the patient were unsuccessful he became very dizzy and was unable to stand, blood pressure orthostatic and will order fluids. 1316: Also place patient in case management and physical therapy. Will place patient in ED observation. Patient is otherwise medically cleared for further evaluation by case management and physical therapy. Patient placed in physician observation because the patient needed more time for case management and physical therapy evaluation. At the time observation was started the patient's vital signs were stable, patient is alert and oriented, neuro: Nonfocal, CV RRR, lungs clear 1335: PT evaluated and recommends acute rehab. 1432: EKG-normal sinus rhythm, HR-70, no STEMI, NC/QRS/QTC is within normal limits. Differential Diagnosis Differential Diagnoses: The differential diagnosis associated with the presentation includes See above Admission/Observation Consideration of admission/observation: Escalation of care including admission/observation considered Does not meet inpatient level of care Consult Healthcare Provider Management of the patient was discussed with: [employer] Lab Data [facility] Lab Attestation statement: I reviewed the patient's lab results. See above 03/29/24 10:27 03/29/24 10:27 Labs: Lab Results 03/29/24 Range/Units 10:27 WBC 6.0 (4.8-10.8) X10*3/uL RBC 3.10 L (4.60-5.80) X10*6/uL Hgb 10.8 L (14.0-18.0) g/dl Hct 31.6 L (42.0-52.0) % MCV 101.9 H (80.0-98.0) fL MCH 34.8 H (27.0-33.0) pg MCHC 34.2 (31.0-36.0) g/dl RDW 13.2 (11.0-16.0) % Plt Count 134 L (160-400) X10*3/uL MPV 10.9 (9.4-12.4) fL Immature Gran % (Auto) 0.5 H (0.0-0.4) % Neut % (Auto) 79.7 H (45-73) % Lymph % (Auto) 8.9 L (20-40) % [place] % (Auto) 10.1 (2-11) % Eos % (Auto) 0.5 (0-4) % Baso % (Auto) 0.3 (0-2) % Lymph # (Auto) 0.5 L (1.2-4.9) X10*3/uL [place] # (Auto) 0.6 (0.1-1.2) X10*3/uL Eos # (Auto) 0.0 (0.0-0.4) X10*3/uL Baso # (Auto) 0.0 (0.0-0.2) X10*3/uL Abs Immat Gran (auto) 0.03 (0.00-0.03) X10*3/uL Absolute Neuts (auto) 4.8 (2.0-8.3) x10*3/uL Absolute Nucleated RBC 0.000 (0.0-0.012) X10*3/uL Nucleated RBC % (auto) 0.0 (0.0-0.2) /100WBC Hold Blue Top SEE NOTE Sodium 145 (135-145) mmol/L Potassium 3.7 (3.3-5.1) mmol/L Chloride 109 H (96-108) mmol/L Carbon Dioxide 29 (22-29) mmol/L Anion Gap 11 L (12-20) BUN 22 H (9-16) mg/dL Creatinine 1.10 (0.5-1.4) mg/dL Estim Creat Clear Calc 61.2 Estimated GFR > 60 Random Glucose 103 (60-115) mg/dL Calcium 9.0 D (8.4-10.2) mg/dL Total Bilirubin 0.6 (0.0-1.0) mg/dL AST 18 (5-37) U/L ALT < 6 (0-40) U/L Alkaline Phosphatase 90 (39-117) U/L Total Protein 5.9 L (6.5-8.0) g/dL Albumin 3.7 (3.5-5.0) g/dL Independent Interpretation I performed an independent interpretation of an: EKG, Plain X-Ray and CT Scan Interpretation: See above Radiology Impression Discussion of test interpretation with radiology: I have reviewed the radiologist's reading. Radiologist Impression: See above External Record Review External record reviewed: Prior outpatient labs and Outside ED record Discharge Plan Discharge Clinical Impression: Frequent falls, Physical deconditioning Patient Disposition: Still a Patient Prescriptions: No Action fludrocortisone 0.1 mg tablet 0.1 mg PO TID 90 Days Qty: 270 1RF carbidopa-levodopa 25-100 mg tablet 1 tab PO TID 90 Days Qty: 270 1RF rasagiline 1 mg tablet 1 mg PO DAILY 90 Days Qty: 90 1RF midodrine 10 mg tablet 10 mg PO TID 90 Days Qty: 270 1RF Rx Instructions: do not give last dose of day after 6PM or within 4 hrs of bedtime amoxicillin-pot clavulanate 875-125 mg tablet 1 tab PO BID 10 Days Qty: 20 0RF oxycodone 5 mg tablet 5 mg PO Q6H PRN (Reason: pain) Qty: 20 0RF Rx Instructions: Partial Fill upon patient request. lidocaine [Salonpas (lidocaine)] 4 % adhesive patch,medicated 1 patch topical DAILY PRN (Reason: pain) Qty: 30 0RF cyanocobalamin (vitamin B-12) [Vitamin B-12] 1,000 mcg Tablet 1,000 mcg PO DAILY Qty: 90 0RF (DME) compression stockings See Rx Instructions .Route .MEDSUPPLY Qty: 1 2RF Rx Instructions: As directed atorvastatin 20 mg tablet 20 mg PO BEDTIME Qty: 90 0RF clonazepam 0.5 mg tablet 0.5 mg PO BEDTIME Rx Instructions: administer 30 minutes before bedtime. 1-2 tabs Xarelto 20 mg tablet 20 mg PO QPM Rx Instructions: must administer with evening meal potassium supplement PO droxidopa 300 mg capsule 300 mg PO TID 30 Days Qty: 90 6RF Rx Instructions: give consistently with OR without food, upon rising, at midday, late PM/at least 3hrs before bedtime droxidopa 100 mg capsule 100 mg PO TID Qty: 90 6RF Rx Instructions: for total dose of 400mg tid -give consistently with OR without food, upon rising, at midday, late PM/at least 3hrs before bedtime Print Language: Mosotho
[2024-03-29 10:30] LABS: MANUAL DIFF FLAG NO
--- NOTE | 2024-03-29 10:35 | PC.NURSE ---
labs obtained and sent, awaiting CT scan. cleared from c-collar
[2024-03-29 10:54] LABS: Alanine Aminotransferase < 6 U/L (0-40); Albumin Level 3.7 g/dL (3.5-5.0); Alkaline Phosphatase 90 U/L (39-117); Anion Gap 11 (12-20); Aspartate Amino Transferase 18 U/L (5-37); Bilirubin Total 0.6 mg/dL (0.0-1.0); Blood Urea Nitrogen 22 mg/dL (9-16); Carbon Dioxide 29 mmol/L (22-29); Chloride 109 mmol/L (96-108); Creatinine Clr Calc Pharmacy 61.2; Estimated Glomerular Filt Rate > 60; Glucose Random 103 mg/dL (60-115); Potassium 3.7 mmol/L (3.3-5.1); Sodium 145 mmol/L (135-145); Total Protein 5.9 g/dL (6.5-8.0)
[2024-03-29 10:55] LABS: Basophils Percent Auto 0.3 % (0-2); Eosinophils Percent Auto 0.5 % (0-4); Hematocrit 31.6 % (42.0-52.0); Hemoglobin 10.8 g/dl (14.0-18.0); Imm Gran Abs Auto 0.03 X10*3/uL (0.00-0.03); Imm Gran Pct Auto 0.5 % (0.0-0.4); Lymphocytes Absolute Auto 0.5 X10*3/uL (1.2-4.9); Lymphocytes Percent Auto 8.9 % (20-40); Mean Corpuscular HGB Conc 34.2 g/dl (31.0-36.0); Mean Corpuscular Hemoglobin 34.8 pg (27.0-33.0); Mean Corpuscular Volume 101.9 fL (80.0-98.0); Mean Platelet Volume 10.9 fL (9.4-12.4); Monocytes Absolute Auto 0.6 X10*3/uL (0.1-1.2); Monocytes Percent Auto 10.1 % (2-11); Neutrophils Absolute Auto 4.8 x10*3/uL (2.0-8.3); Neutrophils Percent Auto 79.7 % (45-73); Platelet Count 134 X10*3/uL (160-400); Red Cell Distribution Width 13.2 % (11.0-16.0)
[2024-03-29 11:20] VITALS: BP 126/75; PULSE 71; RESP 16; TEMP 36.6; O2SAT 97
--- NOTE | 2024-03-29 11:21 | PC.NURSE ---
resting quietly in room with visitor at bedside. offering no complaints, states no pain when not moving. awaiting ct scan results
--- NOTE | 2024-03-29 13:16 | ECG_ITS ---
Test Reason : A-FIB Blood Pressure : / mmHG Vent. Rate : 070 BPM Atrial Rate : 070 BPM P-R Int : 156 ms QRS Dur : 074 ms QT Int : 448 ms P-R-T Axes : 024 010 031 degrees QTc Int : 483 ms Normal sinus rhythm Normal ECG When compared with ECG of 15-JAN-2024 16:30, Nonspecific T wave abnormality no longer evident in Anterior leads Referred By: Renata Garcia Electronically Signed By:Artur Alarcon
[2024-03-29 13:17] VITALS: BP 76/40; BP 97/57; PULSE 76; PULSE 82; RESP 16; RESP 18
--- NOTE | 2024-03-29 13:18 | PC.NURSE ---
PT was able to transfer to sitting on the edge of bed with min assist of one. He had some dizziness- blood pressure was noted to be 97/57. after resting for 3-4 minutes with standby assist of 2 and the use of a w.walker he was able to tolerate wt bearing bilaterally but became dizzy and hypotensive at 76/40 while standing. He was assisted back to bed and both primary RN and MD were made aware.
[2024-03-29] MEDS: 0.9 % Sodium Chloride 1,000 ML 999 ML IV (13:54)
--- NOTE | 2024-03-29 13:54 | PC.NURSE ---
able to stand with one assist to use urinal w/ no dizziness. IV established, fluids infusing
--- NOTE | 2024-03-29 14:58 | MHC.CM.ED ---
Addendum entered by Domi Brady 03/29/24 16:00: No acceptance from acute rehabs - pt and spouse would like to return to home - declined home PT but will contact PCP should they decide they would like services. Spouse to transport. ED provider aware of d/c plan Original Note: Received ED consult for assessment of d/c needs: pt presents from home w/spouse, no services and uses a transport chair and walker on occasion. Pt resides in a single level home - spouse, Nancy assists as needed. PCP is Og Rodney, HCP copy requested. PT eval supports acute or STR. Discussed options w/pt and spouse including potential out of pocket costs for STR if his secondary policy does not have a rehab benefit. Pt and receptive to acute referrals but were not interested in STR d/t cost. Will await referral determinations and discuss w/pt
[2024-03-29 15:27] VITALS: BP 152/82; PULSE 78; RESP 16; TEMP 36.6; O2SAT 96
[2024-03-29 16:23] VITALS: BP 152/82; PULSE 78; RESP 16; TEMP 36.6; O2SAT 96
== END 2024-03-29 16:23 | disposition home or self-care (01) ==
PROVIDERS: Emergency Provider Student in an Organized Health Care Education/Training Program
DX: S79.911A Unspecified injury of right hip, initial encounter (principal); R26.2 Difficulty in walking, not elsewhere classified; R51.9 Headache, unspecified; M54.2 Cervicalgia; I48.91 Unspecified atrial fibrillation; D64.9 Anemia, unspecified; X58.XXXA Exposure to other specified factors, initial encounter; Y93.9 Activity, unspecified; Y92.89 Other specified places as the place of occurrence of the external cause; Y99.8 Other external cause status; Z91.81 History of falling; Z79.899 Other long term (current) drug therapy
CPT/HCPCS: 36415; 70450; 72125; 73502; 80053; 85025; 93005; 96360; 96361; 97162; 99284; 99285

== ENCOUNTER → 2024-03-29 09:52 | Outpatient (BNV) | payer MEDICARE, BC, SELFPAY | PROVIDERS: Emergency Provider Student in an Organized Health Care Education/Training Program; Visit Provider Radiology Diagnostic Radiology | DX: M25.551 Pain in right hip (principal) | CPT/HCPCS: 73502 ==

== ENCOUNTER → 2024-03-29 13:16 | Outpatient (BNV) | payer MEDICARE, BC, SELFPAY | PROVIDERS: Emergency Provider Student in an Organized Health Care Education/Training Program; Visit Provider Internal Medicine Cardiovascular Disease | DX: I48.91 Unspecified atrial fibrillation (principal) | CPT/HCPCS: 93010 ==

== ENCOUNTER 2024-06-22 11:27 | Outpatient (AMB) | payer MEDICARE, BC, SELFPAY ==
--- NOTE | 2024-06-22 11:30 | A.OFFVIS_ITS ---
Vital Signs 06/22/24 11:32 Height 6 ft 2 in Weight 185 lb BMI 23.7 BP 142/78 H Blood Pressure Location Rt brachial Pulse 72 Pulse Source Pulse Oximeter Pulse Oximetry (%) 96 Oxygen Delivery Method Room Air Intake Visit Reasons: Follow Up Intake Note: patient following up after consult at [facility] on 05/04/24 Allergies No Known Allergies Allergy (Verified 06/22/24 11:33) HPI Comments Details: 83-yr-old male presents for f/u visit.He still has frequent falls . He was [facility] at [facility] and his droxidopa was increased to 600-600-400 and he has been doing well since then .No episodes of passing out since then. He is drinking more fluids- now drinking a full glass of water w/ his meds. . Pt's current PD medication regimen: CD-LD 25-100mg 1 tab tid, Rasagiline 1mg qd. Droxidopa 600mg qam qnoon 400mg q evening fludrocortisone 0.2mg qam 0.1 mg q noon midodrine 10mg tid (8am and 12pm) ADL's: Ind. Usually showers when is home. Swallowing: No issues Drooling: At night- at times Orthostatic lightheadedness: as above Constipation: None Freezing: None Stiffness: None Tremor: Not noticing much tremor Hallucinations: None Memory: Still some Short term lapses and more difficulty w/ calculations. Still playing card games- and doing well. Sleep: Still waking up at night. Exercise: Not much exercise. Plans to try swimming in the small pool at the [facility]. [facility] Medical History Orthostatic hypotension Hypertension Orthostatic hypotension 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 Atrial fibrillation Prostate cancer Surgical History Status post Mohs surgery Hx of appendectomy Family History Father Alzheimer disease Social History Household Members: Spouse Housing: House Do you presently have visiting nurse or other home services: No Alcohol intake: former Patient Tobacco Use Status: Former Tobacco user Advance Directives Date on File: 10/29/23 service: No Physical Exam Const General: cooperative and no acute distress Resp Effort & Inspection: normal respiratory effort and able to speak in complete sentences Neuro Other: General: A&O x's 3 Expression: Decreased expression and blink Voice: Soft Tremor: None Tone: Mild RUE tone Dyskinesia: None today FFM: Bradykinesia- more so on right Foot taps: Mild bradykinesia Gait: Slow to stand, decreased arm swing- no chorea in hands, short steps, steady. 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 Continue Clonazepam 0.5mg qhs- we can manage this if needed. Midodrine from 10mg tid Fludrocortisone 0.1mg 2 tabs qam and 1 tab q noon Droxidopa 600mg bid 400 mg q evening Continue increased fluids w/ electrolyte supplement such as liquid IV, gatorade/powerade. Compression stockings, increase salt , take time when he changes position from sitting to standing position ? Medications: Discontinued droxidopa daily in evening. take with 300mg cap to total 400mg Discontinued Reason: Patient no longer taking 100 mg PO DAILY 30 days 30 caps 6RF Coding Level of Care Code Est Pt Level 4 (55385) Complex EM visit Add On G2211 Diagnoses Parkinson's disease without dyskinesia G20.A1 Orthostatic hypotension I95.1 REM sleep behavior disorder G47.52 Acalculia R48.8
[2024-06-22 11:32] VITALS: BP 142/78; PULSE 72; O2SAT 96; BMI 23.7
--- OUTSIDE RECORDS SUMMARY | 2024-06-22 14:02 | XMS_ITS | Data Portability ---
Author Organization [facility], , [facility] Address [address] [place] [address] Care Team Providers Care Rifle Case Repairer Name Role Phone ARSENIO MOY Cosmetics Presser DIANNA MCGUIRE Meter Tester VIVI RODNEY Primary Care Provider BERTA RO OTHER KAEL CARDOZO OTHER Assessment No assessment recorded. Plan of Treatment Reminders Order Date Submit Date Provider Last Modified By Organization Details Last Modified Time Details Appointments Follow Up, 2024 10:15A M Vivi Rodney MD Not available Not available Not available Lab culture, urine 2023 024 [facility], [address] [place] [address], [id number], 01/31/2024 00:33:00 CBC 2023 024 [facility], [address] [place] [address], [id number], 12/17/2023 12:15:45 CMP, serum or plasma 2023 024 [facility], [address] [place] [address], [id number], 12/17/2023 14:17:17 culture, urine 2023 024 [facility], [address] [place] [address], [id number], 12/20/2023 01:23:01 Referral None recorded. Procedures None recorded. Surgeries None recorded. Imaging XR, sternum - pain after fall 2023 [facility]), [address], [place], [id number], 02/01/2024 17:44:34 XR, ribs, bilateral - pain after fall 2023 024 [facility]), [address] [place], [address], 02/01/2024 17:25:55 Medication Orders tramadol 50 mg tablet 2023 025 [id number], [address], [place], [phone], 04/15/2024 10:11:06 potassium chloride ER 10 mEq tablet,ex tended release 2023 024 [id number], [address], [place], [phone], 01/29/2024 11:06:30 potassium chloride ER 10 mEq tablet,ex tended release 2023 024 [id number], [address], [place], [phone], 12/16/2023 15:31:41 Patient TargetsNo targets recorded. Patient Instructions Encounter Date Encounter Id Patient Instructions Last Modified By Organization Details Last Modified Time 02/01/2024 [id number] I am aware of [facility] inpatient facility discharge medications, the medication list above has been reconciled with those medications and reflects my understanding of an up to date medication list for this patient. [email or web address] Not available 02/01/2024 11:30:46 02/18/2024 [id number] I am aware of [facility] inpatient facility discharge medications, the medication list above has been reconciled with those medications and reflects my understanding of an up to date medication list for this patient. [email or web address] Not available 02/18/2024 14:03:50 04/20/2024 [id number] I am aware of th e inpatient facility discharge medications, the medication list above has been reconciled with those medications and reflects my understanding of an up to date medication list for this patient. [email or web address] Not available 05/04/2024 10:26:23 Reason for Referral None Reported. Results Created Date Observation Date Name Description Value Unit Range Abnormal Flag Note LastModifiedBy Organization Detail LastModifiedTime 11/17/19 24 11/17/2023 BASIC METAB OLIC PANEL glucose 138 mg/dL 70-100 high Not Available [address], [address], 11/17/2023 14:10:34 11/17/19 24 11/17/2023 BASIC METAB OLIC PANEL BUN 20 mg/dL 7-18 high Not Available [address], [address], 11/17/2023 14:10:34 11/17/19 24 11/17/2023 BASIC METAB OLIC PANEL creatinine 1.3 mg/dL 0.8-1. 3 Not Available [address], [address], 11/17/2023 14:10:34 11/17/19 24 11/17/2023 BASIC METAB OLIC PANEL B/C 15.4 ratio Not Available [address], [address], 11/17/2023 14:10:34 11/17/19 24 11/17/2023 BASIC METAB OLIC PANEL GFR 55.2 mL/mi n abnormal >=60m L/min - Frances l or midly reduc ed <60mL /min- Decre ased kidne y funct ion <15mL /min - Kidne y failu re [facility] calcu lates estim ated Glome rular Filtr ation Rate (eGFR ) using the Chron ic Kidne y Disea se Epide miolo gy Colla borat ion (CKD- EPI) Equat ion (Macarena r et. al 2020) as recom bismark d by the Natio nal Kidne y Found ation . eGFR is based on age, serum creat inine , and sex. CKD-E PI does not calcu late eGFR by race, does not apply to child santos (age <18 years ), and shoul d not be used in pregn fabian. Not Available [address], [address], 11/17/2023 14:10:34 11/17/19 24 11/17/2023 BASIC METAB OLIC PANEL sodium 146 mmol/ L 136-14 5 high CWP=C onsis tent with previ ous. Not Available [address], [address], 11/17/2023 14:10:34 11/17/19 24 11/17/2023 BASIC METAB OLIC PANEL potassium 3.3 mmol/ L 3.5-5. 1 low CWP=C onsis tent with previ ous. Not Available [address], [address], 11/17/2023 14:10:34 11/17/19 24 11/17/2023 BASIC METAB OLIC PANEL chloride 105 mmol/ L 96-107 Not Available [address], [address], 11/17/2023 14:10:34 11/17/19 24 11/17/2023 BASIC METAB OLIC PANEL anion gap 8.1 5.0-15 .0 Not Available [address], [address], 11/17/2023 14:10:34 11/17/19 24 11/17/2023 BASIC METAB OLIC PANEL CO2 33 mmol/ L 21-32 high Not Available [address], [address], 11/17/2023 14:10:34 11/17/19 24 11/17/2023 BASIC METAB OLIC PANEL calcium 8.7 mg/dL 8.5-10 .3 Not Available [address], [address], 11/17/2023 14:10:34 11/24/19 24 11/25/2023 BASIC METAB OLIC PANEL glucose 123 mg/dL 70-100 high Not Available [address], [address], 11/25/2023 11:03:34 11/24/19 24 11/25/2023 BASIC METAB OLIC PANEL BUN 18 mg/dL 7-18 Not Available [address], [address], 11/25/2023 11:03:34 11/24/19 24 11/25/2023 BASIC METAB OLIC PANEL creatinine 1.3 mg/dL 0.8-1. 3 Not Available [address], [address], 11/25/2023 11:03:34 11/24/19 24 11/25/2023 BASIC METAB OLIC PANEL B/C 13.8 ratio Not Available [address], [address], 11/25/2023 11:03:34 11/24/19 24 11/25/2023 BASIC METAB OLIC PANEL GFR 55.2 mL/mi n abnormal >=60m L/min - Frances l or midly reduc ed <60mL /min- Decre ased kidne y funct ion <15mL /min - Kidne y failu re [facility] calcu lates estim ated Glome rular Filtr ation Rate (eGFR ) using the Chron ic Kidne y Disea se Epide miolo gy Colla borat ion (CKD- EPI) Equat ion (Macarena r et. al 2020) as recom bismark d by the Natio nal Kidne y Found ation . eGFR is based on age, serum creat inine , and sex. CKD-E PI does not calcu late eGFR by race, does not apply to child santos (age <18 years ), and shoul d not be used in pregn fabian. Not Available [address], [address], 11/25/2023 11:03:34 11/24/19 24 11/25/2023 BASIC METAB OLIC PANEL sodium 148 mmol/ L 136-14 5 high Not Available [address], [address], 11/25/2023 11:03:34 11/24/19 24 11/25/2023 BASIC METAB OLIC PANEL potassium 3.3 mmol/ L 3.5-5. 1 low Not Available [address], [address], 11/25/2023 11:03:34 11/24/19 24 11/25/2023 BASIC METAB OLIC PANEL chloride 105 mmol/ L 96-107 Not Available [address], [address], 11/25/2023 11:03:34 11/24/19 24 11/25/2023 BASIC METAB OLIC PANEL anion gap 9.2 5.0-15 .0 Not Available [address], [address], 11/25/2023 11:03:34 11/24/19 24 11/25/2023 BASIC METAB OLIC PANEL CO2 34 mmol/ L 21-32 high Not Available [address], [address], 11/25/2023 11:03:34 11/24/19 24 11/25/2023 BASIC METAB OLIC PANEL calcium 8.8 mg/dL 8.5-10 .3 Not Available [address], [address], 11/25/2023 11:03:34 12/08/19 24 12/10/2023 BASIC METAB OLIC PANEL glucose 92 mg/dL 70-100 Not Available [address], [address], 12/10/2023 10:38:21 12/08/19 24 12/10/2023 BASIC METAB OLIC PANEL BUN 18 mg/dL 7-18 Not Available [address], [address], 12/10/2023 10:38:21 12/08/19 24 12/10/2023 BASIC METAB OLIC PANEL creatinine 1.3 mg/dL 0.8-1. 3 Not Available [address], [address], 12/10/2023 10:38:21 12/08/19 24 12/10/2023 BASIC METAB OLIC PANEL B/C 13.8 ratio Not Available [address], [address], 12/10/2023 10:38:21 12/08/19 24 12/10/2023 BASIC METAB OLIC PANEL GFR 55.2 mL/mi n abnormal >=60m L/min - Frances l or midly reduc ed <60mL /min- Decre ased kidne y funct ion <15mL /min - Kidne y failu re [facility] calcu lates estim ated Glome rular Filtr ation Rate (eGFR ) using the Chron ic Kidne y Disea se Epide miolo gy Colla borat ion (CKD- EPI) Equat ion (Macarena r et. al 2020) as recom bismark d by the Natio nal Kidne y Found ation . eGFR is based on age, serum creat inine , and sex. CKD-E PI does not calcu late eGFR by race, does not apply to child santos (age <18 years ), and shoul d not be used in pregn fabian. Not Available [address], [address], 12/10/2023 10:38:21 12/08/19 24 12/10/2023 BASIC METAB OLIC PANEL sodium 146 mmol/ L 136-14 5 high Not Available [address], [address], 12/10/2023 10:38:21 12/08/19 24 12/10/2023 BASIC METAB OLIC PANEL potassium 3.3 mmol/ L 3.5-5. 1 low CWP=C onsis tent with previ ous. Not Available [address], [address], 12/10/2023 10:38:21 12/08/19 24 12/10/2023 BASIC METAB OLIC PANEL chloride 104 mmol/ L 96-107 Not Available [address], [address], 12/10/2023 10:38:21 12/08/19 24 12/10/2023 BASIC METAB OLIC PANEL anion gap 10.7 5.0-15 .0 Not Available [address], [address], 12/10/2023 10:38:21 12/08/19 24 12/10/2023 BASIC METAB OLIC PANEL CO2 31 mmol/ L 21-32 Not Available [address], [address], 12/10/2023 10:38:21 12/08/19 24 12/10/2023 BASIC METAB OLIC PANEL calcium 8.6 mg/dL 8.5-10 .3 Not Available [address], [address], 12/10/2023 10:38:21 12/08/19 24 12/10/2023 LIPID PANEL cholesterol 170 mg/dL <200 mg/dl Renate able 200-2 39 mg/dl Borde rline High >240 mg/dl High Not Available [address], [address], 12/10/2023 10:38:22 12/08/19 24 12/10/2023 LIPID PANEL triglyceride s 60 mg/dL <150 mg/dL Frances l 150-1 99 mg/dL Borde rline High 200-4 99 mg/dL High >500 mg/dL Very High Not Available [address], [address], 12/10/2023 10:38:22 12/08/19 24 12/10/2023 LIPID PANEL direct HDL 83 mg/dL <40 mg/dl - Major Risk for CHD >60 mg/dl - Negat harris Risk for CHD Not Available [address], [address], 12/10/2023 10:38:22 12/08/19 24 12/10/2023 DIREC T LDL direct LDL 64 mg/dL RISK CATEG ORY LDL GOAL _ CHD or CHD Risk Equiv alent s <100 mg/dl (10-y ear risk >20%) 2+ Risk Facto rs <130 mg/dl (10-y ear risk <= 20%) 0-1 Risk Facto r? <160 mg/dl ? Almos t all peopl e with 0-1 risk facto r have a 10 year risk <10%, thus 10 year risk asses ment in peopl e with 0-1 risk facto r is not luz parr. Not Available [address], [address], 12/10/2023 10:38:22 12/16/19 24 12/17/2023 CBC WBC 4.59 K/? ? ?L 4.23-9 .07 Not Available [address], [address], 12/17/2023 12:15:45 12/16/19 24 12/17/2023 CBC RBC 3.50 M/? ? ?L 4.63-6 .08 low Not Available [address], [address], 12/17/2023 12:15:45 12/16/1912/17/2023 CBC HGB 12.0 g/dL 13.7-1 7.5 low Not Available [address], [address], 12/17/2023 12:15:45 12/16/192024 CBC HCT 38.9 % 40.1-5 1.0 low Not Available [address], [address], 12/17/2023 12:15:45 12/16/19 24 12/17/2023 CBC MCV 111.1 fL 79.0-9 2.2 high SREV= Slide revie wed by techn [facility]. Not Available [address], [address], 12/17/2023 12:15:45 12/16/19 24 12/17/2023 CBC MCH 34.3 pg 25.7-3 2.2 high Not Available [address], [address], 12/17/2023 12:15:45 12/16/19 24 12/17/2023 CBC MCHC 30.8 g/dL 32.3-3 6.5 low Not Available [address], [address], 12/17/2023 12:15:45 12/16/1912/17/2023 CBC plt 158 K/? ? ?L 163-33 7 low Not Available [address], [address], 12/17/2023 12:15:45 12/16/19 24 12/17/2023 CBC MPV 11.8 fL 9.4-12 .4 Not Available [address], [address], 12/17/2023 12:15:45 12/16/19 24 12/17/2023 CBC neut% 65.3 % 34.0-6 7.9 Not Available [address], [address], 12/17/2023 12:15:45 12/16/19 24 12/17/2023 CBC neut# 3.00 1.78-5 .38 Not Available [address], [address], 12/17/2023 12:15:45 12/16/19 24 12/17/2023 CBC lymph % 21.6 % 21.8-5 3.1 low Not Available [address], [address], 12/17/2023 12:15:45 12/16/19 24 12/17/2023 CBC lymph # 0.99 K/? ? ?L 1.32-3 .57 low Not Available [address], [address], 12/17/2023 12:15:45 12/16/19 24 12/17/2023 CBC mono% 10.5 % 5.3-12 .2 Not Available [address], [address], 12/17/2023 12:15:45 12/16/19 24 12/17/2023 CBC mono# 0.48 0.30-0 .82 Not Available [address], [address], 12/17/2023 12:15:45 12/16/19 24 12/17/2023 CBC eo% 1.7 % 0.8-7. 0 Not Available [address], [address], 12/17/2023 12:15:45 12/16/19 24 12/17/2023 CBC eo# 0.08 0.04-0 .54 Not Available [address], [address], 12/17/2023 12:15:45 12/16/19 24 12/17/2023 CBC baso% 0.9 % 0.2-1. 2 Not Available [address], [address], 12/17/2023 12:15:45 12/16/19 24 12/17/2023 CBC baso# 0.04 0.00-0 .08 Not Available [address], [address], 12/17/2023 12:15:45 12/16/19 24 12/17/2023 CBC RDW-CV 13.2 % 11.6-1 4.4 Not Available [address], [address], 12/17/2023 12:15:45 12/16/19 24 12/17/2023 CBC Ig% 0.000 % 0.000- 1.500 Ig % >0.5 Indic ates possi ble Left Shift Not Available [address], [address], 12/17/2023 12:15:45 12/16/19 24 12/17/2023 CBC Ig# 0.000 0.000- 0.093 Not Available [address], [address], 12/17/2023 12:15:45 12/16/19 24 12/17/2023 CBC NRBC% 0.0 % 0.0-0. 2 Not Available [address], [address], 12/17/2023 12:15:45 12/16/19 24 12/17/2023 CBC NRBC# 0.000 0.000- 0.012 Not Available [address], [address], 12/17/2023 12:15:45 12/16/19 24 12/17/2023 COMP. METAB OLIC PANEL glucose 104 mg/dL 70-100 high Not Available [address], [address], 12/17/2023 14:17:17 12/16/19 24 12/17/2023 COMP. METAB OLIC PANEL BUN 23 mg/dL 7-18 high Not Available [address], [address], 12/17/2023 14:17:17 12/16/19 24 12/17/2023 COMP. METAB OLIC PANEL creatinine 1.3 mg/dL 0.8-1. 3 Not Available [address], [address], 12/17/2023 14:17:17 12/16/19 24 12/17/2023 COMP. METAB OLIC PANEL B/C 17.7 ratio Not Available [address], [address], 12/17/2023 14:17:17 12/16/19 24 12/17/2023 COMP. METAB OLIC PANEL GFR 55.2 mL/mi n abnormal >=60m L/min - Frances l or midly reduc ed <60mL /min- Decre ased kidne y funct ion <15mL /min - Kidne y failu re [facility] calcu lates estim ated Glome rular Filtr ation Rate (eGFR ) using the Chron ic Kidne y Disea se Epide miolo gy Colla borat ion (CKD- EPI) Equat ion (Macarena r et. al 2020) as recom bismark d by the Natio nal Kidne y Found ation . eGFR is based on age, serum creat inine , and sex. CKD-E PI does not calcu late eGFR by race, does not apply to child santos (age <18 years ), and shoul d not be used in pregn fabian. Not Available [address], [address], 12/17/2023 14:17:17 12/16/19 24 12/17/2023 COMP. METAB OLIC PANEL sodium 148 mmol/ L 136-14 5 high Not Available [address], [address], 12/17/2023 14:17:17 12/16/19 24 12/17/2023 COMP. METAB OLIC PANEL potassium 3.6 mmol/ L 3.5-5. 1 Not Available [address], [address], 12/17/2023 14:17:17 12/16/19 24 12/17/2023 COMP. METAB OLIC PANEL chloride 106 mmol/ L 96-107 Not Available [address], [address], 12/17/2023 14:17:17 12/16/19 24 12/17/2023 COMP. METAB OLIC PANEL anion gap 10.0 5.0-15 .0 Not Available [address], [address], 12/17/2023 14:17:17 12/16/19 24 12/17/2023 COMP. METAB OLIC PANEL CO2 32 mmol/ L 21-32 Not Available [address], [address], 12/17/2023 14:17:17 12/16/19 24 12/17/2023 COMP. METAB OLIC PANEL calcium 8.5 mg/dL 8.5-10 .3 Not Available [address], [address], 12/17/2023 14:17:17 12/16/19 24 12/17/2023 COMP. METAB OLIC PANEL total protein 6.4 g/dL 6.4-8. 2 Not Available [address], [address], 12/17/2023 14:17:17 12/16/19 24 12/17/2023 COMP. METAB OLIC PANEL albumin 3.8 g/dL 3.4-5. 0 Not Available [address], [address], 12/17/2023 14:17:17 12/16/19 24 12/17/2023 COMP. METAB OLIC PANEL globulin 2.6 g/dL Not Available [address], [address], 12/17/2023 14:17:17 12/16/19 24 12/17/2023 COMP. METAB OLIC PANEL A/G 1.5 ratio 0.8-2. 0 Not Available [address], [address], 12/17/2023 14:17:17 12/16/19 24 12/17/2023 COMP. METAB OLIC PANEL total bilirubin 0.50 mg/dL 0.00-1 .00 Not Available [address], [address], 12/17/2023 14:17:17 12/16/19 24 12/17/2023 COMP. METAB OLIC PANEL AST 11 U/L 0-37 Not Available [address], [address], 12/17/2023 14:17:17 12/16/19 24 12/17/2023 COMP. METAB OLIC PANEL ALT 13 U/L 6-63 Not Available [address], [address], 12/17/2023 14:17:17 12/16/19 24 12/17/2023 COMP. METAB OLIC PANEL alk. phos. 101 U/L 50-136 Not Available [address], [address], 12/17/2023 14:17:17 12/17/19 24 12/20/2023 CULTU RE, URINE , ROUTI NE culture, urine, routine CULTU RE, URINE , ROUTI NE Micro Numbe r: [id number] Test Statu s: Final Speci men Sourc e: Urine Speci men Quali ty: Adequ ate Resul t: Mixed genit al laura isola stephanie. These super ficia l bacte chica are not indic ative of a urina ry tract infec tion. No furth er organ ism ident ifica tion is warra nted on this speci men. If clini tess indic ated, recol lect clean -catc h, mid-s tream urine and trans tin immed iatel y to Urine Cultu re Trans port Tube. Not Available [facility] [place] [facility] [address], [place], [address], 12/20/2023 01:23:01 01/29/20 24 01/31/2024 CULTU RE, URINE , ROUTI NE culture, urine, routine CULTU RE, URINE , ROUTI NE Micro Numbe r: [id number] Test Statu s: Final Speci men Sourc e: Urine Speci men Quali ty: Adequ ate Resul t: Mixed genit al laura isola stephanie. These super ficia l bacte chica are not indic ative of a urina ry tract infec tion. No furth er organ ism ident ifica tion is warra nted on this speci men. If clini tess indic ated, recol lect clean -catc h, mid-s tream urine and trans tin immed iatel y to Urine Cultu re Trans port Tube. Not Available [facility] [place] [facility] [address], [place], [address], 01/31/2024 00:33:00 12/18/19 24 12/18/2023 trans -thor acic echoc ardio gram (TTE) (PROC ) No observ ation record ed. [email or web address] [facility] [address], [place], [address], 12/25/2023 08:23:25 01/20/20 24 01/11/2024 cardi ac telem etry No observ ation record ed. [email or web address] [facility] - [address], [place], [address], 01/21/2024 08:35:51 02/01/20 24 02/01/2024 XR, ribs, bilat eral CLINIC AL HISTOR Y: Bilate ral anteri or rib pain after a fall TECHNI QUE: At least 3 views of both ribs were obtain ed. COMPAR DIPESH: 022 FINDIN GS: There is no defini te rib fractu re. There is questi onable cortic al irregu larity of the left sixth and sevent h ribs. Fractu res of the left sevent h and eighth ribs were sugges stephanie on the prior study. The curren t findin gs could repres ent old injuri es. The old eighth rib fractu re sugges stephanie on the prior study is not apprec iated. There is no pneumo thorax or effusi on. IMPRES ALIZA: Probab le old, healed left sixth and sevent h rib fractu res. If there is furthe r concer n, follow -up imagin g should be consid ered in 7-10 days. Juve cordova Physic hardy: Sunita Neal ms [id number] [facility] (Imaging) [address], [place], [address], 02/03/2024 16:02:18 02/01/20 24 02/01/2024 XR, dozier um CLINIC AL HISTOR Y: Sterna l pain and chest pain after a fall. TECHNI QUE: Obliqu e view and latera l view of the sternu m obtain ed. COMPAR DIPESH: None. FINDIN GS: The visibl e portio ns of the sternu m are intact . There is minima l cortic al irregu larity of the right sterno clavic ular joint. The joint space is not signif icantl y narrow ed. No fractu res are visual ized. IMPRES ALIZA: Minima l right sterno clavic ular joint degene rative . No acute bone injury . Juve cordova Physic hardy: Sunita Neal ms [id number] [facility] ([facility]) [address], [place], [address], 02/03/2024 16:02:18 06/18/19 25 05/31/2024 imagi ng/di agnos tic resul t No observ ation record ed. [address] [facility] [place] [address] [address], [place], [address], 06/21/2024 12:19:20 06/21/19 25 05/27/2024 CT, heart No observ ation record ed. [address] [facility] [address], [place], [address], 06/21/2024 12:19:00 Result Notes None recorded. Problems Name Problem SNOMED Code Status Onset Date Resolution Date Notes Provider Name and Address Organization Details Recorded Time Parkinso n's disease 84010133 Active FOllowed by Dr. 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 Vivi Rodney MD [address] [place] [address], [phone] , [facility] 2 09:08:22 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 Vivi Rodney MD [address] [place] [address], [phone] , [facility] 2 09:08:40 Joint pain in ankle and foot Completed 12/17/2010 Not Available [facility] 3 03:03:49 Cough 06246566 Completed 12/17/2010 Not Available [facility] 3 03:03:49 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 3 03:03:49 Hemosper carolynn 39524004 Completed 200507/25/2013 Barry Villareal MD [address] [place] [address], [address] , [facility] 4 12:05:08 Low back pain 180575023 Completed 200412/17/[address] [facility] 3 03:03:49 Pain in limb 00121485 Completed 200412/17/[address] [facility] 3 03:03:49 Dizzines s 889495731 Completed 200712/17/2010 Not Available [facility] 3 03:03:49 Malaise and fatigue 214898691 Completed 12/17/[address] 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 [facility] 2022 Vivi Rodney MD [address] [place] [address], [address] , [facility] 3 09:47:41 Transien t cerebral ischemia 915571576 Active 2023 [facility] [place] Kael gabriel, [facility] 4 12:47:58 Hypokale carolynn 67524781 Active 2023 Vivi Rodney MD [address] [place] [address], [address] , [facility] 4 09:05:04 Fracture of sternum 19281915 Active 2023 [facility] [place] Kael Ringer null, [facility] 4 14:04:39 Fracture of rib [id number] Active 2023 3rd, 4th anterior rib [facility] [place] Kael Ringer null, [facility] 4 14:05:44 Fracture of thoracic spine [id number] Active 2023 T12 [facility] [place] Kael Ringer null, [facility] 4 14:06:08 Nodule of lung [id number] Active 2024 Vivi Rodney MD [address] [place] [address], [id number] , [facility] [place] 5 11:09:36 Problem Notes None recorded. Procedures Surgical History Date Name Laterality Status Provider Name and Address Organization Details Recorded Time 04/20/19 25 Post hospital/SNF follow-up/Transiti onal Care completed Roxana Oliva [facility] [facility] 14:30:19 02/18/20 24 Post hospital/SNF follow-up/Transiti onal Care completed Roxana Oliva [facility] 02/18/2024 14:03:50 02/01/20 24 Post hospital/SNF follow-up/Transiti onal Care completed Roxana Oliva [facility] 02/01/2024 11:30:46 11/06/19 24 Post hospital/SNF follow-up/Transiti onal Care completed Roxana Oliva [facility] 11/05/2023 11:22:48 10/07/19 23 Post hospital/SNF follow-up/Transiti onal Care completed Juliana Sarmiento MA [facility] 10/06/2022 16:49:53 08/01/19 23 Medicare Wellness Visit completed Roxana Oliva [facility] 07/30/2022 10:03:49 08/23/19 22 Physical Activity Counselling completed Dary Phan, PT [address] [place], [address], [facility] 08/22/2021 09:09:45 08/23/19 22 [id number]: PT Re-Eval completed Dary Phan PT [address] [place], [address], [facility] 08/22/2021 09:10:03 08/23/19 22 Treatment and Advice completed Dary Phan, PT [address] [place], [address], [facility] 08/22/2021 11:31:39 07/30/19 22 Medicare Wellness Visit completed Mckenna Haywood MA [facility] 07/26/2021 13:59:50 07/30/19 22 Alcohol use screening completed Mckenna Haywood MA [facility] 07/26/2021 13:59:50 07/30/19 22 Cardiovascular disease risk reduction counseling completed Mckenna Haywood MA [facility] 07/26/2021 13:59:50 06/18/19 22 [id number]: Therapeutic Exercise cancelled Dary Phan, PT [address] [place], [address], [facility] 06/17/2021 09:48:56 06/18/19 22 Treatment and Advice cancelled Dary Phan, PT [address] [place], [address], [facility] 06/17/2021 09:48:20 05/14/19 22 Physical Activity Counselling completed Dary Phan, PT [address] [place], [address], [facility] 05/14/2021 08:25:13 05/14/19 22 [id number]: PT Eval Low Complexity completed Dary Phan, PT [address] [place], [address], [facility] 05/16/2021 14:29:17 05/14/19 22 Treatment and Advice completed Dary Phan, PT [address] [place], [address], [facility] 05/14/2021 13:59:53 05/04/19 21 Medicare Wellness Visit completed Leighann Goldstein CMA [facility] 05/04/2020 10:41:35 05/04/19 21 prevention-cardiov ascular risk reduction counseling completed Leighann Goldstein [facility] 05/04/2020 10:41:35 05/04/19 21 prevention-annual alcohol misuse screening completed Leighann Goldstein [facility] 05/04/2020 10:41:35 04/07/19 20 Medicare Wellness Visit completed Cathi Feliz MA [facility] 04/07/2019 14:34:22 04/05/20 18 Medicare Wellness Visit completed Antonina Raines [facility] 04/05/2018 14:15:44 07/28/19 18 Post hospital/SNF follow-up/Transiti onal Care completed Priscilla Chao [facility] 07/27/2017 16:29:52 07/24/19 18 Post hospital/SNF follow-up/Transiti onal Care completed Priscilla Chao [facility] 07/23/2017 13:41:54 03/06/20 17 Medicare Wellness Visit completed Priscilla Chao [facility] 03/06/2017 14:39:02 02/22/20 16 Medicare Wellness Visit completed Sirena Sue MA [facility] 02/22/2016 16:03:02 07/28/19 15 Medicare Wellness Visit completed Sonia Pollard MA [facility] 07/27/2014 11:25:41 07/28/19 15 Cerumen Removal completed Olive Aguilar RN [facility] 07/27/2014 12:42:24 07/26/19 14 Medicare Wellness Visit completed Barb Heredia MA [facility] 07/25/2013 11:57:17 05/26/19 13 Medicare Wellness Visit completed Sirena Sue MA [facility] 05/26/2012 15:24:43 05/12/19 03 completed Not Available [facility] 02/20/2011 06:05:52 Appendectomy completed Not Available [facility] 02/20/2011 06:05:52 left atrial appendage closure completed Vivi Rodney MD [address] [place] [address], [phone], [facility] 04/20/2024 12:12:41 Imaging Results Imaging Date Name Status LastModified by Organization Details LastModified Time 12/18/2023 trans-thoracic echocardiogram (TTE) (PROC) completed [address] [facility] [address], [place], [address], 12/25/2023 08:23:25 01/11/2024 cardiac telemetry completed [address] [facility] [address] [facility], [place], [address], 01/21/2024 08:35:51 02/01/2024 XR, ribs, bilateral completed [address] (Imaging) [address], [place], [id number], 02/03/2024 16:02:18 02/01/2024 XR, sternum completed [address] (Imaging) [address], [place], [id number], 02/03/2024 16:02:18 05/31/2024 imaging/diagnosti c result active [address] [facility] [address], [place], [address], 06/21/2024 12:19:20 05/27/2024 CT, heart active [address], [place], [address], 06/21/2024 12:19:00 Procedure Notes None recorded. Medical Equipment None Reported. Allergies No known drug allergies Medications Name Sig Start Date Stop Date Status Note LastModified by Organization Details LastModified Time atorvasta tin 40 mg tablet Take 1 tablet every day by oral route. 11/05 completed [facility] Not Available Not Available Not Available doxycycli ne hyclate 100 mg capsule Take 1 capsule twice a day by oral route for 14 days. 04/07 completed Not Available Not Available Not Available atorvasta tin 20 mg tablet TAKE 1 TABLET BY MOUTH AT BEDTIME 01/28 completed 01/19/20 24- Not taking, per , JJ D/C TR/RMA Not Available Not Available Not Available clonazepa m 0.5 mg tablet TAKE 1-2 TABLETS BY MOUTH EVERY NIGHT AT BEDTIME NEEDED 2024 active Not Available Not Available Not Avai lable clonazepa m 1 mg tablet TAKE 1/2 TO 1 TABLET BY MOUTH AT BEDTIME NEEDED 05/04 completed 05/04/20 no longer taking/m lb Not Available Not Available Not Available midodrine 5 mg tablet TAKE 1 TABLET BY MOUTH THREE TIMES DAILY. DO NOT GIVE LAST DOSE OF DAY AFTER 6 PM OR WITHIN 4 HOURS OF BEDTIME 04/20 completed Not Available Not Available Not Available cyanocoba michelle (vit B-12) 1,000 mcg tablet TAKE 1 TABLET BY MOUTH EVERY DAY 02/02 completed D/C per pt Not Available Not Available Not Available potassium chloride ER 10 mEq tablet,ex tended release TAKE 2 TABLETS BY MOUTH EVERY DAY active Not Available Not Available No t Available clopidogr el 75 mg tablet Take 1 tablet every day by oral route. 2024 active [facility] D/C Not Available Not Available Not Avai lable sildenafi l 25 mg tablet TAKE 1 TABLET BY MOUTH 1 2 HOURS BEFORE SEXAUL ACTIVITY . IF NO EFFECT MAY TAKE 2 TAB. 03/13 completed 05/04/20 no longer taking/m lb Not Available Not Available Not Available doxycycli ne monohydra te 100 mg tablet TAKE 2 TABLETS BY MOUTH ONCE 09/24 completed Not Available Not Available Not Available tramadol 50 mg tablet TAKE 1 TABLET BY MOUTH EVERY 6 HOURS NEEDED FOR SEVERE PAIN 04/15 completed finished Not Available Not Available Not Available ciclopiro x 8 % topical solution APPLY TO THE AFFECTED AREA ONCE DAILY PREFERAB LY AT BEDTIME OR 8 HOURS BEFORE WASHING 01/18 completed Not Available Not Available Not Available cephalexi n 500 mg capsule TAKES 1 CAP 4 X DAY FOR 10 DAYS 01/30 completed Not Available Not Available Not Available Keflex 500 mg tablet Take 1 capsule every 6 hours by oral route for 10 days. 10/10 completed [facility] D/C, per pt Not Available Not Available Not Available pramipexo le 0.125 mg tablet TAKE 1 TABLET BY MOUTH FOUR TIMES DAILY 01/30 completed Not taking at this time 01/30/23 JF Not Available Not Available Not Available diltiazem CD 120 mg capsule,e xtended release 24 hr Take 1 capsule every day by oral route. 04/07 completed Not Available Not Available Not Available mupirocin 2 % topical ointment APPLY TOPICALL Y TO SURGICAL SITE TWICE DAILY FOR 7 TO 14 DAYS 09/27 completed Not Available Not Available Not Available midodrine 2.5 mg tablet TAKE 1 TABLET BY MOUTH TWICE DAILY. DO NOT GIVE LAST DOSE OF DAY AFTER 6 PM OR WITHIN 4 HOURS OF BEDTIME 07/30 completed Not Available Not Available Not Available carbidopa 25 mg-levodo pa 100 mg tablet TAKE 1 TABLET BY MOUTH THREE TIMES DAILY active Not Available Not Available No t Available fludrocor tisone 0.1 mg tablet TAKE 1 TABLET BY MOUTH THREE TIMES DAILY active - two in the am and one at noon, per pt TR/RMA Not Available Not Available Not Available doxycycli ne hyclate 100 mg tablet 07/23 completed Not Available Not Available Not Available amoxicill in 875 mg-potass ium clavulana te 125 mg tablet TAKE 1 TABLET BY MOUTH TWICE DAILY FOR 10 DAYS 01/28 completed Not Available Not Available Not Available oxycodone 5 mg tablet TAKE 1 TABLET BY MOUTH EVERY 6 HOURS NEEDED FOR PAIN 04/15 completed Not Available Not Available Not Available midodrine 10 mg tablet TAKE 1 TABLET BY MOUTH THREE TIMES DAILY. DO NOT GIVE LAST DOSE OF DAY AFTER 6 PM OR WITHIN 4 HOURS OF BEDTIME active Not Available Not Available No t Available Asprin Ec Low Dose 81 mg tablet,de layed release Take 1 tablet every day by oral route. 2024 active [facility] D/C Not Available Not Available Not Avai lable clonazepa m 0.5 mg disintegr ating tablet active Not Available Not Available Not Available tadalafil 5 mg tablet TAKE 1 2 TAB AT LEAST 30 MINUTES PRIOR TO ANTICIPA STEPHANIE SEXUAL ACTIVITY 11/28 completed Not taking at this time 11/28/21 JF Not Available Not Available Not Available amoxicill in clav 875mg-12 5mg one BID 10 days 01/28 completed [facility] D/C. Not Available Not Available Not Available Advil prn 02/02 completed per wife/05/30-no t taking, per TR/RMA Not Available Not Available Not Available Sinemet 1 DAILY 07/13 completed Not Available Not Available Not Available lidocaine patch 4 % one daily prn 04/15 completed [facility] Not Available Not Available Not Available rasagilin e 1 mg tablet TAKE 1 TABLET BY MOUTH DAILY active Not Available Not Available No t Available compressi on stocking, knee high,long length,la rge circum uses daily 02/02 completed Not taking per Not Available Not Available Not Available Xarelto 20 mg tablet TAKE 1 TABLET BY MOUTH ONCE DAILY WITH DINNER 04/15 completed D/C [facility] Not Available Not Available Not Available potassium chloride ER 20 mEq tablet,ex tended release TAKE 1 TABLET BY MOUTH TWICE DAILY FOR 2 DAYS 12/15 completed Not Available Not Available Not Available droxidopa 100 mg capsule one TIB with 300mg, ( 400mg TID ) active 05/31/24= per per neuro, 600mg in am and noon and 400mg late afternoo n TR/RMA Not Available Not Available Not Available droxidopa 300 mg capsule TAKE 1 CAPSULE BY MOUTH THREE TIMES DAILY active 05/31/24= per per neuro, 600mg in am and noon and 400mg late afternoo n TR/RMA Not Available Not Available Not Available droxidopa 200 mg capsule TAKE 1 CAPSULE BY MOUTH THREE TIMES DAILY. STAY CONSISTE NT REGARDS TO TAKING THIS WITH OR WITHOUT FOOD AND TIME 07/30 completed Not Available Not Available Not Available Flublok Quad (PF) 180 mcg (45 mcg x 4)/0.5 mL IM syringe PHARMACY ADMINIST ERED 05/27 completed Not Available Not Available Not Available BinaxNOW COVID-19 Ag Self Test kit TEST DIRECTED TODAY 07/31 completed Not Available Not Available Not Available Paxlovid 300 mg (150 mg x 2)-100 mg tablets in a dose pack TAKE 3 TABLETS BY MOUTH TWICE DAILY FOR 5 DAYS 02/06 completed Not Available Not Available Not Available Vitals Date Recorded Body height Heart rate Systolic blood pressure Diastolic blood pressure Provider Name and Address Organization Details Last Updated DateTime 12/16/2023 182.88 cm 68 /min 100 mm[Hg] 60 mm[Hg] Roxana Oliva [facility] 12/16/2023 14:42:29 Date Recorded Body height Heart rate Systolic blood pressure Diastolic blood pressure Provider Name and Address Organization Details Last Updated DateTime 01/29/2024 182.88 cm 68 /min 80 mm[Hg] 50 mm[Hg] Roxana Oliva [facility] 01/29/2024 10:41:00 Date Recorded Body height Heart rate Systolic blood pressure Diastolic blood pressure Provider Name and Address Organization Details Last Updated DateTime 02/01/2024 182.88 cm 60 /min 100 mm[Hg] 55 mm[Hg] [facility] 11:36:18 Date Recorded Body height Heart rate Systolic blood pressure Diastolic blood pressure Provider Name and Address Organization Details Last Updated DateTime 02/18/2024 182.88 cm 68 /min 115 mm[Hg] 70 mm[Hg] [facility]/18[facility]24 14:10:16 Date Recorded Heart rate Systolic blood pressure Diastolic blood pressure Provider Name and Address Organization Details Last Updated DateTime 03/02/2024 76 /min 111 mm[Hg] 68 mm[Hg] Kael [facility] 03/02/2024 11:45:49 Date Recorded Body height Heart rate Body mass index (BMI) Body weight Systolic blood pressure Diastolic blood pressure Provider Name and Address Organization Details Last Updated DateTime 182.88 cm 75 /min 26.9 kg/m2 64653.3 9 g 108 mm[Hg] 68 mm[Hg] Roxana Oliva [facility] 11:38:33 Date Recorded Systolic blood pressure Diastolic blood pressure Provider Name and Address Organization Details Last Updated DateTime 05/27/2024 137 mm[Hg] 81 mm[Hg] Kael Ringer [facility] 05/31/2024 11:58:12 Social History Question Answer Notes LastModified by Organizat ion Details LastModified Time Tobacco Smoking Status Former Smoker quit 1972 Barry Villareal MD [address] [place] [address], [phone], [facility] 05/26/2012 16:05:01 What Is Your Level Of Alcohol Consumption? Occasional Every Couple Of Months [email or web address] Information not available 08/30/2021 Do You Wear A Helmet When Biking? No Does Not Ride A Bike Information not available 07/29/2021 What Is Your Level Of Caffeine Consumption? Moderate 1 Cup Coffee Daily [email or web address] Information not available 12/17/2010 How Much Tobacco Do You Chew? None [email or web address] Information not available 02/20/2011 Are You Currently Employed? No Information not available 07/31/2022 What Type Of Diet Are You Following? REGULAR [email or web address] Information not available 02/20/2011 Which Illicit Or Recreational Drugs Have You Used? None Information not available 07/27/2014 Do You Or Have You Ever Used E-cigarettes Or Vape? Never Used Electronic Cigarettes Information not available 05/04/2020 What Is The Highest Grade Or Level Of School You Have Completed Or The Highest Degree You Have Received? 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 Yes Daughter's Boyfriend Information not available 07/29/2021 When Did You Quit Smoking? 16+yearssince lastcigarette Information not available 02/22/2016 How Many Days In The Past Year Have You Had A Heavy Drinking Consumption (4+ Female, 5+ Male)? 0 Information not available 02/22/2016 Are There Any Guns Present In Your Home? No [email or web address] Information not available 02/20/2011 Do You Use Insect Repellent Routinely? No Information not available 07/29/2021 Live Alone Or With Others? With Others [email or web address] Information not available 02/20/2011 Patient Has Health Care Proxy Signed And In Chart Yes [email or web address] Information not available 04/08/2019 CCM Consent Discussion 07/29/2021 [email or web address] Information not available 08/19/2021 Marital Status Information not available 02/20/2011 Mosquito Repellent Used Routinely No [email or web address] Information not available 02/20/2011 What Was The Date Of Your Most Recent Tobacco Screening? 04/20/2024 [email or web address] Information not available 04/20/2024 How Many Children Do You Have? 4 Nancy(te aches) And Gisselle (business) Information not available 05/04/2020 What Is Your Relationship Status? Information not available 07/29/2021 Do You Use Your Seat Belt Or Car Seat Routinely? Yes Information not available 07/29/2021 Seat Belts Used Routinely Yes [email or web address] Information not available 02/20/2011 Are You Sexually Active? No [email or web address] Information not available 07/31/2022 Smoke Alarm In Home Yes [email or web address] Information not available 02/20/2011 Do You Have Smoke And Carbon Monoxide Detectors In Your Home? Yes Information not available 07/29/2021 Are You Passively Exposed To Smoke? Yes Information not available 07/29/2021 How Much Tobacco Do You Smoke? No [email or web address] Information not available 02/20/2011 General Stress Level Low [email or web address] Information not available 02/20/2011 Do You Use Any Illicit Or Recreational Drugs? No Information not available 07/29/2021 Do You Use Sunscreen Routinely? Yes [email or web address] Information not available 02/20/2011 How Many Years Have You Smoked Tobacco? 10 Information not available 05/04/2020 Do You Or Have You Ever Used Any Other Forms Of Tobacco Or Nicotine? No Information not available 07/29/2021 How Many Days In The Past Year Have You Consumed 5 Or More Drinks? 0 [email or web address] Information not available 07/31/2022 Sex: Male Functional Status Question Answer Note LastModified by Organizat ion Details LastModified Time What is your exercise level? Occasional Information not available 07/29/2021 Mental Status None recorded. Family History Relationship Description Onset Age of this Age Resolved Age Notes LastModified by Organization Details LastModified Time Father Alzheimer's disease [email or web address] Not available 2014 11:48:12 Notes:Colon polyps. Mother d ied 90 of ? cause. Medical History Condition Response Prostate Cancer Y Migraine Headaches Y Immunizations Vaccine Type Date Status Note Provider Nam e and Address Organization Details Recorded Time zoster live 1 completed Not Available [facility] 04/23/2019 02:16:30 Td(adult) unspecified formulation 6 completed Not Available [facility] 02/19/2011 05:21:29 influenza nasal, unspecified formulation 3 completed Sirena Sue MA [facility], [facility] 05/26/2012 15:24:42 COVID-19, mRNA, LNP-S, PF, 100 mcg/0.5mL dose or 50 mcg/0.25mL dose 1 completed Ninfa Egan LPN null, [facility] 05/08/2020 09:37:48 COVID-19, mRNA, LNP-S, PF, 100 mcg/0.5mL dose or 50 mcg/0.25mL dose 1 completed Donna Reyes MA [facility], [facility] 06/05/2020 11:30:05 Influenza, high-dose, quadrivalent, PF 1 completed Ninfa Egan LPN [facility], [facility] 01/31/2021 10:00:33 Influenza, split virus, quadrivalent, preservative 0 completed Dru aTpia RN [facility] 01/20/2020 12:11:39 Influenza, high-dose, quadrivalent, PF 2 completed Vivi Rodney MD [address] [place] [address], [phone], [facility] 02/06/2022 09:23:06 Td (adult), 2 Lf tetanus toxoid, preservative free, adsorbed 3 completed Juliana Sarmiento MA [facility], [facility] 10/06/2022 17:38:17 Influenza, high-dose, trivalent, PF 4 completed Vivi Rodney MD [address] [place] [address], [phone], [facility] 12/16/2023 15:26:15 Past Encounters Encounter ID Performer Location Encounter Start Date Encounter Closed Date Diagnosis/Indication Diagnosis SNOMED-CT Code Diagnosis ICD10 Code Diagnosis Note [id number] , [facility], [address] [place] [address] 10/29/2001 10:21:36 04/26/2008 02:02:29 [id number] [facility] [address] [place] [address] 05/12/2002 09:14:14 04/26/2008 02:02:29 [id number] , [facility], [address] [place] [address] 05/23/2002 09:38:33 04/26/2008 02:02:29 [id number] Optical, [facility] [address] [place] [address] 11/08/2003 14:29:01 11/08/2003 18:01:02 [id number] Optical, [facility] [address] [place] [address] 11/23/2003 16:56:23 11/23/2003 17:00:51 [id number] , [facility], [address] [place] [address] 04/16/2004 12:26:02 04/17/2004 08:58:28 [id number] Radiology , [facility] [address] [place] [address] 04/16/2004 13:08:33 04/17/2004 09:07:43 [id number] Radiology , [facility] [address] [place] [address] 04/16/2004 00:00:00 04/26/2008 02:02:29 [id number] [facility], [address] [place] [address] 10/16/2004 11:27:28 10/17/2004 08:31:43 [id number] , [facility], [address] [place] [address] 12/10/2004 10:11:46 04/26/2008 02:02:29 [id number] , [facility], [address] [place] [address] 07/02/2005 14:34:56 04/26/2008 02:02:29 [id number] LAB - [facility] [address] [place] [address] 07/02/2005 15:17:20 07/02/2005 15:17:37 [id number] , [facility], [address] [place] [address] 02/11/2006 14:33:16 02/11/2006 16:36:08 [id number] [facility], [address] [facility] ROBERTELISA [id number] 02/11/2006 14:33:16 02/11/2006 16:36:08 [id number] LAB - [facility] 70 ELISA [id number] 04/01/2006 13:30:18 04/01/2006 13:30:37 [id number] LAB - [facility] 70 ELISA [id number] 6 10/05/2006 12:50:43 10/05/2006 12:50:49 [id number] LAB - [facility] ELISA [id number] 6 01/26/2007 13:34:09 01/26/2007 13:34:16 [id number] [facility], [address] [facility] ELISA [id number] 6 06/08/2007 13:40:32 04/26/2008 02:02:29 [id number] LAB - [facility] Giselle [facility] ELISA [id number] 6 06/08/2007 14:44:40 06/08/2007 14:44:47 [id number] LAB - [facility] Giselle [facility] Shine ROBERTELISA [id number] 02/25/2008 14:00:22 02/25/2008 14:00:36 [id number] [facility], OFF[address] [facility] [id number] 6 05/18/2008 14:36:54 05/22/2008 11:11:42 [id number] Radiology , [facility] 70 [facility] [place] [address] 05/18/2008 15:13:20 05/18/2008 19:55:51 [id number] [facility], OFF[address] [facility] [id number] 05/26/2008 08:12:10 05/30/2008 10:25:14 [id number] [facility], OFF[address] [facility] [id number] 06/02/2008 08:13:35 06/07/2008 13:33:09 [id number] Radiology , [facility] 70 [facility] [place] [address] 06/02/2008 09:25:28 06/02/2008 12:26:46 [id number] Radiology , [facility] [address] [place] [address] 05/18/2008 00:00:00 02/01/2009 02:00:52 [id number] Radiology , [address] [address] 06/02/2008 00:00:00 02/01/2009 02:00:52 [id number] LAB - [address] [address] 06/21/2008 09:00:54 06/21/2008 09:01:22 [id number] LAB - [address] [address] 09/12/2008 13:45:14 09/12/2008 13:45:22 [id number] [facility], [address] [place] [address] 07/31/2009 14:07:21 08/03/2009 14:07:32 [id number] Radiology , [address] [address] 08/07/2009 12:17:46 08/08/2009 12:19:51 [id number] [facility], [address] [place] [address] 12/17/2010 13:23:06 12/17/2010 14:24:13 [id number] [facility], [address] [place] [address] 01/08/2011 14:28:53 01/08/2011 14:54:09 [id number] [facility], [address] [place] [address] 01/10/2011 14:29:09 01/10/2011 15:16:31 [id number] [facility] [facility] [address] [place] [address] 11/18/2011 14:40:45 11/24/2011 12:05:25 [id number] MD RACHELLE Landin [facility] [address] [place] [address] 05/26/2012 14:31:50 05/26/2012 16:11:10 [id number] Poonam BUSH [facility] [address] [place] [address] 07/25/2013 11:15:12 07/25/2013 12:57:20 Adult health examination [id number] see Risk Assessment and Lifestyle Change Counseling section above Counseling [id number] Primary ma lignant neoplasm of prostate 25408960 Unsteady when walking [id number] , [facility], [address] [place] [address] 07/27/2014 11:22:33 07/27/2014 12:51:51 Adult health examination 947610166 see Risk Assessment and Lifestyle Change Counseling section above Counseling [id number] Parkinson's disease 10675186 Primary ma lignant neoplasm of prostate 24668725 Peripheral nerve disease 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 Impacted cerumen 86025105 [id number] Barry Villareal MD , [facility], [address] [place] [address] 02/22/2016 15:34:46 02/22/2016 16:52:35 Adult health examination 805498142 Z00.00 see Risk Assessment and Lifestyle Change Counseling section above Counseling 297456877 Z71 .9 Parkinson's disease 4904 9000 G20 Primary ma lignant neoplasm of prostate 65604771 C61 [id number] Barry Villareal MD , [facility], [address] [place] [address] 05/22/2016 11:08:47 05/22/2016 12:33:28 Hearing loss 20379714 H91.92 [id number] Barry Villareal MD , [facility] [address] [place] [address] 03/06/2017 14:31:00 03/06/2017 15:42:32 Adult health examination 975696273 Z00.00 see Risk Assessment and Lifestyle Change Counseling section above Counseling 259720814 Z71 .9 Idiopathic peripheral neuropathy 58038388 G60.9 Peripheral nerve disease 715142355 G64 Parkinson's disease 4904 9000 G20 Primary ma lignant neoplasm of prostate 01827511 C61 [id number] Nidhi Wu MD , [facility], [address] [place] [address] 07/13/2017 11:49:25 07/15/2017 10:26:30 Tick bite 01657998 S00.96XA area is inflamed, will heal slowly on its own. Feels as t karan will fall 760354348 R26.81 known Parkinson' s... improving; RTO if does not continue improving. [id number] Nidhi Wu MD , [facility], [address] [place] [address] 07/15/2017 09:21:23 07/16/2017 12:02:13 Sepsis syndrome 789516049 R65.20 BP low, looks clinically terrible; referred to ER, report called over. 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 Likely viral. sx. relief [id number] Barry Villareal MD , [facility] [address] [place] [address] 04/05/2018 14:09:51 04/05/2018 15:02:26 Adult health examination 080540645 Z00.00 see Risk Assessment and Lifestyle Change Counseling section above Counseling 395744692 Z71 .9 Depression screening 171 538590 Z13.89 depression screening tool administer ed, entered into emr, scored and discussed, time greater than 7.5 minutes Peripheral nerve disease 066006890 G64 Parkinson's disease 4904 9000 G20 Primary ma lignant neoplasm of prostate 43486982 C61 [id number] Silke Markham PA-C , [facility] [address] [place] [address] 08/24/2018 14:18:08 08/24/2018 15:20:45 Tick bite without infection 219815844 T14.8XXA Right forearm - Most of tick removed.:R eassured pt that the rest would work its way out of his skin.No evidence of Lyme. Attachment time unknown, ABX prophylaxi s indicated. Observatio n/expectan t management recommende d. Red flags reviewed: fever/chil ls, arthralgia s, bulls eye rash warrant immediate re-evaluat ion. Parkinson's disease 4904 9000 G20 Compliant with carbidopa. Suggested PT for recent balance issues. Pt will consider and F/U in 1 month. Atrial fibrillation 4943 6004 I48.91 Stable. Compliant with Xaralto. Followed by cardiology . [id number] Silke Markham PA-C , [facility], [address] [place] [address] 09/24/2018 10:40:44 09/24/2018 11:19:07 Parkinson's disease 53782244 G20 Compliant with carbidopa and pramipexol e. Suggested PT for recent balance issues. Pt will consider. Discussed fall risks. Pt plans to put grab bars in bathroom. Atrial fibrillation 4943 6004 I48.91 Stable. Compliant with Xaralto and diltiazem. . Followed by cardiology . [id number] Sabas Alfaro MD , [facility] [address] [place] [address] 04/07/2019 14:20:42 04/07/2019 15:47:31 Adult health examination 647492754 Z00.00 see risk assessment Counseling 636910460 Z71 .9 Depression screening 171 989219 Z13.89 depression screening tool administer ed, entered into emr, scored and discussed, time greater than 7.5 minutes Parkinson's disease 4904 9000 G20 Compliant with carbidopa and pramipexol e. Suggested PT for strength and balance. 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 Pt will consider. Discussed fall risks. Atrial fibrillation 4943 6004 I48.91 RRR on exam. Saw Dr. Moy two days ago who DC-ed diltiazem d/t dizziness and encourages continuati on of xaralto. Discussed use of blood thinners v. fall risk. WIll be in contact with Dr. Moy to discuss. Primary ma lignant neoplasm of prostate 15019772 C61 Stable. FOllowed by Dr. Still. Recent PSA wnl. [id number] Sabas Alfaro MD , [facility] [address] [place] [address] 07/14/2019 09:59:42 07/15/2019 09:57:08 Atrial fibrillation 10140618 I48.91 Stable. Asymptomat ic. Followed by Dr. Moy who DC-ed diltiazem d/t dizziness and encourages continuati on of xaralto with which pt is compliant. Next cardiology appt scheduled for September. Parkinson's disease 4904 9000 G20 Compliant with carbidopa and pramipexol e. No change in symptoms except for worsening balance. Suggested PT to build strength and balance. Will give referral for PT and try to set him up with virtual visit. Primary er ectile dysfunction 257277960 N52.9 Will give Rx for viagra. Advised to start with low dose and increase as needed. Primary ma lignant neoplasm of prostate 96741431 C61 Stable. FOllowed by Dr. Still. Recent PSA wnl. [id number] Sabas Alfaro MD , [facility], [address] [place] [address] 05/04/2020 10:45:31 05/10/2020 15:10:35 Parkinson's disease 81619142 G20 Compliant with carbidopa and pramipexol e. No change in symptoms except for feeling wobbly in the morning. Suggested PT to build strength and balance. pt declines for now. Clonazepam helps with restless limb at night, Atrial fibrillation 4943 6004 I48.91 Stable. Asymptomat ic. Followed by Dr. Moy. Compliant with xaralto. Primary ma lignant neoplasm of prostate 04971486 C61 Stable. Asymptomat ic. Followed by Dr. Still. Adult heal th examination 429254207 Z00.00 see risk assessment Counseling 183875964 Z71 .9 including cardiovasc ular risk reduction counseling Depression screening 171 077319 Z13.89 depression screening tool administer ed, entered into emr, scored and discussed, time greater than 7.5 minutes Screening for alcohol abuse 326178025 Z13.39 see aduit C Screening for disorder 311745812 Z11.59 Primary er ectile dysfunction 487091994 N52.9 Will trial cialis. Advised to start with low dose and increase as needed. [id number] Ninfa Egan LPN , [facility] [address] [place] [address] 01/31/2021 09:07:49 02/05/2021 13:58:18 Active or passive immunization 344412399 Z23 [id number] Mary Ellis MD , [facility] [address] [place] [address] 03/13/2021 11:14:52 03/13/2021 12:20:51 Syncope 523297403 R55 Has been having near-synco pal epiosedes every 2-3 days.Most likely d/t known orthostati c hypotensio n.Otherwis e asymptomat ic.Followe d by cardiology who started midodrine 4 months ago.Advise dcontinuin g medication s, increasing salt and water intake, wearing compressio n stockings, and schedule earlier visit with cardiology .Will reach out to Dr. Fuentes to discuss case. Parkinson's disease 4904 9000 G20 Compliant with carbidopa and pramipexol e. Two recent episodes of incontinen ce and increasing wobblines s in mornings. Advised PT to build strength and balance and close f/u with neurology. Atrial fibrillation 4943 6004 I48.91 RRR today. Asymptomat ic. Followed by Dr. Fuentes. Compliant with xarelto. Skin lesion 41644605 L98 .9 Orthostati c hypotension 40012015 I95.1 Near syncopal episodes more frequent lately. COntinue midodrine as RXed by cardiology .Advised increasing salt and water intake, wearing compressio n stockings, and schedule earlier visit with cardiology . [id number] Sabas Alfaro MD , [facility], [address] [place] [address] 04/11/2021 10:17:05 04/18/2021 10:36:51 Orthostatic hypotension 49243498 I95.1 Near syncopal episodes more frequent lately. COntinue midodrine as RXed by cardiology .Advised increasing salt and water intake, wearing compressio n stockings, and schedule earlier visit with cardiology . Syncope 536120499 R55 Near-synco pal episodes with position change persisting Most likely d/t known orthostati c hypotensio n.Otherwis e asymptomat ic.Followe d by cardiology who started midodrine 5 months ago.Has not yet scheduled f/u.Advise d continuing medication s, increasing salt and water intake, wearing compressio n stockings, and schedule earlier visit with cardiology . Parkinson's disease 4904 [address] Melchionna - has appt next week. Will review notes. Compliant with carbidopa and pramipexol e. Starts PT next week for strength and balance. Atrial fibrillation 4943 6004 I48.91 Asymptomat ic. Followed by Dr. Fuentes. Compliant with xarelto. Encouraged scheduling f/u. [id number] Dary Phan, PT Physical Therapy, [facility] [address] [place] [address] 05/14/2021 09:22:49 05/16/2021 15:06:58 Impairment of balance 356739287 R26.89 Patient is a 80-year old {{female m kirill*}} with medical history significan t for Parkinson' s who was referred to physical therapy by his PCP due to increased unsteadine ss during gait. Physical examinatio n revealed multiple gait deviations , decreased gait speed, decreased lumbar and hip ROM and joint mobility, poor static and dynamic balance, and decreased LE muscle length. Goals will be updated after gait speed has been calculated at next visit.Kitty ent has {{signific ant modera te* mild}} functional limitation in their {{activiti es of daily living act ivities of daily living and work capacity a ctivities of daily living and exercise capacity a ctivities of daily living and recreation *}}. {{His* Her Their}} primary limitation s are with descending stairs, and walking or hiking for longer than 1/2-1 mile. His score of 20/28 on the Tinetti Balance Assessment indicates that he is at moderate risk of falling. Skilled physical therapy is indicated to safely and progressiv denise address impairment s and functional limitation s as outlined below. Patient is a {{good [place] r* poor}} candidate for physical therapy due to a good support system, and motivation to actively participat e in {{his* her their}} plan of care. Short Term Goals:In 4 weeks, patient will:1. Perform SLS for 10 seconds bilaterall y.2. Perform step down without loss of balance. [facility] Goals:In 6-8 weeks, patient will:1. Descend full flight of stairs with reciprocal gait and using rail without unsteadine ss.2. Walk for 1 mile without unsteadine ss.3. Perform SLS for 15 seconds bilaterall y.4. Demonstrat e independen ce with comprehens harris HEP. Treatment Plan: Patient to return for {{4 6 8 10 *}} visits over {{4 8 12*} } weeks. We expect significan t change in pain, impairment and function in this time frame.Jyotsna tment to Include: Continuing assessment , therapeuti c exercise, patient education, HEP (initiated ), manual therapy PRN, modalities PRN. Parkinson's disease 4904 9000 G20 [id number] Radha Scott DO FP, [facility] [address] [place] [address] 07/29/2021 08:07:28 07/29/2021 09:05:50 Adult health examination 634100648 Z00.00 see risk assessment Counseling 408478096 Z71 .9 including cardiovasc ular risk reduction counseling Depression screening 171 763713 Z13.31 depression screening tool administer ed, entered into emr, scored and discussed, time greater than 7.5 minutes Screening for alcohol abuse 791679884 Z13.39 see audit C Atrial fibrillation 4943 6004 I48.91 Asymptomat ic. RRR on exam today. Followed by Dr. Fuentes. Compliant with xarelto. Primary ma lignant neoplasm of prostate 68429750 C61 Stable. Asymptomat ic. No longer followed by Dr. Still. Parkinson's disease 4904 [address] oHang . Compliant with carbidopa and pramipexol e.Encourag ed returning to PT for balance and strength. Anemia 024619595 D64.9 mild as per last labs. WIll recheck labs. Orthostati c hypotension 27555381 I95.1 Dizziness with position change persists.C Ontinue midodrine as RXed by neurologyA dvised increasing salt and water intake and wearing compressio n stockings. [id number] Dary Phan, PT Physical Therapy, [facility] [address] [place] [address] 08/22/2021 10:32:21 08/26/2021 08:23:08 Impairment of balance 964832606 R26.89 Patient is a 80-year old {{female m kirill*}} with medical history significan t for Parkinson' s who was referred to physical therapy by his PCP due to increased unsteadine ss during gait. Physical examinatio n revealed multiple gait deviations , decreased gait speed, decreased lumbar and hip ROM and joint mobility, poor static and dynamic balance, and decreased LE muscle length. Patient became light headed when asked to stand for gait speed test; resolved after 5-10 seconds of seated rest. Suspect gait instabilit y and poor balance due to deconditio fozia, which may be contribute d to by patient's Parkinson' s symptoms, especially if they have progressed over the past three months.Jeannie mcknight has {{signific ant modera te* mild}} functional limitation in their {{activiti es of daily living act ivities of daily living and work capacity a ctivities of daily living and exercise capacity a ctivities of daily living and recreation *}}. {{His* Her Their}} primary limitation s are with position changes, descending stairs, and walking or hiking for longer than 1/2-1 mile. His score of 16.75 sec on the Five Times Sit to Stand test and gait speed of 0.67 m/sec are both below the cut off scores of 14.8 seconds and 0.8 m/sec respective ly, and indicate that he is at increased risk for future falls. Skilled physical therapy is indicated to safely and progressiv denise address impairment s and functional limitation s as outlined below. Patient is a {{good [place] r* poor}} candidate for physical therapy due to a good support system, and motivation to actively participat e in {{his* her their}} plan of care. Short Term Goals:In 4 weeks, patient will:1. Perform SLS for 5 seconds bilaterall y.2. Perform sit to stand without use of hands. [employer] Goals:In 8 weeks, patient will:1. Perform 5XSST test in 14.8 seconds or less.2. Demonstrat e gait speed of 0.8 m/sec.3. Perform step down with use of rail without unsteadine ss.4. Demonstrat e independen ce with comprehens harris HEP. Treatment Plan: Patient to return for {{4 6 8 10 *}} visits over {{4 8 12*} } weeks. We expect significan t change in pain, impairment and function in this time frame.Jyotsna tment to Include: Continuing assessment , therapeuti c exercise, patient education, HEP (initiated ), manual therapy PRN, modalities PRN. Parkinson's disease 4904 9000 G20 [id number] Vivi Rodney MD , [facility], [address] [place] [address] 08/30/2021 13:52:41 09/04/2021 14:28:37 Backache 863996774 M54.9 suspect muscular, but will check xrays to rule out rib fxcan take three advil and two tylenol at bedtime for a few days only to minimize complicati onsrelucta nt to give anything stronger Fall W19.XXXA veryunstea dy on feetlooks like started PT for thishigh fall risk [id number] Vivi Rodney MD , [facility], [address] [place] [address] 11/28/2021 08:34:39 11/29/2021 14:38:43 Atrial fibrillation 83103196 I48.91 stable on xareltosee s cardioecho next month Orthostati c hypotension 00848243 I95.1 on meds, dr hoang encouraged to change position slowly Parkinson's disease 4904 9000 G20 per neuro Skin lesion 83122344 L98 .9 looks like eczema, trial OTC cortisone cream Erectile dysfunction 860 467305 F52.21 viagra not an option due to possibly dropping BPpt advised Insomnia 094021451 G47.0 0 increases risk falling, pt aware [id number] Radha Scott DO , [facility], [address] [place] [address] 01/13/2022 17:37:44 03/14/2022 07:35:29 Exposure to SARS-CoV-2 989140526 Z20.828 COVID-19 357434015 U07.1 Educated patient that URI is a viral illness of the upper airways. It is not bacterial and does not benefit from antibiotic s. Recommende d symptomati c treatments including NSAIDS, semi-uprig ht sleep position, and nasal saline rinses with soft squeeze bottle or Neti pot. Honey is a safe and effective treatment for cough and can be especially helpful for nighttime cough. Warm salt water gargles 3x daily, and tea with lemon can help to relieve throat pain. Drink plenty of fluids and get adequate rest. If patient does have covid, was counseled that illness may last for 2-3 weeks. Indication s for ED include difficulty breathing. The [facility] office does offer a respirator y clinic if the patient feels they need to be evaluated. Counseled on isolating from others, including inside the home. Pt should wear a mask when leaving isolation room and disinfect any surfaces touched. Quarantine for 10 days from the date of positive test, or 10 days from the start of symptoms. F/u covid-19 test as patient was exposed. Pt agrees with plan. [id number] Vivi Rodney MD , [facility], [address] [place] [address] 02/06/2022 08:43:01 02/06/2022 13:53:40 Atrial fibrillation 06335490 I48.91 stable on xareltosee s cardiofoll owup 6 months Orthostati c hypotension 42247902 I95.1 on medsencour aged to change position slowly Parkinson's disease 4904 9000 G20 will refer to new neuro as dr viktor orellana.c ontinue same meds for now Active or passive immunization 130234757 Z23 [id number] Roxana Oliva , [facility] [address] [place] [address] 07/31/2022 08:58:42 07/31/2022 09:50:45 Adult health examination 795979172 Z00.00 declines immun Depression screening 171 672290 Z13.31 depression screening tool administer ed Screening for alcohol abuse 546882038 Z13.39 Alcohol use screening tool administer ed Vaccination not done 207 6825151 9108 Z28.9 declined tetanus today Atrial fibrillation 4943 6004 I48.91 stable on xareltosee s cardiofoll owup 6 months Parkinson's disease 4904 9000 G20 seeing neuro, stable on medsoffere d PT for fall prevention , pt declined Orthostati c hypotension 02453092 I95.1 on medsencour aged to change position slowly Onychomyco sis of toenails 053936847 B35.1 trial penlac Primary ma lignant neoplasm of prostate 40039896 C61 pt reports no further screening done Erectile dysfunction 860 720723 F52.21 viagra not an option due to possibly dropping BPpt advised [id number] Ravindra Gardiner MD , [facility], [address] [place] [address] 09/27/2022 10:11:08 09/27/2022 10:58:28 Onychomycosis of toenails 892141522 B35.1 Contusion of rib 2504264 06 S20.20XA lowermost left 3 ribs very tender (winces to touch) lateral to the rib confluence he has a scrape on the same side lateral epicondyle of the elbow and he confirms that he landed on his side with the elbow pushing into his ribsthere is no ecchymosis and lungs are fully aeratedi explained taht the rib pain with truncal movement may persist for 4 weeks.he has had rib fxs and and he are comfortabl e with this advice he has well cleansed open hand size abrasion left chavez, and a nasal abrasionhi s facial trauma is minimal , no evidence of calvarial trauma or neurologic al symptoms [id number] Idalia Mercer MD , [facility], [address] [place] [address] 10/06/2022 16:39:47 10/08/2022 07:15:31 Active or passive immunization 001758266 Z23 Edema of l ower extremity 732264885 R60.0 Abrasion o f skin of lower leg 543974227 S80.812A Atypical chest pain 1025 16508 R07.89 [id number] Joelle Denise PA-C , [facility], [address] [place] [address] 10/10/2022 08:55:03 10/10/2022 11:53:42 Edema of lower extremity 499444945 R60.0 ED follow up. Was seen here 10/06 and referred to ED for edema and elevated BP with left foot pain.CXR was normal. US was normal.Was diagnosed with cellulitis and given Keflex x 7 day course. On day 4 of med.Is improving. Is elevating foot/leg - notes swelling is improving. Continue to monitor for improvemen t. Abrasion o f skin of lower leg 752150579 S80.812A Healing well - dressing changes daily. Chronic or thostatic hypotension 67499355 I95.1 Has hx of chronic orthostati c hypotensio n: BP is low today. Braxton a little dizzy when coming in, resolving now. Not out of usual for him.No new symptoms. No CP or SOB.Took his meds midodrine and fludrocort isone this morning.To proceed to ER if having new/red flag sx as discussed above.Disc ussed case with Dr. Rodney - agrees with POC for patient to monitor at home. [id number] Vivi Rodney MD , [facility], [address] [place] [address] 01/30/2023 09:54:38 01/30/2023 10:24:15 Atrial fibrillation 03873986 I48.91 stable on xareltosee s cardiofoll owup 6 months Orthostati c hypotension 23024061 I95.1 on medsincrea se midodrine back to 5 mg BID Parkinson's disease 4904 9000 G20.B1 followup neuro Peripheral nerve disease 732694217 G64 slight progressio n, mild in shins per pt [id number] Vivi Rodney MD , [facility], [address] [place] [address] 07/31/2023 10:37:49 07/31/2023 11:07:20 Atrial fibrillation 01737372 I48.91 stable on xareltosee s cardiofoll owup 6 months Orthostati c hypotension 63329237 I95.1 will taper up midodrine gradually based on sx to max 10 mg TID Parkinson's disease 4904 9000 G20.B1 followup neuro Unintentio nal weight loss 895162833 R63.4 will initiate workupif negative, will watch wt over next few monthswife and pt agree with plan [id number] Vivi Rodney MD , [facility], [address] [place] [address] 11/06/2023 10:14:04 11/06/2023 16:24:59 Hypokalemia 92265753 E87.6 recheck today Transient cerebral ischemia 846051248 G45.9 resolved. CTA head and neck normalecho normalon xarelto and started atorvastat inhas neuro followup Parkinson's disease 4904 9000 G20.B1 followup neurostart ing PT at home for falls Contusion of rib 4924380 06 S20.20XA suspect bruised rib, no evidence fracture [id number] Vivi Rodney MD , [facility], [address] [place] [address] 12/16/2023 14:35:02 12/17/2023 18:51:53 Active or passive immunization 464761422 Z23 Orthostati c hypotension 04462496 I95.1 suspect falls related to low BPwill check labs and urine to rule out other causestay off atorvastat in for nowkeep cardio apt Atrial fibrillation 4943 6004 I48.91 for echo and monitor, cardio considerin g watchman to get him off xarelto due to falls Hypokalemia 01501337 E87 .6 increase to 20 meq Kcl [id number] Vivi Rodney MD , [facility], [address] [place] [address] 01/29/2024 10:22:35 01/29/2024 11:16:16 Hypokalemia 65751224 E87.6 stable on current dose Atrial fibrillation 4943 6004 I48.91 stable on meds Orthostati c hypotension 63176545 I95.1 continue medssees neuro next week and autonomic specialist in [place] in February Parkinson's disease 4904 9000 G20.B1 followup neuro Nocturia [id number] R35.1 will check urine for UTIconside r med to help if negative, as long as no interactio ns Recurrent falls [id number] 2 R29.6 due to PD and hypotensio nhigh risk due to anticoagul ationin wheelchair outside of house now [id number] Vivi Rodney MD , [facility], [address] [place] [address] 02/01/2024 11:29:56 02/02/2024 12:15:17 Chest pain [id number] R07.9 check xraytrial tramadol prn [id number] Vivi Rodney MD , [facility], [address] [place] [address] 02/18/2024 14:00:01 02/18/2024 14:27:00 Closed fracture of sternum [id number] S22.20XD pain resolved Orthostati c hypotension [id number] I95.1 continue medssees autonomic specialist in [place] next week Atrial fibrillation 4943 6004 I48.91 stable on medsconsid ering watchman due to frequent falls, high risk being on anticoagul ationfollo wup cardio to discuss [id number] Kalia Sykes RN FP, [facility], [address] [place] [address] 04/20/2024 11:30:39 04/22/2024 09:35:57 Atrial fibrillation [id number] I48.91 stable on medswatchm an went welloff xareltofol lowup cardio as scheduled Disorder o f autonomic nervous system [id number] G90.9 for MRIs next week, has followup with flo herron PT/OT for frequent falls Parkinson's disease 4904 9000 G20.B1 As above: Order PT/OT for frequent falls Health Concerns Section Related Observation LastModified by Organization Detai ls LastModified Time None Recorded Concern Status LastModified by Organization Details LastModified Time None Recorded Advance Directives Directive None Recorded Payers Encounter Date Sequence Insurance Name Policy Number Policy Carreon Covered Member ID Carreon Member ID Guarantor Name 12/16/2023 2 [place] [id number] Ozzie Langford [id number] Ozzie Langford 12/16/2023 1 [place] Ozzie Langford [id number] 1 Ozzie Langford 01/29/2024 2 [place] [id number] Ozzie Langford [id number] Ozzie Langford 01/29/2024 1 [place] Ozzie Langford [id number] 1 Ozzie Langford 02/01/2024 2 [place] [id number] Ozzie Dialloton [id number] Ozzie Langford 02/01/2024 1 [place] Ozzie Langford [id number] 1 Ozzie Langford 02/18/2024 2 [place] [id number] Ozzie Langford [id number] Ozzie Langford 02/18/2024 1 [place] Ozzie Langford [id number] 1 Ozzie Langford 04/20/2024 2 [place] [id number] Ozzie Langford [id number] Ozzie Langford 04/20/2024 1 [place] [facility] G[facility]MENT [facility] Ozzie Langford [id number] 1 Ozzie Langford Notes Date Note Type Note Provider Name and Address Organization Details Recorded Time 12/16/2023 text/html presents with wi fe for increase in falls. Was 1-2 times per week, now daily since october. correlates with start of atorvastatin. Urine very dark too. Stopped med 4 days ago and urine back to baseline. No CP, SOB, pain. No urinary sxNotes BP at home gets as low as 67/40. Taking meds as listedgoing for echo and heart monitor to be considered for watchman procedure Vivi Rodney MD [address] [place] [address], [phone], [facility] 12/16/2023 15:31:55 01/29/2024 text/html 01/29/24 presents with for followup. In wheelchair when out of house now. Fell onto couch 10 days ago, front of chest sore. Fell and broke now, was in ER>Sees neuro next week and has apt with autonomic specialist in [place] week after.Frequent urination, abrupt onset per pt. No burning. Nocturia 7-8 per night. Vivi Rodney MD [address] [place] [address], [phone], [facility] 01/29/2024 11:10:28 02/01/2024 text/html 02/01/24 chest pain seems to be worse. No SOB. Fell into couch 2 weeks ago. Vivi Rodney MD [address] [place] [address], [phone], [facility] 02/01/2024 11:49:36 02/18/2024 text/html for followup wit h . Chest pain resolved. Still falling. Has apt in [place] next week. Cardio considering watchman so can stop anticoagulation. Vivi Rodney MD [address] [place] [address], [phone], [facility] 02/19/2024 17:09:55 04/20/2024 text/html presents with myranda muniz for hospital followup. Had watchman procedure last week, no complications. Off xarelto. On asa and plavix. Has cardio followup bookedSaw [place] autonomic dysfxn specialist. Adjusted timing of fludrocortisone, booked MRI. Has followup end of month. Not sure what can offer. HARJINDER Reich, [facility] 05/04/2024 10:26:32
== END 2024-06-22 12:05 | disposition home or self-care (01) ==
LOC: HO.HSMS 11:28
PROVIDERS: PCP Family Medicine; Visit Provider Psychiatry & Neurology Neurology
DX: G20.A1 Parkinson's disease without dyskinesia, without mention of fluctuations (principal); I95.1 Orthostatic hypotension; G47.52 REM sleep behavior disorder; R48.8 Other symbolic dysfunctions
CPT/HCPCS: 99214; G2211

== ENCOUNTER → 2024-06-22 11:27 | Outpatient (BNVA) | payer MEDICARE, BC, SELFPAY | PROVIDERS: PCP Family Medicine; Visit Provider Psychiatry & Neurology Neurology | DX: G20.A1 Parkinson's disease without dyskinesia, without mention of fluctuations (principal); G47.52 REM sleep behavior disorder; I95.1 Orthostatic hypotension; R48.8 Other symbolic dysfunctions; Z91.81 History of falling | CPT/HCPCS: 99212 ==

== ENCOUNTER 2025-01-02 10:50 | Outpatient (AMB) | payer MEDICARE, BC, SELFPAY ==
--- NOTE | 2025-01-02 10:52 | MHC.OFFVIS ---
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 Machine Required: No Accompanied by: Spouse Allergies No Known Allergies Allergy (Verified 01/02/25 10:53) Medication List - Last Reconciled 01/02/25 by Delmsi Davalos MD aspirin 81 mg PO DAILY carbidopa-levodopa 25-100 mg 1 tab PO TID 90 days clonazepam 0.5 mg PO BEDTIME [compression stockings As directed] droxidopa 600mg qam, 600mg q afternoon, 600mg q evening orally .; give consistently with OR without food, upon rising, at midday, late PM/at least 3hrs before be 90 days fludrocortisone 0.1 mg PO TID 90 days midodrine 10 mg PO TID 90 days rasagiline 1 mg PO DAILY 90 days HPI Comments Details: 84-yr-old male presents for f/u visit.He still has some falls. it is manageable. he is slower in the evenings There are some triggers which includes bright sun. [facility] and his droxidopa was increased to 600-600-400 and he has been doing well since then .No episodes of passing out since then. He is drinking more fluids- now drinking a full glass of water w/ his meds. . Pt's current PD medication regimen: CD-LD 25-100mg 1 tab tid, Rasagiline 1mg qd. Droxidopa 600mg qam qnoon 400mg q evening fludrocortisone 0.2mg qam 0.1 mg q noon midodrine 10mg tid (8am and 12pm) ADL's: Ind. Usually showers when is home. Swallowing: No issues Drooling: At night- at times Orthostatic lightheadedness: as above Constipation: None Freezing: None Stiffness: None Tremor: Not noticing much tremor Hallucinations: None Memory: Still some Short term lapses and more difficulty w/ calculations. Still playing card games- and doing well. Sleep: Still waking up at night. Exercise: Not much exercise. Plans to try swimming in the small pool at the [facility]. [facility] Medical History Orthostatic hypotension Hypertension Orthostatic hypotension 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 Atrial fibrillation Prostate cancer Surgical History Status post Mohs surgery Hx of appendectomy Family History Father Alzheimer disease Social History Household Members: Spouse Housing: House Do you presently have visiting nurse or other home services: No Alcohol intake: former Patient Tobacco Use Status: Former Tobacco user Advance Directives Date on File: 10/29/23 service: No Physical Exam Vital Signs: Last Vital Signs Pulse 62 01/02/25 10:53 BP 158/94 H 01/02/25 10:53 Pulse Ox 97 01/02/25 10:53 Oxygen Delivery Method Room Air 01/02/25 10:53 Const General: cooperative and no acute distress Resp Effort & Inspection: normal respiratory effort and able to speak in complete sentences Neuro Other: General: A&O x's 3 Expression: Decreased expression and blink Voice: Soft Tremor: None Tone: Mild RUE tone Dyskinesia: None today FFM: Bradykinesia- more so on right Foot taps: Mild bradykinesia Gait: Slow to stand, decreased arm swing- no chorea in hands, short steps, steady. 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 Continue Clonazepam 0.5mg qhs- we can manage this if needed. Midodrine from 10mg tid Fludrocortisone 0.1mg 2 tabs qam and 1 tab q noon Droxidopa 600mg tid Continue increased fluids w/ electrolyte supplement such as liquid IV, gatorade/powerade. Compression stockings, increase salt , take time when he changes position from sitting to standing position ? Medications: Changed From droxidopa 600mg qam, 600mg q afternoon, 400mg q evening (300mg + 100mg cap) orally .; give consistently with OR without food, upon rising, at midday, late PM/at least 3hrs before bedtime 150 caps 6RF 30 days To droxidopa 600mg qam, 600mg q afternoon, 600mg q evening orally .; give consistently with OR without food, upon rising, at midday, late PM/at least 3hrs before be 180 caps 6RF 90 days Coding Level of Care Code Est Pt Level 4 (13805) Complex EM visit Add On G2211 Diagnoses Parkinson's disease without dyskinesia G20.A1 Orthostatic hypotension I95.1 REM sleep behavior disorder G47.52 Acalculia R48.8
[2025-01-02 10:53] VITALS: BP 158/94; PULSE 62; O2SAT 97
--- OUTSIDE RECORDS SUMMARY | 2025-01-02 12:22 | XMS_ITS | Encounter Summary ---
Author Organization [facility] Address [address] [place] [phone] Phone Care Team Providers Care Executive Director Of Marketing Name Role Phone Soo Rodney MD Primary Care Provider + Soo Rodney MD Primary Care Provider + Encounter Details Date Type Department Care Team (Late st Contact Info) Description 11/20/2023 Procedure Pass Echo [facility] [address] [place] [address] Social History Tobacco Use Types Packs/Day Years Used Date Smoking Tobacco: Former Smokeless Tobacco: Never Alcohol Use Standard Drinks/Week Comments Yes 0 (1 standard drink = 0.6 oz pur e alcohol) Education Answer Date Recorded Are you interested in more education? Not on tate e 08/01/2022 Are you concerned about learning? Not on file 08/01/2022 No 08/01/2022 No 08/01/2022 Digital Access Answer Date Recorded No 08/30/2022 No 08/30/2022 Reliable internet access at home? Not on file 08/30/2022 Device with a working camera? Not on file Intimate Partner Violence Answer Date R ecorded Are you denied basic needs s uch as food, clothing, or medical care? No 11/01/2022 In the past 12 months have y ou been in a relationship with a person who hurts, threatens, or tries to control you? No 11/01/2022 Are you denied basic needs s uch as food, clothing, or medical care? No 11/01/2022 In the past 12 months have y ou been in a relationship with a person who hurts, threatens, or tries to control you? No 11/01/2022 Sex and Gender Information Value Date Recorded Sex Assigned at Male 07/15/2017 10:29 AM EDT Legal Sex Male 10:10 PM EDT Gender Identity Male 07/15/2017 10:29 AM EDT Sexual Orientation Straight 07/15/2017 10 :29 AM EDT documented as of this encounter Plan of Treatment Upcoming Encounters Date Type Department Care Team (Late st Contact Info) Description 06/28/2025 1:20 PM EDT Office Visit [facility] [address] [place] [address] [address], [address] [place] [address] Nawaf Trevino MD [address] [place] [phone] [email or web address] documented as of this encounter Visit Diagnoses Not on filedocumented in this encounter Care Teams Executive Director Of Marketing Relationship Specialty Start Date End Date Soo Rodney MD [email or web address] PCP - General Family Medicine 10/06/22 02/23/24 Soo Rodney MD [address] [place] [phone] [email or web address] PCP - General Family Medicine 02/24/24 documented as of this encounter Additional Source Comments The information contained in this document represents components of the legal health record. It is not the complete legal health record.[facility]
--- OUTSIDE RECORDS SUMMARY | 2025-01-02 12:22 | XMS_ITS | Clinical Summary ---
Author Organization [facility] Address [address] [facility] [address] [place] [address] Phone Care Team Providers Care Licensed Pharmacist Name Role Phone Soo Rodney MD Primary Care Provider + Allergies No known active allergies Medications rasagiline (AZILECT) 1 mg Take 1 mg by mouth daily. Active carbidopa-levod opa (SINEMET CR) 25-100 mg per CR tablet Take 1 tablet by mouth 3 (three) times a day. 1 tab daily Active clonazePAM (KLONOPIN) 0.5 MG tablet Take 0.5 mg by mouth nightly at bedtime. 7 Active fludrocortisone (FLORINEF) 0.1 mg tablet Take 0.3 mg by mouth daily. Active droxidopa (NORTHERA) 200 mg capsule Take 600 mg by mouth 3 (three) times a day. 600/600/400 3 Active potassium chloride (K-TAB) 20 mEq TbER ER tablet 4 Active midodrine (PROAMATINE) 5 MG tablet Take 2 tablets (10 mg total) by mouth 3 (three) times a day. 90 tablet 3 4 Active aspirin 81 MG EC tablet Take 81 mg by mouth daily. Active clopidogrel (PLAVIX) 75 mg tablet Take 75 mg by mouth daily. 12/22/19 25 Discontinu ed(No longer taking) Active Problems Problem Noted Date Diagnosed Date Positive anaplasmosis titer 08/16/2017 Assessment & Plan (08/16/2017 12:11 PM EDT): - Recently hospitalized due to a febrile illness, and was noted to be positive for anaplasmosis. Atrial fibrillation potentially secondary due to this illness. - He has completed his treatment with oral doxycycline. He reports is feeling improved, although still with some continuing fatigue, weakness, and occasional dizziness. - He will continue to follow with his PCP for further management. Current use of halfway anticoagulation 018 Assessment & Plan (09/17/2017 5:27 PM EDT): - As noted above, continues on anticoagulation for atrial fibrillation. - CHADs-VASc score 2 (age) - He will follow-up in this office in about [address] Moy for continued management. - He has a history of Parkinson's, and is currently controlled on his medications. However he may become a higher falls risk in the future due to his medical condition. - He is aware to call sooner with questions or concerns. Assessment & Plan (08/16/2017 12:13 PM EDT): - As noted above, continues on anticoagulation for newly diagnosed atrial fibrillation. - CHADs-VASc score 2 (age) - He will follow-up in this office in about one month's time, and will also see Dr. Moy in December prior to their trip to [place] - He has a history of Parkinson's, and is currently controlled on his medications. However he may become a higher falls risk in the future due to his medical condition. Paroxysmal atrial fibrillation 07/15/2017 Assessment & Plan (12/21/2024 1:17 PM EDT): Patient presents today in normal sinus rhythm on exam. He is status post watchman and currently on aspirin only. He is not on any rate controlling medications. Will continue current management and have him follow-up in 6 months. He does report occasional lightheadedness and frequent falls related to his Parkinson's disease. Plan: Follow-up in 6 months Assessment & Plan (03/20/2020 2:17 PM EST): No episodes. I have asked him to have a metabolic profile drawn today. Assessment & Plan (10/05/2019 1:24 PM EDT): Lightheadedness has improved once his diltiazem was discontinued but he still has some postural lightheadedness but very brief. He remains appropriately anticoagulated and has had no evidence of bleeding. Assessment & Plan (04/05/2019 12:34 PM EST): Remains in sinus rhythm. Now on no AV rozina blocking drugs. 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 I have not restarted any new rate control medications. Assessment & Plan (12/29/2018 10:17 AM EDT): He's ECG today is a normal tracing in sinus rhythm at 68. He did have moderate orthostatic changes with his systolic dropping from 112 298 with slight lightheadedness. This could be due to his diltiazem or his Parkinson's drugs or possibly even just his Parkinson's. For now I am going to hold his diltiazem but bring him back in about 3 months. I have told him that after 2 weeks he still has lightheaded spells when he becomes upright to restart the medication. Assessment & Plan (06/23/2018 9:13 AM EDT): Doing well. No evidence of recurrence. Should his lightheadedness become more significant it may be reasonable to discontinue his diltiazem and follow him clinically. Assessment & Plan (03/25/2018 9:06 AM EST): ECG today reveals a sinus rhythm at 66 and is a normal tracing. We discussed his stroke risk and the rationale behind his anticoagulation and rate control medications (diltiazem at 120). Despite his systolic pressure today of only 90 he has no symptoms of lightheadedness that were not present prior to beginning his medications. For the time being he is going to remain on his medications including Xarelto and have a full discussion with his boss . He explained that this is his who makes all the major decisions. Assessment & Plan (09/17/2017 5:28 PM EDT): - New A. fib on presentation to hospital during acute febrile illness secondary to a tick bite and converted to sinus rhythm on the first day during his hospitalization while on IV Cardizem. - CHADS-VASc score - 2 (age), showing moderate risk for CV event. He will continue on anticoagulation at this time. He has no other previous known cardiac history. - His fatigue has improved in the last month, and he has been able to do more activities. His heart rate today is in the 60s, blood pressure controlled. - He is tolerating his medications and no signs and symptoms of bleeding. Continue on current dosing of cardizem, and xarelto. - He will follow-up in this office in about 3 months with ani Alva Assessment & Plan (08/16/2017 12:14 PM EDT): - New A. fib on presentation to hospital during acute febrile illness secondary to a tick bite. - He converted to sinus rhythm on the first day during his hospitalization while on IV Cardizem. - CHADS-VASc score - 2 (age), showing moderate risk for CV event. He will continue on anticoagulation at this time. He has no other previous known cardiac history. - He and his had multiple questions regarding this new diagnosis, and options for anticoagulation (i.e length of time). They enjoy traveling, and currently prefer one of the DOACS that he is currently on. He has a history of Parkinson's, which is somewhat currently controlled on his medication regimen. However in the future he may become a very high falls risk, which may necessitate re-reviewing anticoagulation options. - He has been feeling somewhat tired and fatigued, but is improving since his hospital discharge and treatment with antibiotics for tick borne illness. His heart rate is noted to be in 50s to low 60s. Blood pressure 118/57. Discussed options for potentially adjusting his Cardizem dosing, but he will see how he improves from his illness. If he still feels fatigued later on, then we may discuss adjusting this dose - EKG in office today showing sinus rhythm. - He will follow-up in this office within one month prior to their trip to [place]. - Samples of Xarelto were provided to them to keep on hand in case they have issues with obtaining prescriptions prior to their trip. Assessment & Plan (07/16/2017 3:13 PM EDT): Rapid A. fib, new for this patient. Due to his acute illness. Converted to sinus on telemetry. He did receive IV diltiazem and a drip initially. He is now on oral Cardizem short acting. This should be changed ultimately to long-acting Cardiology was consulted and they do recommend ongoing anticoagulation. An echo is pending Follow-up with cardiology in 2-3 months in the office Febrile illness 07/15/2017 Assessment & Plan (07/16/2017 3:12 PM EDT): History and symptoms lab work seems consistent with a tickborne illness. He'll continue on doxycycline. Chest x-ray urine analysis negative he has no abdominal pain or diarrhea . Studies for Lyme, babesiosis, and anaplasmosis all sent and pending. Discharge when he has improved strength when he is been afebrile with normalization or improvement of his lab work Parkinson's disease 07/15/2017 Assessment & Plan (07/15/2017 3:57 PM EDT): Continue his outpatient medications including patient own med which we will administer rasagiline. Hearing loss REM sleep behavior disorder Resolved Problems Problem Noted Date Diagnosed Date Resolved Date Probable sepsis 07/15/2017 07/17/2017 Encounters Date Type Department Care Team Description 12/21/2024 1:00 PM EDT Office Visit [facility] [address] [facility] [address] [facility] 3rd Floor, [address] [place] [address] Dana Licea DNP Paroxysmal atrial fibrillation (Primary Dx) 11/29/2024 4:[address] [facility] [address] [place] [address] Keven Zhang MD Parkinson's disease with dyskinesia without fluctuating manifestations (Primary Dx); Autonomic failure; Falls; Imbalance from Last 3 Months Immunizations Immunization Administration Dates Next Due COVID-19 (Pre-01/26) Moderna Vaccine, mRNA, PF 0 06/05/2020,05/08/2020 Influenza Quadrivalent w/ Preservative IM 2019 Td, unspecified formulation 02/11/2006 Zoster live 01/08/2011 Social History Tobacco Use Types Packs/Day Years Used Date Smoking Tobacco: Former Smokeless Tobacco: Never Tobacco Cessation:Counseling Given: Not Answered Alcohol Use Standard Drinks/Week Comments Yes 0 [...] Orientation Straight 07/15/2017 10 :29 AM EDT Last Filed Vital Signs Vital Sign Reading Time Taken Comments Blood Pressure 120/68 12/21/2024 1:00 PM EDT Pulse 72 12/21/2024 1:00 PM EDT Temperature 36.7 C (98.1 F) 11/01/2022 5:31 PM EDT Respiratory Rate 17 11/01/2022 5:31 PM EDT Oxygen Saturation 97% 12/21/2024 1:00 PM EDT Inhaled Oxygen Concentration - - Weight 74.8 kg (165 lb) 12/21/2024 1:00 PM EDT Height 182.9 cm (6' 0.01 ) 12/21/2024 1:00 PM ED T Body Mass Index 22.37 12/21/2024 1:00 PM EDT Plan of Treatment Upcoming Encounters Date Type Department Care Team (Late st Contact Info) Description 06/28/2025 1:20 PM EDT Office Visit [facility] 3rd [facility], [address] [place] [address] Nawaf Trevino MD [address] [place] [address] [email or web address] Health Maintenance Due Date Last Done Comments DEPRESSION SCREENING 1954 PNEUMOCOCCAL VACCINES (50+ years) (1 of 1 - PCV) 1992 ZOSTER VACCINES (2 of 3) 03/05/2011 01/08/2011 RSV VACCINE (1 - 1-dose 75+ series) 2017 POTASSIUM LEVEL 11/02/2023 11/01/2022, 03/06, 12/29/2018, Additional history exists INFLUENZA VACCINE (#1) 2024 , 02/04/2023, 02/06/2022, Additional history exists COVID-19 VACCINE ( season) 2024 02/18/2024, 02/04/2023, 04/15/2022, Additional history exists Adult Td,Tdap Booster 10/06/2032 10/06/2022, 006 HEPATITIS A VACCINES Aged Out No long er eligible based on patient's age to complete this topic HIB VACCINES Aged Out No longer eligi ble based on patient's age to complete this topic MENINGOCOCCAL VACCINES (ACWY) Aged Out No longer eligible based on patient's age to complete this topic MENINGOCOCCAL VACCINES (B) Aged Out N o longer eligible based on patient's age to complete this topic Medical Devices Not on file Procedures Procedure Name Priority Date/Time Associated Diagnosis Comments BASIC METABOLIC PANEL STAT 11/01/2022 2:37 PM EDT from Last 3 Months or Most Recently Relevant to Health Maintenance Results * (ABNORMAL) Basic metabolic panel (11/01/2022 2:37 PM EDT) SODIUM 143 133 - 146 mmol/L [facility] CHLORIDE 107 96 - 108 mmol/L [facility] POTASSIUM 4.3 3.3 - 5.1 mmol/L [facility] CO2 25 21 - 35 mmol/L [facility] BUN 22(H) 6 - 19 mg/dL [facility] CREATININE 1.20 0.5 - 1.5 mg/dL [facility] GLUCOSE 106(H) 70 - 99 mg/dL [facility] CALCIUM 9.0 8.4 - 10.3 mg/dL [facility] EGFR 61 >59 mL/min/1.7 3m2 [facility] Comment:Estimated glomerular filtration rate calculated using the CKD-EPI refit equation. ANION GAP 15 10 - 20 mmol/L [facility] Blood 11/01/2022 2:3 7 PM EDT 11/01/2022 2:40 PM EDT Kieran Whitfield MD LAB BLOOD ORDERABLES Final Result [address] [address] from Last 3 Months or Most Recently Relevant to Health Maintenance Insurance MEDICARE PART A & B [place] [employer] MEDEX SUPPLEMENT MEDICARE PART A & B [employer] MED[employer] SUPPLEMENT MEDICARE PART A & B [employer] MEDEX SUPPLEMENT MEDICARE PART A & B [place] MEDEX SUPPLEMENT MEDICARE PART A & B [employer] MEDEX SUPPLEMENT MEDICARE PART A & B Member Subscriber Plan / Payer ([facility] Name:Ozzie Langford Member ID:[id number] Relation to Subscriber:Self Name:Ozzie Langford Subscriber ID:[id number] Payer ID:[id number] Group ID:Not on file Type:Medicare Address: [employer] [address] [place] [id number] [employer] MEDEX SUPPLEMENT Member Subscriber Plan / Payer ([facility] 12/06/2011-) Name:Yoeltico Ozzie Relation to Subscriber:Self Name:Ozzie Langford Payer ID:[id number] (NAIC) Type:Indemnity Address: [place] [address] MEDICARE PART A & B Desti [place] MEDEX SUPPLEMENT MEDICARE PART A & B [employer] MEDEX SUPPLEMENT MEDICARE PART A & B [employer] MEDEX SUPPLEMENT Advance Directives For more information, please contact: [phone] (9AM - 5PM [facility], Thursday-Thursday) * Full Code (Confirmed) (Latest Code Status on File) Date Activated Date Inactivated Comments 07/15/2017 6:11 PM 07/17/2017 6:12 PM Question Answer Comments Code Discussion Comments: patient Healthcare Agents on File Name Relationship Healthcare Agent Relationshi p Communication Nancy Langford Spouse .Primary Health Care Agent (Proxy form on file) Care Teams Licensed Pharmacist Relationship Specialty Start Date End Date Soo Rodney MD [address] [place] [phone] [email or web address] PCP - General Family Medicine 02/24/24 Additional Source Comments The information contained in this document represents components of the legal health record. It is not the complete legal health record.[facility]
--- OUTSIDE RECORDS SUMMARY | 2025-01-02 12:22 | XMS_ITS | Encounter Summary ---
Author Organization [facility] Address [address] [facility] [address] [place] [address] Phone Care Team Providers Care Vice President & General Manager [employer] Name Role Phone Soo Rodney MD Primary Care Provider + Encounter Details Date Type Department Care Team (Late st Contact Info) Description 02/24/2024 Procedure Pass [facility], [address] [address] Social History Tobacco Use Types Packs/Day Years [...] Description 06/28/2025 1:20 PM EDT Office Visit [facility] [address] [place] [address] 3rd Floor, [address] [place] [address] Nawaf Trevino MD [address] [place] [address] [email or web address] documented as of this encounter Visit Diagnoses Not on filedocumented in this encounter Care Teams Vice President & General Manager [employer] Relationship Specialty Start Date End Date Soo Rodney MD [address] [place] [phone] [email or web address] PCP - General Family Medicine 02/24/24 documented as of this encounter Additional Source Comments The information contained in this document represents components of the legal health record. It is not the complete legal health record.[facility]
--- OUTSIDE RECORDS SUMMARY | 2025-01-02 12:22 | XMS_ITS | Encounter Summary ---
Author Organization [facility] Address [address] [facility] [address] [place] [address] Phone Care Team Providers Care Porcelain Enameler Name Role Phone Soo Rodney MD Primary Care Provider + Encounter Details Date Type Department Care Team (Late st Contact Info) Description 02/24/2024 Procedure Pass [facility], [address] [address] Social History Tobacco Use Types Packs/Day Years [...] Description 06/28/2025 1:20 PM EDT Office Visit [facility] [address] [place] [address] [address]rd Floor, [address] [place] [address] Nawaf Trevino MD [address] [place] [phone] [email or web address] documented as of this encounter Visit Diagnoses Not on filedocumented in this encounter Care Teams Porcelain Enameler Relationship Specialty Start Date End Date Soo Rodney MD [address] [place] [phone] [email or web address] PCP - General Family Medicine 02/24/24 documented as of this encounter Additional Source Comments The information contained in this document represents components of the legal health record. It is not the complete legal health record.[facility]
--- OUTSIDE RECORDS SUMMARY | 2025-01-02 12:22 | XMS_ITS | Encounter Summary ---
Author Organization [facility] Address [address] [place] [address] Phone Care Team Providers Care Speech Language Therapist Name Role Phone Barry Villareal MD Primary Care Provider [phone] Silke Markham Primary Care Provider [phone] Soo Rodney MD Primary Care Provider + Soo Rodney MD Primary Care Provider + Encounter Details Date Type Department Care Team (Latest Contact Info) Description 12/16/2017 Transcribe Orders [facility] Laboratory [address] [id number] Narciso Mendez MD [address] [place] [address], [place] [address] [email or web address] Prostate cancer (Primary Dx) Social History Tobacco Use Types Packs/Day Years Used Date Smoking Tobacco: Former Smokeless Tobacco: Never Alcohol Use Standard Drinks/Week Comments Yes 0 (1 standard drink = 0.6 oz pur e alcohol) Sex and Gender Information Value Date Recorded Sex Assigned at Male 07/15/2017 10:29 AM EDT Legal Sex Male 10:10 PM EDT Gender Identity Male 07/15/2017 10:29 AM EDT Sexual Orientation Straight 07/15/2017 10 :29 AM EDT documented as of this encounter Plan of Treatment Upcoming Encounters Date Type Department Care Team (Late st Contact Info) Description 06/28/2025 1:20 PM EDT Office Visit [facility] [address] [place] [address] 3rd Floor, [address] [place] [address] Nawaf Trevino MD [address] [place] [address] [email or web address] documented as of this encounter Results * PSA (screening) (12/16/2017 10:55 AM EDT) PSA 0.25 0 - 4.00 ng/mL [facility] Blood 12/16/2017 10:5 5 AM EDT 12/16/2017 11:02 AM EDT us Narciso Mendez MD LAB BLOOD ORDERABLES Final Resu lt [facility] [address] [place] [address] documented in this encounter Visit Diagnoses Diagnosis Prostate cancer- Primary Malignant neoplasm of prostate documented in this encounter Care Teams Speech Language Therapist Relationship Specialty Start Date End Date Barry Villareal MD [address] [place] [address] [email or web address] - General Family Medicine 07/15/17 04/04/19 Silke Markham PA [address] [place] [address] [email or web address] - General 04/05/19 10/05/22 Soo Rodney MD [address] [place] [address] [email or web address] - General Family Medicine 10/06/22 02/23/24 Soo Rodney MD [address] [place] [address] [email or web address] [email or web address] - General Family Medicine 02/24/24 documented as of this encounter Additional Source Comments The information contained in this document represents components of the legal health record. It is not the complete legal health record.[facility]
== END 2025-01-02 11:38 | disposition home or self-care (01) ==
LOC: HO.HSMS 10:51
PROVIDERS: PCP Family Medicine; Visit Provider Psychiatry & Neurology Neurology
DX: G20.A1 Parkinson's disease without dyskinesia, without mention of fluctuations (principal); I95.1 Orthostatic hypotension; G47.52 REM sleep behavior disorder; R48.8 Other symbolic dysfunctions
CPT/HCPCS: 99214; G2211

== ENCOUNTER → 2025-01-02 10:50 | Outpatient (BNVA) | payer MEDICARE, BC, SELFPAY | PROVIDERS: PCP Family Medicine; Visit Provider Psychiatry & Neurology Neurology | DX: G20.A1 Parkinson's disease without dyskinesia, without mention of fluctuations (principal); I95.1 Orthostatic hypotension; G47.52 REM sleep behavior disorder; R48.8 Other symbolic dysfunctions | CPT/HCPCS: 99212 ==